=== PATIENT | female | born 1960 | race Caucasian/White ===

== ENCOUNTER → 2019-08-02 09:09 | Outpatient (CLI) | payer MEDICARE, MEDICAID, SELFPAY ==
--- NOTE | ~2019-08-02 | CT_ITS ---
EXAMINATION: CT abdomen pelvis wo con EXAM DATE: 08/02/2019 09:50 INDICATION: Left lower quadrant pain. Nausea TECHNIQUE: Spiral CT of the abdomen and pelvis was performed without contrast. Axial, coronal and s agittal images were reviewed. The dose-length product (DLP) for this examination was 348.33 mGy-cm. The exposure was tailored according to patient size (auto mA exposure control), and iterative recons truction (ASIR) was used as additional dose reduction technique. Comparison is made to prior examinat ion from 12/08/2017. FINDINGS: The liver, spleen, adrenal glands and pancreas are unremarkable. There are cholecystectomy clips. There is no nephrolithiasis or hydronephrosis. The uterus is anteverted and morphologicall y normal. The bladder is unremarkable. There is no retroperitoneal or pelvic lymphadenopathy. Th ere is mild scattered arteriosclerotic disease. The appendix is normal. The stomach and small bowel are unremarkable. There is expected amount of c olonic stool. No free intraperitoneal gas. The heart is normal in size. There are no pericardial or pleural effusions. The lung bases are unremarkable. There are no osteoblastic or osteolytic les ions identified. IMPRESSION: No acute intra-abdominal findings. Reviewed, dictated and finalized at location B. 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
== END ==
PROVIDERS: Visit Provider Surgery
DX: N20.0 Calculus of kidney (principal)
CPT/HCPCS: 74176

== ENCOUNTER 2019-09-20 12:03 | Outpatient (CLI) | payer MEDICARE, SELFPAY ==
--- NOTE | ~2019-09-20 | XR_ITS ---
EXAMINATION: XR chest 2V DATE: 09/20/2019 12:23 INDICATION: Left-sided chest tightness TECHNIQUE: PA and lateral views of the chest are obtained. COMPARISON: 04/06/2019 FINDINGS: The lungs are free of acute opacities. There is no pleural effusion or pneumothorax. The ca rdiomediastinal silhouette is normal. There is mild lower thoracic dextrocurvature. Surgical clips in the right upper quadrant are likely from prior cholecystectomy. IMPRESSION: 1. No acute cardiopulmonary abnormality. Reviewed, dictated and finalized at location A.
== END 2019-09-20 12:04 ==
PROVIDERS: PCP Family Medicine; Visit Provider Nurse Practitioner
DX: R09.89 Other specified symptoms and signs involving the circulatory and respiratory systems (principal); R06.89 Other abnormalities of breathing
CPT/HCPCS: 71046

== ENCOUNTER 2020-02-16 17:09 | Outpatient (CLI) | payer MEDICARE, SELFPAY ==
--- NOTE | ~2020-02-16 | MM_ITS ---
EXAMINATION: MM screening [facility] BI w julio césar HISTORY: Screening mammogram TECHNIQUE: Craniocaudal and mediolateral oblique 3-D tomosynthesis images were obtained and synthetic 2-D images were generated. CAD analysis was submitted and interpreted. COMPARISON: 01/20/2019, 01/08/2018, 01/01/2017 BREAST PARENCHYMAL COMPOSITION: The breasts are heterogeneously dense, which may obscure small masses . FINDINGS: There is no evidence of suspicious mass, calcification, or architectural distortion to sugg est malignancy in either breast. There has been no suspicious interval change. IMPRESSION: 1. No mammographic evidence of malignancy. 2. Recommend routine screening mammography in one year. BI-RADS Category 1: Negative Reviewed, dictated and finalized at location A.
== END 2020-02-16 17:10 | disposition home or self-care (01) ==
LOC: ANHIMG 17:11
PROVIDERS: PCP Family Medicine; Visit Provider Family Medicine
DX: Z12.31 Encounter for screening mammogram for malignant neoplasm of breast (principal)
CPT/HCPCS: 77063; 77067

== ENCOUNTER 2020-04-30 10:15 | Emergency (ER) | payer MEDICARE, SELFPAY ==
[2020-04-30 10:28] VITALS: BP 139/67; PULSE 79; RESP 16; TEMP 36.6
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
[2020-04-30] MEDS: TETANUS,DIPHTHERIA,AC PERTUSSIS ADULT (0.5 ML) BOOSTRIX IM (10:52)
== END 2020-04-30 11:15 | disposition home or self-care (01) ==
PROVIDERS: Emergency Provider Nurse Practitioner; PCP Family Medicine
DX: L03.113 Cellulitis of right upper limb (principal); Z23 Encounter for immunization; J44.9 Chronic obstructive pulmonary disease, unspecified
CPT/HCPCS: 90471; 90715; 99213; G0463

== ENCOUNTER 2020-07-16 10:19 | Outpatient (CLI) | payer MEDICARE, SELFPAY ==
--- NOTE | ~2020-07-16 | US_ITS ---
EXAMINATION: US pelvic complete w TV EXAM DATE: 07/16/2020 10:56 INDICATION: R10.2 - Pelvic and perineal pain. TECHNIQUE: Pelvic transabdominal and transvaginal sonogram was performed. There are multiple graysca le and Doppler images available for interpretation. Comparison is made to prior examination from 10/13. FINDINGS: Uterus measures 6.4 x 3.5 x 3.1 cm, is anteverted and morphologically normal. Endometrial stripe measures 5 mm, within normal limits. There is no free pelvic fluid. Right adnexa: The ovary is not identified. There is no adnexal mass. Left adnexa: The ovary measures 3.3 x 1.5 x 0.9 cm and is morphologically normal. Ovarian vascular fl ow confirmed. IMPRESSION: 1. Unremarkable pelvic ultrasound exam. Reviewed, dictated and finalized at location A. 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
== END 2020-07-16 10:20 | disposition home or self-care (01) ==
PROVIDERS: PCP Family Medicine; Visit Provider Obstetrics & Gynecology
DX: R10.2 Pelvic and perineal pain (principal)
CPT/HCPCS: 76830; 76856

== ENCOUNTER 2020-08-29 09:42 | Emergency (ER) | payer MEDICARE, SELFPAY ==
[2020-08-29] VITALS (12 sets, daily range): BP systolic 125; BP diastolic 56; PULSE 63–97; RESP 12–22; TEMP 36.4; O2SAT 100
--- NOTE | ~2020-08-29 | XR_ITS ---
EXAMINATION: XR chest 1V portable EXAM DATE: 08/29/2020 10:30 INDICATION: Mid chest pain. TECHNIQUE: Portable AP frontal chest x-ray was obtained. Comparison is made to prior examination from 09/20/2019. FINDINGS: The lungs are clear. There are no pleural effusions. The cardiomediastinal silhouette is within normal limits. There is no pneumothorax suspected. The bones and soft tissues are unremarkab le. There is no significant interval change. IMPRESSION: No acute cardiopulmonary findings. Reviewed, dictated and finalized at location B. 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
--- NOTE | 2020-08-29 09:59 | ECG_ITS ---
Measurements Intervals [place] Rate: 87 P: 58 MT: 116 QRS: 45 QRSD: 88 T: 38 QT: 345 QTc: 415 Interpretive Statements SINUS RHYTHM WITH SHORT MT INTERVAL BORDERLINE ECG Electronically Signed On 08-29-2020 10:20:39 EMPLOYMENT ADVISOR by Sam Caicedo D.O.
[2020-08-29] MEDS: ASPIRIN 81 MG CHEWABLE TABLET 324 MG PO (10:14)
--- NOTE | 2020-08-29 10:27 | ED.CHESTPAIN ---
HPI - Chest Pain General Chief Complaint: Chest Pain Stated Complaint: back pain/chest pain Time Seen by Provider: 08/29/20 09:52 Source: patient Mode of arrival: ambulatory Limitations: no limitations History of Present Illness HPI narrative: Patient presents for evaluation of an episode of 15 minutes of shooting pains that originated in her back came around both shoulders across the left side of her chest into her left arm. 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 Patient states when she stood up and took some deep breaths the pain resolved on its own within 15 minutes. Patient denies any palpitations, syncope, shortness of breath, diaphoresis, nausea, vomiting, diarrhea. She states she has been healthy recently and without any illness such as fever, chills, cough, shortness of breath. Patient states she does not have COPD and she is a smoker however she is working on smoking cessation. She states at this time she feels a little nervous but denies having any other symptoms. Patient denies history of heart attack or stroke. Patient denies having high blood pressure diabetes or high cholesterol. Related Data Allergies Allergy/AdvReac Type Severity Reaction Status Date / Time prednisone Allergy Intermediate HIVES Verified 08/29/20 09:59 Review of Systems Review of Systems: Narrative: CONSTITUTIONAL: Denies fever, chills, or sweats. EYES: Denies visual changes, redness, or discharge. ENT: Denies rhinorrhea, congestion, sore throat, or otalgia. CARDIOVASCULAR: Reports resolved shooting pain in back and chest denies current chest pain, palpitations, or edema. RESPIRATORY: Denies cough or dyspnea. GASTROINTESTINAL: Denies abdominal pain, nausea, vomiting, or diarrhea. GENITOURINARY: Denies dysuria or hematuria. SKIN: Denies rash or itching. MUSCULOSKELETAL: Denies current back pain, myalgia, or joint pain NEUROLOGIC: Denies headache, numbness, dizziness, or weakness. PSYCHIATRIC: Denies anxiety or depression. [facility] Past Medical History Medical History (Updated 08/29/20 @ 13:44 by Gaston Berry PA-C) COPD (chronic obstructive pulmonary disease) History of kidney stones Pelvic pain in female Surgical History Surgical History H/O section H/O hernia repair Hx of cholecystectomy Family History Family History Father Cancer Mother Dementia Sibling Dementia Mother Family history of Alzheimer's disease Sibling Family history of dementia Mother Patient's mother is , Onset Age: 62 Family history of Alzheimer's disease Father Patient's father is , Onset Age: 64 Other Family history of malignant neoplasm of ovary Social History Social History Smoking status: Current every day smoker Tobacco type: cigarettes Smoking end date: 06/22/95 Alcohol intake: current Exam Narrative: Exam Narrative: GENERAL: Well-appearing, well-nourished. HEAD: Normocephalic, atraumatic. EYES: PERRLA and EOMI. ENT:Mucous membranes moist. Bilateral TMs pearly chiang nonbulging NECK: Supple. No adenopathy or masses. No vertebral tenderness or loss of ROM. CHEST: Clear to auscultation. No respiratory distress. No wheezes rales or rhonchi HEART: Regular rate and rhythm. Cap refill intact peripherally. ABDOMEN: Soft, nontender, nondistended, normal active bowel sounds. No bruises noted. EXTREMITIES: No acute changes in ROM. No edema. SKIN: Warm, dry, no rash. NEURO: No focal deficits. Alert and oriented x3. PSYCH: Normal mood and affect. Course Vital Signs Vital signs: Vital Signs Temperature 97.5 F L 08/29/20 09:55 Pulse Rate 93 08/29/20 09:55 Respiratory Rate 16 08/29/20 09:55 Blood Pressure 125/56 L 08/29/20 09:55 Pul
[2020-08-29 10:43] LABS: Basophils Absolute Auto 0.1 K/mm3 (0.0-0.1); Basophils Percent Auto 1.1 % (0.2-1.2); Eosinophils Absolute Auto 0.1 K/mm3 (0-0.3); Eosinophils Percent Auto 1.5 % (0-4.4); Hematocrit 43.8 % (37.0-47.0); Hemoglobin 14.8 g/dL (12.0-15.0); Immature Granulocyte Absolute 0.01 K/mm3 (0.00-0.031); Immature Granulocyte Percent A 0.2 % (0-0.5); Lymphocytes Percent Auto 35.7 % (18.3-44.2); Mean Corpuscular HGB Conc 33.8 g/dl (32-36); Mean Corpuscular Hemoglobin 35.1 pg (26-34); Mean Corpuscular Volume 103.8 fl (80-100); Mean Platelet Volume 8.4 fl (7.4-10.4); Monocytes Absolute Auto 0.5 K/mm3 (0.1-0.6); Neutrophils Absolute Auto 2.7 K/mm3 (1.3-6.7); Neutrophils Percent Auto 51.5 % (45.5-73.1); Platelet Count Result 223 k/mm3 (150-375); Red Blood Count 4.22 M/mm3 (4.2-5.4); Red Cell Distribution Width 12.6 % (11.5-14.5); White Blood Count 5.3 K/mm3 (4.5-10.0)
[2020-08-29 10:53] LABS: Add Urine Microscopic? YES; Appearance Urine Cloudy (Clear); Bilirubin Urine Negative (Negative); Blood Urine Negative (Negative); Color Urine Yellow (Yellow); Glucose Urine UA Negative (Negative); Ketones Urine Negative (Negative); Leukocyte Esterase Ur Negative LEU/UL (Negative); Mucus Urine Rare /lpf; Nitrate Urine Negative (Negative); Protein Urine Negative (Negative); Specific Grav Ur 1.015 (1.001-1.035); Squamous Epithelial Cell Urine Many /hpf (Few); Urobilinogen Urine Negative mg/dL (<2.0); WBC Urine 0-3 /hpf
[2020-08-29 10:54] LABS: Alanine Aminotransferase 22 U/L (4-35); Albumin Level 4.3 g/dL (3.5-5.1); Alkaline Phosphatase 63 U/L (38-126); Anion Gap 4 mmol/L (8-16); Aspartate Amino Transferase 34 U/L (14-36); Bilirubin,Total 0.4 mg/dL (0.2-1.3); Blood Urea Nitrogen 13 mg/dL (7-17); Carbon Dioxide 34 mmol/L (22-30); Chloride 100 mmol/L (98-107); Estimated CRCL calculation 45 ml/min; Estimated Glomerular Filt Rate > 60; Glucose 115 mg/dL (65-105); Potassium 3.8 mmol/L (3.4-5.0); Sodium 138 mmol/L (137-145)
[2020-08-29 10:55] LABS: INR 0.9; Prothrombin Time 12.3 Seconds (11.1-14.7)
[2020-08-29 10:56] LABS: Partial Thromboplastin Time 23.5 SECONDS (22.3-36.8)
[2020-08-29 10:59] LABS: Amphetamine Screen Urine Negative (Negative); Barbiturate Screen Urine Negative (Negative); Benzodiazepines Screen Urine Negative (Negative); Cannabinoid Screen Urine Negative (Negative); Cocaine Screen Urine Negative (Negative); Methadone Screen Urine Negative (Negative); Opiate Screen Urine Negative (Negative); Phencyclidine Screen Urine Negative (Negative)
[2020-08-29 11:06] LABS: Troponin I < 0.012 ng/mL (0.000-0.034)
[2020-08-29 13:18] LABS: Troponin I < 0.012 ng/mL (0.000-0.034)
== END 2020-08-29 14:00 | disposition home or self-care (01) ==
PROVIDERS: Physician Assistant; Emergency Provider Emergency Medicine; PCP Family Medicine
DX: R07.9 Chest pain, unspecified (principal); J44.9 Chronic obstructive pulmonary disease, unspecified; Z87.442 Personal history of urinary calculi; F17.210 Nicotine dependence, cigarettes, uncomplicated; R94.31 Abnormal electrocardiogram [ECG] [EKG]
CPT/HCPCS: 36415; 71045; 80053; 80307; 81001; 84484; 85025; 85610; 85730; 93005; 99284; A9270

== ENCOUNTER 2021-07-02 15:23 | Outpatient (CLI) | payer MEDICARE, SELFPAY ==
--- NOTE | ~2021-07-02 | MM_ITS ---
EXAMINATION: MM screening [facility] BI w julio césar HISTORY: Screening TECHNIQUE: Craniocaudal and mediolateral oblique 3-D tomosynthesis images were obtained and synthetic 2-D images were generated. CAD analysis was submitted and interpreted. COMPARISON: Comparison to multiple prior studies sequentially, with oldest reviewed study dated 03/01. BREAST PARENCHYMAL COMPOSITION: The breasts are heterogenously dense, which may obscure small masses FINDINGS: There is no evidence of suspicious mass, calcification, or architectural distortion to sugg est malignancy in either breast. There has been no suspicious interval change. IMPRESSION: 1. No mammographic evidence of malignancy. 2. Recommend routine screening mammography in one year. BI-RADS Category 1: Negative Reviewed, dictated and finalized at location A. NESS CONTINUITY DIRECTOR
== END 2021-07-02 15:24 | disposition home or self-care (01) ==
LOC: ANHIMG 15:26
PROVIDERS: PCP Family Medicine; Visit Provider Family Medicine
DX: Z12.31 Encounter for screening mammogram for malignant neoplasm of breast (principal)
CPT/HCPCS: 77063; 77067

== ENCOUNTER 2021-09-25 16:04 | Outpatient (CLI) | payer MEDICARE, MEDICAID, SELFPAY ==
--- NOTE | ~2021-09-25 | CT_ITS ---
EXAMINATION: CT abdomen pelvis wo con DATE: 09/25/2021 16:42 INDICATION: Flank pain. Pelvic pain. TECHNIQUE: Computed tomography (CT) of the abdomen and pelvis was performed without intravenous contr ast. Automated exposure control and iterative reconstruction technique were employed. The dose-length product was 174.40 mGy-cm. COMPARISON: CT abdomen and pelvis 08/02/2019 FINDINGS: The visualized portions of the lung bases demonstrate mild atelectasis. No pleural effusion . The heart size is normal. No pericardial effusion. The liver and spleen are normal. There are hernadez es of cholecystectomy. The pancreas, adrenal glands, and kidneys are normal. There is no urolithiasis . There is a skin marker in left lower quadrant overlying a left-sided spigelian hernia containing fa t. The appendix is normal. There are no dilated loops of bowel. There are no pathologically enlarged lymph nodes. There is no free intraperitoneal fluid. There is severe lumbar spondylosis. There is mil d chronic anterior wedging of T11 and T12 vertebral bodies. IMPRESSION: 1. Left-sided spigelian hernia containing fat. Reviewed, dictated and finalized at location A.
== END 2021-09-25 16:05 | disposition home or self-care (01) ==
PROVIDERS: PCP Family Medicine; Visit Provider Family Medicine
DX: R10.2 Pelvic and perineal pain (principal)
CPT/HCPCS: 74176

== ENCOUNTER 2022-08-27 15:56 | Outpatient (CLI) | payer MEDICARE, SELFPAY ==
--- NOTE | ~2022-08-27 | CT_ITS ---
Non-contrast CT scan of the Abdomen and Pelvis Clinical indication: Abdominal pain Technique: 2.5 mm axial scans were obtained through the abdomen and pelvis without intravenous or or al contrast. Dose reduction technique was used on this scan by utilizing automated exposure control a nd iterative reconstruction technique. The dose-length product (DLP) was 180.83 mGy-cm. COMPARISON: 09/25/2021 Findings: Images through the lung bases reveal no abnormalities. There is no evidence of renal or ureteral calculi. The kidneys and the ureters are nondilated. Stable small hepatic cyst noted. Cholecystectomy clips present. The spleen, pancreas, and adrenals ap pear normal. There is no aortic aneurysm. There are atherosclerotic calcifications of the aorta. There is no evidence of bowel obstruction. No evidence for appendicitis. Images through the pelvis were performed. There is no evidence of ascites or lymphadenopathy. Urinary bladder unremarkable. No adnexal mass evident. Impression: No significant abnormality seen. Reviewed, dictated and finalized at [facility]. 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
== END 2022-08-27 15:57 | disposition home or self-care (01) ==
PROVIDERS: PCP Family Medicine; Visit Provider Family Medicine
DX: R10.31 Right lower quadrant pain (principal)
CPT/HCPCS: 74176

== ENCOUNTER 2022-09-17 09:20 | Emergency (ER) | payer MEDICARE, SELFPAY ==
--- NOTE | ~2022-09-17 | XR_ITS ---
XR chest 1V portable DATE: 09/17/2022 10:37 INDICATION: Cough, upper respiratory infection TECHNIQUE: Portable upright AP chest on 09/17/2022 at 1033 hours COMPARISON: 08/29/2020 portable AP chest FINDINGS: Normal heart size. Mild aortic unfolding. No hilar or mediastinal enlargement. The lungs appear moderately hyperinflated but clear of infiltrate or consolidation. No pleural effusi on or pulmonary vascular congestion or pneumothorax. Osteopenia. Mild upper thoracic levoscoliosis. IMPRESSION: No active cardiopulmonary disease Reviewed, dictated and finalized at location B.
[2022-09-17 09:22] VITALS: BP 120/68; PULSE 81; RESP 20; TEMP 36.1; O2SAT 97
[2022-09-17 10:12] LABS: Influenza A QL RT-PCR Negative (Negative); Influenza B QL RT-PCR Negative (Negative); SARS-CoV-2 RNA PCR Negative
[2022-09-17 11:18] VITALS: BP 116/71; PULSE 70; RESP 20; O2SAT 98
--- NOTE | 2022-09-17 11:35 | ED.GENADULT ---
HPI - General Adult General Chief complaint: Upper Respiratory Infection Stated complaint: uri Time Seen by Provider: 09/17/22 10:30 Source: patient Mode of arrival: ambulatory Limitations: no limitations History of Present Illness HPI narrative: This is a 62-year-old patient presents to the ED with chief complaint of viral URI symptoms x1 week. Reports cough, congestion, runny nose and sore throat. She states she has tried multiple [id number] medicines with no relief of the cough. She has a regular PCP that she is able to see. Patient denies fevers, shortness of breath, chest pain. PCP recommended going to the ER in case she needs an x-ray. Related Data Home Medications Medication Instructions Recorded Confirmed albuterol sulfate 90 mcg/actuation 1 puff inhalation Q4H PRN 12/03/21 aerosol inhaler cholecalciferol (vitamin D3) 50 50 mcg PO DAILY 12/03/21 mcg (2,000 unit) tablet meloxicam 15 mg tablet 15 mg PO DAILY 12/03/21 Allergies Allergy/AdvReac Type Severity Reaction Status Date / Time morphine Allergy Intermediate Hives Verified 12/03/21 14:29 prednisone Allergy Intermediate HIVES Verified 12/03/21 14:29 tramadol Allergy Intermediate Hives Uncoded 12/03/21 14:29 Review of Systems Review of Systems: CONSTITUTIONAL: Denies fever, chills, or sweats. EYES: Denies visual changes, redness, or discharge. ENT: Endorses sore throat, congestion, rhinorrhea, sinus pressure. Denies otalgia. CARDIOVASCULAR: Denies chest pain, palpitations, or edema. RESPIRATORY: Endorses cough. Denies dyspnea. GASTROINTESTINAL: Denies abdominal pain, nausea, vomiting, or diarrhea. GENITOURINARY: Denies dysuria or hematuria. SKIN: Denies rash or itching. MUSCULOSKELETAL: Denies back pain, joint pain, or myalgia. NEUROLOGIC: Denies headache, numbness, dizziness, or weakness. PSYCHIATRIC: Denies anxiety or depression. [facility] Past Medical History Medical History (Updated 09/17/22 @ 11:39 by Harry Ly PA-C) COPD (chronic obstructive pulmonary disease) History of kidney stones Pelvic pain in female Surgical History Surgical History H/O section H/O hernia repair Hx of cholecystectomy Family History Family History Father Cancer Mother Dementia Sibling Dementia Mother Family history of Alzheimer's disease Sibling Family history of dementia Mother Patient's mother is , Onset Age: 62 Family history of Alzheimer's disease Father Patient's father is , Onset Age: 64 Other Family history of malignant neoplasm of ovary Social History Social History Smoking status: Current every day smoker Tobacco type: cigarettes Smoking end date: 06/22/95 Alcohol intake: current Substance use: never Living arrangements: with family Exam Narrative: GENERAL: Well-appearing, well-nourished, and in no acute distress. HEAD: Normocephalic, atraumatic. EYES: PERRLA and EOMI. ENT: Nares clear, no rhinorrhea or epistaxis. Mucous membranes moist. Oropharynx without tonsillar hypertrophy exudate or other lesions. NECK: Supple. No adenopathy or masses. CHEST: No respiratory distress. Clear to auscultation. No wheezes rales or rhonchi HEART: Regular rate and rhythm. No murmur heard. Normal peripheral pulses. ABDOMEN: Soft, nontender, nondistended, normal active bowel sounds. EXTREMITIES: Normal range of motion. No edema. SKIN: Warm, dry, no rash. NEURO: Alert and oriented x3. No focal deficits. PSYCH: Normal mood and affect. Course Vital Signs Vital signs: Vital Signs Temperature 97.0 F L 09/17/22 09:22 Pulse Rate 81 09/17/22 09:22 Respiratory Rate 20 09/17/22 09:22 Blood Pressure 120/68 09/17/22 09:22 Pulse Oximetry 97 09/17/22 09:22 Oxygen Delivery Room Air 09/17/22 09:22 Temperature
== END 2022-09-17 11:58 | disposition home or self-care (01) ==
PROVIDERS: Emergency Medicine; Emergency Provider Physician Assistant; PCP Family Medicine
DX: J06.9 Acute upper respiratory infection, unspecified (principal); F17.210 Nicotine dependence, cigarettes, uncomplicated; Z20.822 Contact with and (suspected) exposure to COVID-19
CPT/HCPCS: 71045; 87636; 99283

== ENCOUNTER 2023-01-27 08:30 | Outpatient (CLI) | payer MEDICARE, MEDICAID, SELFPAY ==
--- NOTE | ~2023-01-27 | MR_ITS ---
EXAMINATION: MR abdomen wo/w con DATE: 01/27/2023 09:48 INDICATION: Right abdominal mass and pain. TECHNIQUE: Magnetic resonance imaging (MRI) of the abdomen was performed without and with 9 mL MultiH ance intravenous contrast. COMPARISON: CT abdomen and pelvis 08/27/2022 FINDINGS: There are cysts in the liver measuring up to 5 mm. The gallbladder is absent. The pancreas, spleen, a drenal glands, and kidneys are normal. There are no dilated loops of bowel. There are no pathological ly enlarged lymph nodes. There is no ascites. There is a right-sided spigelian hernia containing fat. IMPRESSION: 1. Right-sided spigelian hernia containing fat. Reviewed, dictated and finalized at location A.
== END 2023-01-27 08:31 | disposition home or self-care (01) ==
PROVIDERS: Visit Provider Surgery
DX: K43.9 Ventral hernia without obstruction or gangrene (principal); R22.2 Localized swelling, mass and lump, trunk; R10.31 Right lower quadrant pain
CPT/HCPCS: 74183; A9577

== ENCOUNTER 2023-05-12 10:07 | Emergency (ER) | payer MEDICARE, SELFPAY ==
[2023-05-12] VITALS (8 sets, daily range): BP systolic 123–129; BP diastolic 63–69; PULSE 57–81; RESP 12–24; TEMP 36.2; O2SAT 100
--- NOTE | ~2023-05-12 | XR_ITS ---
EXAMINATION: XR chest 2V 05/12/2023 11:00 INDICATION: Chest pain PROCEDURE: 2 view chest COMPARISON: Comparison to multiple prior studies sequentially, with oldest reviewed study dated 03/22. FINDINGS: The lungs are clear. The lungs are hyperinflated which is consistent with, but not diagnost ic of chronic obstructive pulmonary disease. The cardiomediastinal silhouette is within normal limits . There are no pleural effusions. There is no pneumothorax suspected. IMPRESSION: 1: NO ACUTE CARDIOPULMONARY DISEASE. Reviewed, dictated and finalized at location L. 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
--- NOTE | 2023-05-12 10:09 | ECG_ITS ---
Measurements Intervals [place] Rate: 71 P: 72 PA: 118 QRS: 78 QRSD: 81 T: 57 QT: 357 QTc: 390 Interpretive Statements SINUS RHYTHM WITH SHORT PA INTERVAL RSR' IN V1 OR V2, PROBABLY NORMAL VARIANT BORDERLINE T WAVE ABNORMALITY- ANTERIOR LEADS BASELINE ARTIFACT- I, III, AVR, AVL BORDERLINE ECG COMPARED TO ECG 08/29/2020 10:01:37 NO SIGNIFICANT CHANGES Electronically Signed On 05-12-2023 11:00:54 SHORE HAND DREDGE OR BARGE by Sam Caicedo D.O.
[2023-05-12 10:35] LABS: Basophils Absolute Auto 0.1 K/mm3 (0.0-0.1); Basophils Percent Auto 1.4 % (0.2-1.2); Eosinophils Absolute Auto 0.5 K/mm3 (0-0.3); Eosinophils Percent Auto 6.9 % (0-4.4); Hematocrit 41.7 % (37.0-47.0); Hemoglobin 13.5 g/dL (12.0-15.0); Immature Granulocyte Absolute 0.02 K/mm3 (0.00-0.031); Immature Granulocyte Percent A 0.3 % (0-0.5); Lymphocytes Percent Auto 35.3 % (18.3-44.2); Mean Corpuscular HGB Conc 32.4 g/dl (32-36); Mean Corpuscular Hemoglobin 33.6 pg (26-34); Mean Corpuscular Volume 103.7 fl (80-100); Mean Platelet Volume 8.5 fl (7.4-10.4); Monocytes Absolute Auto 0.5 K/mm3 (0.1-0.6); Monocytes Percent Auto 6.3 % (2.6-8.5); Neutrophils Absolute Auto 3.5 K/mm3 (1.3-6.7); Neutrophils Percent Auto 49.8 % (45.5-73.1); Platelet Count Result 245 k/mm3 (150-375); Red Blood Count 4.02 M/mm3 (4.2-5.4); Red Cell Distribution Width 12.8 % (11.5-14.5); White Blood Count 7.1 K/mm3 (4.5-10.0)
[2023-05-12 10:47] LABS: Partial Thromboplastin Time 21.5 SECONDS (22.3-36.8); Prothrombin Time 13.4 Seconds (11.1-14.7)
[2023-05-12 10:49] LABS: Alanine Aminotransferase 16 U/L (6-35); Albumin Level 4.1 g/dL (3.5-5.1); Alkaline Phosphatase 59 U/L (38-126); Anion Gap 8 mmol/L (8-16); Aspartate Amino Transferase 27 U/L (14-36); Bilirubin,Total 0.6 mg/dL (0.2-1.3); Blood Urea Nitrogen 16 mg/dL (7-17); Calcium 8.9 mg/dL (8.4-10.2); Carbon Dioxide 27 mmol/L (22-30); Chloride 105 mmol/L (98-107); Estimated CRCL calculation 52 ml/min; Estimated Glomerular Filt Rate > 60; Glucose 101 mg/dL (65-110); Lipase 177 U/L (23-300); Potassium 3.6 mmol/L (3.4-5.0); Sodium 140 mmol/L (137-145)
[2023-05-12 10:59] LABS: Troponin I < 0.012 ng/mL (0.000-0.034)
--- NOTE | 2023-05-12 11:25 | ED.CHESTPAIN ---
HPI - Chest Pain General Chief Complaint: Chest Pain Stated Complaint: L CHEST/ARM PAIN Time Seen by Provider: 05/12/23 11:09 History of Present Illness HPI narrative: 62-year-old female presents emergency department for evaluation of left-sided chest pain patient reports she had a short episode this morning where she had left-sided chest pain. Patient states he has had this pain previously. Patient is a smoker but denies any prior history of coronary artery disease. Patient denies any history of high cholesterol or hypertension. The patient does report a prior history of abdominal surgeries. Related Data Home Medications Medication Instructions Recorded Confirmed albuterol sulfate 90 mcg/actuation 1 puff inhalation Q4H PRN 12/03/21 aerosol inhaler cholecalciferol (vitamin D3) 50 50 mcg PO DAILY 12/03/21 mcg (2,000 unit) tablet meloxicam 15 mg tablet 15 mg PO DAILY 12/03/21 Allergies Allergy/AdvReac Type Severity Reaction Status Date / Time morphine Allergy Intermediate Hives Verified 12/03/21 14:29 prednisone Allergy Intermediate HIVES Verified 12/03/21 14:29 tramadol Allergy Intermediate Hives Uncoded 12/03/21 14:29 Review of Systems Review of Systems: All systems reviewed & are unremarkable except as noted in HPI and below PMFSH Past Medical History Medical History (Updated 05/12/23 @ 17:55 by Duane Dunn MD) COPD (chronic obstructive pulmonary disease) History of kidney stones Pelvic pain in female Surgical History Surgical History H/O section H/O hernia repair Hx of cholecystectomy Family History Family History Father Cancer Mother Dementia Sibling Dementia Mother Family history of Alzheimer's disease Sibling Family history of dementia Mother Patient's mother is , Onset Age: 62 Family history of Alzheimer's disease Father Patient's father is , Onset Age: 64 Other Family history of malignant neoplasm of ovary Social History Social History Smoking status: Current every day smoker Tobacco type: cigarettes Smoking end date: 06/22/95 Alcohol intake: current Substance use: never Living arrangements: with family Exam Narrative: APPEARANCE: Well appearing, no pain, no distress, well-nourished. HEAD: normocephalic, atraumatic. EYES: PERRLA/EOMI, conjunctivae clear. NOSE: Normal no drainage EARS:TMS clear with good light reflex. THROAT: Pharynx clear, no exudate. NECK: Supple. No adenopathy, no masses. RESPIRATORY: Airway patent, respirations nonlabored. Clear to auscultation bilaterally, no rales, rhonchi, wheezing. CARDIOVASCULAR: Regular rate and rhythm without murmurs rubs or gallops. ABDOMINAL: Soft, nontender, nondistended, normal bowel sounds MUSCULOSKELETAL: Moves all extremities. Strength/ROM intact, No edema, No calf tenderness. NEURO: Alert. Cranial nerves II through XII intact. Good gait. Good coordination SKIN: Warm, dry. Normal Color Course Course Emergency Course: the patient left AMA prior to completing her medical workup. Vital Signs Vital signs: Vital Signs Temperature 97.2 F L 05/12/23 10:21 Pulse Rate 81 05/12/23 10:21 Respiratory Rate 16 05/12/23 10:21 Blood Pressure 129/69 05/12/23 10:21 Pulse Oximetry 100 05/12/23 10:21 Oxygen Delivery Room Air 05/12/23 10:21 Temperature 97.2 F L 05/12/23 10:21 Pulse Rate 57 L 05/12/23 12:01 Respiratory Rate 24 H 05/12/23 12:01 Blood Pressure 126/63 05/12/23 12:01 Pulse Oximetry 100 05/12/23 12:01 Oxygen Delivery Room Air 05/12/23 10:21 MDM - Chest Pain Lab Data Attestation: I reviewed the patient's lab results. 05/12/23 10:27 05/12/23 10:27 Labs: Lab Results 05/12/23 Range/Units 10:27 WBC 7.1 (4.5-10.
== END 2023-05-12 12:36 | disposition left against medical advice (07) ==
LOC: ANHED 11:48
PROVIDERS: Emergency Provider Emergency Medicine; PCP Family Medicine
DX: R07.9 Chest pain, unspecified (principal); J44.9 Chronic obstructive pulmonary disease, unspecified; Z87.442 Personal history of urinary calculi
CPT/HCPCS: 36415; 71046; 80053; 83690; 84484; 85025; 85610; 85730; 93005; 99284

== ENCOUNTER 2023-11-23 12:57 | Emergency (ER) | payer MEDICARE, SELFPAY ==
--- NOTE | ~2023-11-23 | XR_ITS ---
EXAMINATION: XR lumbar spine min 4V DATE: 11/23/2023 15:03 INDICATION: Back pain. TECHNIQUE: 5 views of lumbar spine were obtained. COMPARISON: Lumbar spine radiographs 01/31/2019 FINDINGS: There is 6 degrees levocurvature of lumbar spine. There is 4 mm retrolisthesis of L3 on L4 and L4 on L5. Vertebral body heights are normal. There is severely decreased disc height at L3-L4 and mildly decreased disc height at L4-L5. There is multilevel mild facet joint osteoarthritis. Surgical clips in the right upper quadrant are likely from cholecystectomy. IMPRESSION: 1. Severe lumbar spondylosis. Reviewed, dictated and finalized at location A.
[2023-11-23 13:00] VITALS: BP 145/68; PULSE 97; RESP 16; TEMP 36.7; O2SAT 99
--- NOTE | 2023-11-23 14:45 | ED.LOWEXIN ---
HPI - Extremity Injury (Lower) General Chief Complaint: Extremity Injury, Lower <Dominga Storey PA-C - Last Filed: 11/23/23 14:55> Stated Complaint: right leg pain, history of sciatic nerve pain <Dominga Storey PA-C - Last Filed: 11/23/23 14:55> Time Seen by Provider: 11/23/23 14:45 <RACHELE Alvarado Last Filed: 11/23/23 14:55> Focused HPI: Patient is a 63 y/o female who presents to the ED with c/o R lower back pain. Patient reports having increased pain for the past 2 days. Hx of sciatica that felt similar. Denies any recent injury, strenuous activity, heavy lifting. Pain worse with movement and walking. Has been taking Ibuprofen for the pain w/o relief. Last took around 5am this morning. Denies numbness, weakness, saddle anesthesia, bowel/bladder incontinence, dysuria, hematuria, abdominal pain. GENERAL: Mildly uncomfortable-appearing, thin, and in no acute distress. HEAD: Normocephalic, atraumatic. CHEST: Clear to auscultation. ?No respiratory distress. HEART: Regular rate and rhythm.? MSK: TTP in R lower lumbar region, along SI joint, reproducing pain. Sensation intact. No midline spinal tenderness. NEURO: ?Alert and oriented x3. Patient screened in triage and initial orders placed.? ?Additional care and disposition to be based upon?diagnostic testing and treatment. <Dominga Storey PA-C - Last Filed: 11/23/23 14:55> Source: patient <Dominga Storey PA-C - Last Filed: 11/23/23 14:55> Mode of arrival: ambulatory <RACHELE Alvarado Last Filed: 11/23/23 14:55> Limitations: no limitations <RACHELE Alvarado Last Filed: 11/23/23 14:55> History of Present Illness HPI Narrative: Agree with HPI <Rehan Olivier MD - Last Filed: 11/23/23 19:32> Related Data Home Medications: Home Medications Medication Instructions Recorded Confirmed albuterol sulfate 90 mcg/actuation 1 puff inhalation Q4H PRN 12/03/21 05/21/23 aerosol inhaler cholecalciferol (vitamin D3) 50 50 mcg PO DAILY 12/03/21 05/21/23 mcg (2,000 unit) tablet ibuprofen 800 mg tablet 800 mg PO Q6H 05/20/23 05/21/23 <Dominga Storey PA-C - Last Filed: 11/23/23 14:55> Allergies/Adverse Reactions: Allergies Allergy/AdvReac Type Severity Reaction Status Date / Time morphine Allergy Intermediate Hives Verified 11/23/23 15:26 prednisone Allergy Intermediate HIVES Verified 11/23/23 15:26 tramadol Allergy Intermediate Hives Uncoded 11/23/23 15:26 <Dominga Storey PA-C - Last Filed: 11/23/23 14:55> Review of Systems Constitutional: Constitutional: Reports no additional constitutional complaints <Rehan Olivier MD - Last Filed: 11/23/23 19:32> Musculoskeletal: Musculoskeletal: Reports back pain, Denies arthralgias and Denies joint swelling <Rehan Olivier MD - Last Filed: 11/23/23 19:32> Integumentary/Breasts: Skin/Breast: Reports system reviewed and no additional complaints, except as docu <Rehan Olivier MD - Last Filed: 11/23/23 19:32> Neurologic: Reports system reviewed and no additional complaints, except as documented <Rehan Olivier MD - Last Filed: 11/23/23 19:32> [facility] Past Medical History Medical History: Medical History (Updated 11/23/23 @ 16:43 by Rehan Olivier MD) History of kidney stones Pelvic pain in female <Dominga Storey PA-C - Last Filed: 11/23/23 14:55> Surgical History Surgical History: Surgical History (Updated 05/21/23 @ 10:24 by Lorenza Antoine [facility]) H/O section H/O hernia repair 12/13/21 Left lower quadrant incisional hernia and repair of left femoral and obturator hernia repair. Dr. Salazar Walker, [facility] H/O hernia repair 04/21/23 Open left sided trocar incisional hernia repair, no mesh. Dr. Salazar Walker, [facility] Hx of cholecystectomy Hx of hernia repair 03/31/23 Robotic assisted right Spigelian hernia repair
[2023-11-23] MEDS: CYCLOBENZAPRINE HCL 5 MG TABLET PO (15:31)
[2023-11-23] MEDS: KETOROLAC (*BKC) 60 MG/2 ML VIAL IM (15:31)
[2023-11-23] MEDS: ACETAMINOPHEN 500 MG TABLET 1000 MG PO (15:32)
[2023-11-23 17:30] VITALS: BP 140/62; PULSE 96; RESP 18; O2SAT 99
[2023-11-23 17:31] VITALS: BP 140/62; PULSE 96; RESP 18; O2SAT 99
== END 2023-11-23 17:36 | disposition home or self-care (01) ==
PROVIDERS: Emergency Provider Emergency Medicine; PCP Family Medicine
DX: M54.41 Lumbago with sciatica, right side (principal); F17.210 Nicotine dependence, cigarettes, uncomplicated
CPT/HCPCS: 72110; 96372; 99283; A9270; J1885

== ENCOUNTER 2023-12-06 06:20 | Emergency (ER) | payer MEDICARE, SELFPAY ==
[2023-12-06 06:23] VITALS: BP 167/107; PULSE 84; RESP 16; TEMP 36.3; O2SAT 97
[2023-12-06] MEDS: CYCLOBENZAPRINE HCL 10 MG TABLET PO (07:26)
[2023-12-06] MEDS: HYDROcodone/acetaminophen (*CRX) 5-325 MG TABLET 1 TAB PO (07:26)
--- NOTE | 2023-12-06 07:39 | ED.GENADULT ---
HPI - General Adult General Chief complaint: Unspecified Stated complaint: sciatica Time Seen by Provider: 12/06/23 06:51 History of Present Illness HPI narrative: 63-year-old female presenting to the emergency department for evaluation for back pain. Patient does have history of sciatica and has had worsening sciatica symptoms for the last few weeks. Patient did have follow-up with her physician yesterday and was started on ibuprofen, muscle relaxant and gabapentin. Patient arrives to the emergency department complaining of uncontrolled pain. Related Data Home Medications Medication Instructions Recorded Confirmed albuterol sulfate 90 mcg/actuation 1 puff inhalation Q4H PRN 12/03/21 05/21/23 aerosol inhaler cholecalciferol (vitamin D3) 50 50 mcg PO DAILY 12/03/21 05/21/23 mcg (2,000 unit) tablet ibuprofen 800 mg tablet 800 mg PO Q6H 05/20/23 05/21/23 Allergies Allergy/AdvReac Type Severity Reaction Status Date / Time morphine Allergy Intermediate Hives Verified 12/06/23 06:28 prednisone Allergy Intermediate HIVES Verified 12/06/23 06:28 tramadol Allergy Intermediate Hives Verified 12/06/23 07:18 Review of Systems Review of Systems: All systems reviewed & are unremarkable except as noted in HPI and below PMFSH Past Medical History Medical History (Updated 12/06/23 @ 08:42 by Duane Dunn MD) History of kidney stones Pelvic pain in female Surgical History Surgical History (Updated 05/21/23 @ 10:24 by Lorenza Antoine CMA) H/O section H/O hernia repair 12/13/21 Left lower quadrant incisional hernia and repair of left femoral and obturator hernia repair. Dr. Salazar Walker [facility] H/O hernia repair 04/21/23 Open left sided trocar incisional hernia repair, no mesh. Dr. Salazar Walker [facility] Hx of cholecystectomy Hx of hernia repair 03/31/23 Robotic assisted right Spigelian hernia repair. Dr. Salazar Walker [facility] Family History Family History Father Cancer Mother Dementia Sibling Dementia Mother Family history of Alzheimer's disease Sibling Family history of dementia Mother Patient's mother is , Onset Age: 62 Family history of Alzheimer's disease Father Patient's father is , Onset Age: 64 Other Family history of malignant neoplasm of ovary Social History Social History Smoking status: Current every day smoker Tobacco type: cigarettes Smoking end date: 06/22/95 Alcohol intake: current Substance use: never Living arrangements: with family Exam Narrative: APPEARANCE: Uncomfortable appearing HEAD: normocephalic, atraumatic. EYES: PERRLA/EOMI, conjunctivae clear. NOSE: Normal no drainage EARS:TMS clear with good light reflex. THROAT: Pharynx clear, no exudate. NECK: Supple. No adenopathy, no masses. RESPIRATORY: Airway patent, respirations nonlabored. Clear to auscultation bilaterally, no rales, rhonchi, wheezing. CARDIOVASCULAR: Regular rate and rhythm without murmurs rubs or gallops. ABDOMINAL: Soft, nontender, nondistended, normal bowel sounds MUSCULOSKELETAL: Moves all extremities. Strength/ROM intact, No edema, No calf tenderness. NEURO: Alert. Cranial nerves II through XII intact. Neurologic intact SKIN: Warm, dry. Normal Color Course Vital Signs Vital signs: Vital Signs Temperature 97.4 F L 12/06/23 06:23 Pulse Rate 84 12/06/23 06:23 Respiratory Rate 16 12/06/23 06:23 Blood Pressure 167/107 H 12/06/23 06:23 Pulse Oximetry 97 12/06/23 06:23 Temperature 97.4 F L 12/06/23 06:23 Pulse Rate 84 12/06/23 06:23 Respiratory Rate 16 12/06/23 06:23 Blood Pressure 167/107 H 12/06/23 06:23 Pulse Oximetry 97 12/06/23 06:23 Medical Decision Making [facility] Narrative Medical decision making narrative: 63-year-old fema
[2023-12-06] MEDS: KETOROLAC 15 MG/ML VIAL (*BKC) IV PUSH (07:50)
[2023-12-06] MEDS: HYDROmorphone HCL INJ (*CRX) 1 MG/ML SYR IV PUSH (07:50)
== END 2023-12-06 09:30 | disposition home or self-care (01) ==
PROVIDERS: Emergency Provider Emergency Medicine; PCP Clinical Nurse Specialist
DX: M54.40 Lumbago with sciatica, unspecified side (principal); Z87.442 Personal history of urinary calculi; Z87.891 Personal history of nicotine dependence; Z90.49 Acquired absence of other specified parts of digestive tract
CPT/HCPCS: 96374; 96375; 99284; A9270; J1170; J1885

== ENCOUNTER 2023-12-21 13:20 | Emergency (ER) | payer MEDICARE, SELFPAY ==
--- NOTE | ~2023-12-21 | XR_ITS ---
XR ankle RT min 3V Ordering provider: Jose Alberto Harper MD History: . injury . Comparison: December 18, 2015 FINDINGS: BONES: No acute fracture or dislocation. Lucency seen over the fibula in the oblique views most like ly summation shadow. Calcaneus spur. Postoperative changes in the metatarsal bones JOINT SPACES: Normal. SOFT TISSUES: Normal. IMPRESSION: No definite acute osseous abnormality of the right ankle. Reviewed, dictated and finalized at location A.
[2023-12-21 13:28] VITALS: BP 129/61; PULSE 89; RESP 16; TEMP 36.4; O2SAT 98
--- NOTE | 2023-12-21 16:42 | ED.GENADULT ---
HPI - General Adult General Chief complaint: Back Pain/Injury Stated complaint: sciatica Time Seen by Provider: 12/21/23 15:54 History of Present Illness HPI narrative: This is a 63-year-old female presenting with multiple minor complaints. Patient tripped over a curb yesterday and rolled her ankle. She has some mild bruising in her ankle. She has been able to bear weight. She has taken hydrocodone for pain control which has been effective. He also has mild swelling over the dorsal aspect of her left hand. No erythema. No trauma that she can remember. No significant pain. Patient also has sciatica pain but that is chronic and not be addressed today. Related Data Home Medications Medication Instructions Recorded Confirmed albuterol sulfate 90 mcg/actuation 1 puff inhalation Q4H PRN 12/03/21 12/11/23 aerosol inhaler cholecalciferol (vitamin D3) 50 50 mcg PO DAILY 12/03/21 12/11/23 mcg (2,000 unit) tablet methocarbamol 750 mg tablet 750 mg PO Q8H 12/09/23 12/11/23 acetaminophen 325 mg tablet 325 mg PO Q4-6H PRN 12/11/23 12/11/23 (Tylenol) gabapentin 100 mg capsule 100 mg PO BID 12/11/23 12/11/23 gabapentin 300 mg capsule 300 mg PO QHS 12/11/23 12/11/23 Allergies Allergy/AdvReac Type Severity Reaction Status Date / Time morphine Allergy Intermediate Hives Verified 12/21/23 13:20 prednisone Allergy Intermediate HIVES Verified 12/21/23 13:20 tramadol Allergy Intermediate Hives Verified 12/21/23 13:20 [facility] Past Medical History Medical History Abnormal MRI of abdomen Anxiety disorder, unspecified Diffuse abdominal pain History of kidney stones LLQ abdominal pain Pelvic pain in female RUQ abdominal mass Sore throat Vaginal discharge Surgical History Surgical History H/O section H/O hernia repair 12/13/21 Left lower quadrant incisional hernia and repair of left femoral and obturator hernia repair. Dr. Salazar Walker, [facility] H/O hernia repair 04/21/23 Open left sided trocar incisional hernia repair, no mesh. Dr. Salazar Walker, [facility] Hx of cholecystectomy Hx of hernia repair 03/31/23 Robotic assisted right Spigelian hernia repair. Dr. Salazar Walker, [facility] Family History Family History Father Cancer Mother Dementia Sibling Dementia Mother Family history of Alzheimer's disease Sibling Family history of dementia Mother Patient's mother is , Onset Age: 62 Family history of Alzheimer's disease Father Patient's father is , Onset Age: 64 Other Family history of malignant neoplasm of ovary Social History Social History Smoking status: Current every day smoker Tobacco type: cigarettes Smoking end date: 06/22/95 Alcohol intake: current Substance use: never Living arrangements: with family Exam Narrative: APPEARANCE: No apparent distress. Head: atraumatic. EYES: EOMI, NOSE: Atraumatic NECK: Trachea midline RESPIRATORY: No increased rate of breathing CARDIOVASCULAR: RRR, ABDOMINAL: Non-distended MUSCULOSKELETAl: Focal exam of the right ankle showed mild bruising. No tenderness over the posterior malleoli or the base of the 5th metatarsal. Patient is able to ambulate. Cap refill less than 2 seconds. Focal exam of the left hand showed very mild/almost undetectable edema of the left hand in between the thumb and the forefinger. No overlying skin changes. Nontender NEURO: Alert. Moving 4/4 extremities SKIN:: Warm, dry. Normal color PSYCHIATRIC: Normal affect Course Vital Signs Vital signs: Vital Signs Temperature 97.6 F 12/21/23 13:28 Pulse Rate 89 12/21/23 13:28 Respiratory Rate 16 12/21/23 13:28 Blood Pressure 129/61 12/21/23 13:28
[2023-12-21 17:16] VITALS: BP 132/69; PULSE 66; RESP 17; TEMP 36.9; O2SAT 99
== END 2023-12-21 17:17 | disposition home or self-care (01) ==
LOC: ANHED 16:50
PROVIDERS: Emergency Provider Emergency Medicine; PCP Nurse Practitioner Family
DX: S93.401A Sprain of unspecified ligament of right ankle, initial encounter (principal); F17.210 Nicotine dependence, cigarettes, uncomplicated; W01.0XXA Fall on same level from slipping, tripping and stumbling without subsequent striking against object, initial encounter
CPT/HCPCS: 73610; 99283

== ENCOUNTER 2023-12-25 10:47 | Outpatient (CLI) | payer MEDICARE, SELFPAY ==
--- NOTE | ~2023-12-25 | XR_ITS ---
EXAMINATION: XR hand LT 2V DATE: 12/25/2023 11:12 INDICATION: Other specified soft tissue disorders. TECHNIQUE: 2 views of left hand were obtained. COMPARISON: Left thumb radiograph 03/23/2019 FINDINGS: Bone alignment is normal. No fracture. There is severe osteoarthritis of first carpometacar pal joint. IMPRESSION: 1. Severe osteoarthritis of first carpometacarpal joint. Reviewed, dictated and finalized at location A.
== END 2023-12-25 10:48 | disposition home or self-care (01) ==
PROVIDERS: PCP Nurse Practitioner Family; Visit Provider Nurse Practitioner Family
DX: M79.89 Other specified soft tissue disorders (principal); M19.032 Primary osteoarthritis, left wrist
CPT/HCPCS: 73120

== ENCOUNTER 2024-04-07 09:28 | Emergency (ER) | payer MEDICARE, SELFPAY ==
[2024-04-07 09:35] VITALS: BP 151/62; PULSE 79; RESP 14; TEMP 36.3; O2SAT 100
[2024-04-07] MEDS: LIDOCAINE 5% PATCH 1 PATCH TRANSDERM (10:42)
[2024-04-07] MEDS: KETOROLAC (*BKC) 60 MG/2 ML VIAL IM (10:43)
[2024-04-07] MEDS: methylPREDNISolone SOD SUCC 125 MG VIAL IM (10:43)
[2024-04-07 11:00] VITALS: BP 132/80; PULSE 74; RESP 16; TEMP 36.6; O2SAT 97
--- NOTE | 2024-04-07 11:13 | ED.BACK ---
HPI - Back Pain/Injury General Chief Complaint: Back Pain/Injury Stated Complaint: back pain Time Seen by Provider: 04/07/24 09:48 Source: patient Mode of arrival: ambulatory Limitations: no limitations History of Present Illness HPI Narrative: Patient is a 63-year-old female who presents the ED with report of lower back pain. patient reports history of sciatica and states current pain feels similar to this. She reports having increased pain over the last 4-5 days. Present throughout her right lower back, with intermittent radiation down her right lower extremity. Has been taking Tylenol and gabapentin for this at home. Denies bowel or bladder incontinence, numbness of leg, weakness of legs, saddle anesthesia, abdominal pain, fevers. Related Data Home Medications Medication Instructions Recorded Confirmed albuterol sulfate 90 mcg/actuation 1 puff inhalation Q4H PRN 12/03/21 02/23/24 aerosol inhaler cholecalciferol (vitamin D3) 50 50 mcg PO DAILY 12/03/21 02/23/24 mcg (2,000 unit) tablet acetaminophen 325 mg tablet 325 mg PO Q4-6H PRN 12/11/23 02/23/24 (Tylenol) gabapentin 100 mg capsule 100 mg PO BID 12/11/23 02/23/24 gabapentin 300 mg capsule 300 mg PO QHS 12/11/23 02/23/24 hydrocodone 5 mg-acetaminophen 325 1 tablet PO Q8H PRN 01/20/24 02/23/24 mg tablet ibuprofen 600 mg tablet 600 mg PO TID 01/20/24 02/23/24 Allergies Allergy/AdvReac Type Severity Reaction Status Date / Time morphine Allergy Intermediate Hives Verified 02/23/24 10:48 tramadol Allergy Intermediate Hives Verified 02/23/24 10:48 Review of Systems Review of Systems: All systems reviewed & are unremarkable except as noted in HPI. All systems reviewed & are unremarkable except as noted in HPI and below PMFSH Past Medical History Medical History Abnormal MRI of abdomen Anxiety disorder, unspecified Diffuse abdominal pain History of kidney stones Intracranial aneurysm Left hand pain LLQ abdominal pain Muscle contraction headache Pelvic pain in female Right ankle pain RUQ abdominal mass Sore throat Vaginal discharge Surgical History Surgical History H/O section H/O hernia repair 12/13/21 Left lower quadrant incisional hernia and repair of left femoral and obturator hernia repair. Dr. Salazar Walker, [facility] H/O hernia repair 04/21/23 Open left sided trocar incisional hernia repair, no mesh. Dr. Salazar Walker, [facility] Hx of cholecystectomy Hx of hernia repair 03/31/23 Robotic assisted right Spigelian hernia repair. Dr. Salazar Walker [facility] Family History Family History Father Cancer Mother Dementia Sibling Dementia Mother Family history of Alzheimer's disease Sibling Family history of dementia Mother Patient's mother is , Onset Age: 62 Family history of Alzheimer's disease Father Patient's father is , Onset Age: 64 Other Family history of malignant neoplasm of ovary Social History Social History Smoking packs per day: 1 Smoking cigarettes per day: 20.0 Smoking status: Current every day smoker Tobacco type: cigarettes Alcohol intake: current Alcohol use details: beer socially Substance use: never Living arrangements: with family Exam Narrative: GENERAL: Well appearing, thin, non-toxic, in no acute distress. HEAD: Normocephalic, atraumatic. RESPIRATORY: Airway patent, respirations nonlabored. Clear to auscultation bilaterally, no rales, rhonchi, wheezing. CARDIOVASCULAR: Regular rate and rhythm without murmurs, rubs, or gallops. MUSCULOSKELETAL: Moves all extremities. No gross deformities. Focal tenderness to palpation over right SI region, reproducing p
== END 2024-04-07 11:47 | disposition home or self-care (01) ==
PROVIDERS: Emergency Provider Physician Assistant; PCP Clinical Nurse Specialist
DX: S39.012A Strain of muscle, fascia and tendon of lower back, initial encounter (principal); M54.16 Radiculopathy, lumbar region; F17.210 Nicotine dependence, cigarettes, uncomplicated; Z87.442 Personal history of urinary calculi; Z90.49 Acquired absence of other specified parts of digestive tract; X58.XXXA Exposure to other specified factors, initial encounter
CPT/HCPCS: 96372; 99284; A9270; J1885; J2919

== ENCOUNTER 2024-04-10 18:40 | Emergency (ER) | payer MEDICARE, SELFPAY ==
--- NOTE | ~2024-04-10 | CT_ITS ---
CT lumbar spine wo con Ordering provider: Saadia Zarco PA-C History: 63 years Female with . low back pain . Comparison: None. Technique: CT lumbar spine without contrast. Automated exposure control and iterative reconstruction technique were employed. The dose-length product was 194.15 mGy-cm. FINDINGS: VERTEBRAE: Normal height and alignment. No subluxation or visible acute fracture. DISC SPACES: Narrowing of the disc L1-L2, L2-L3, L3-L4 and L4-L5. Widening of the facet joint disease on the right side at the level of L3-L4 and L4-5. Bony fragment is seen near to the right facet joint posteriorly at the level of L4-L5 which may be ol d fracture. Evaluation for tenderness in the area is advised. Small air bubbles is seen at the level of L4-L5 anteriorly and to the left. Follow-up and clinical co rrelation advised. T12-L1: No stenosis. L1-L2: No stenosis. L2-L3: No stenosis. L3-L4: No stenosis. Mild diffuse disc bulge. L4-L5: No stenosis. Diffuse disc bulge with bilateral narrowing of the foramina and compression. L5-S1: No stenosis. Mild diffuse disc bulge. PARASPINOUS SOFT TISSUES: Mild atheromatous disease of the abdominal aorta. IMPRESSION: No acute osseous abnormality. Multilevel degenerative disc disease. Reviewed, dictated and finalized at location A.
[2024-04-10 19:15] VITALS: BP 137/86; PULSE 107; RESP 20; TEMP 36.5; O2SAT 97
[2024-04-10] MEDS: KETOROLAC 30 MG/ML VIAL (*BKC) IM (21:27)
[2024-04-10 22:21] VITALS: BP 132/76; PULSE 93; RESP 15; TEMP 36.7; O2SAT 99
--- NOTE | 2024-04-10 22:23 | ED.GENADULT ---
HPI - General Adult General Chief complaint: Unspecified Stated complaint: sciatica pain Time Seen by Provider: 04/10/24 20:26 Source: patient Mode of arrival: ambulatory Limitations: no limitations History of Present Illness HPI narrative: This is a 63-year-old female that presents to the emergency department for low back pain. Reports right-sided low back pain radiating down the right leg. She was seen in the ER for this a couple of days prior. Sent with a muscle relaxer. Has been taking prescribed medication with little relief. No recent injury or trauma. Denies saddle anesthesia, or bowel/ bladder incontinence. Related Data Home Medications Medication Instructions Recorded Confirmed albuterol sulfate 90 mcg/actuation 1 puff inhalation Q4H PRN 12/03/21 02/23/24 aerosol inhaler cholecalciferol (vitamin D3) 50 50 mcg PO DAILY 12/03/21 02/23/24 mcg (2,000 unit) tablet acetaminophen 325 mg tablet 325 mg PO Q4-6H PRN 12/11/23 02/23/24 (Tylenol) gabapentin 100 mg capsule 100 mg PO BID 12/11/23 02/23/24 gabapentin 300 mg capsule 300 mg PO QHS 12/11/23 02/23/24 hydrocodone 5 mg-acetaminophen 325 1 tablet PO Q8H PRN 01/20/24 02/23/24 mg tablet ibuprofen 600 mg tablet 600 mg PO TID 01/20/24 02/23/24 Allergies Allergy/AdvReac Type Severity Reaction Status Date / Time morphine Allergy Intermediate Hives Verified 04/10/24 19:19 tramadol Allergy Intermediate Hives Verified 04/10/24 19:19 Review of Systems Review of Systems: CONSTITUTIONAL: Denies fever MUSCULOSKELETAL: Reports back pain, joint pain, and myalgia. NEUROLOGIC: Denies numbness, or weakness. All systems reviewed & are unremarkable except as noted in HPI and below PMFSH Past Medical History Medical History Abnormal MRI of abdomen Anxiety disorder, unspecified Diffuse abdominal pain History of kidney stones Intracranial aneurysm Left hand pain LLQ abdominal pain Muscle contraction headache Pelvic pain in female Right ankle pain RUQ abdominal mass Sore throat Vaginal discharge Surgical History Surgical History H/O section H/O hernia repair 12/13/21 Left lower quadrant incisional hernia and repair of left femoral and obturator hernia repair. Dr. Salazar Walker, [facility] H/O hernia repair 04/21/23 Open left sided trocar incisional hernia repair, no mesh. Dr. Salazar Walker, [facility] Hx of cholecystectomy Hx of hernia repair 03/31/23 Robotic assisted right Spigelian hernia repair. Dr. Salazar Walker, [facility] Family History Family History Father Cancer Mother Dementia Sibling Dementia Mother Family history of Alzheimer's disease Sibling Family history of dementia Mother Patient's mother is , Onset Age: 62 Family history of Alzheimer's disease Father Patient's father is , Onset Age: 64 Other Family history of malignant neoplasm of ovary Social History Social History Smoking packs per day: 1 Smoking cigarettes per day: 20.0 Smoking status: Current every day smoker Tobacco type: cigarettes Alcohol intake: current Alcohol use details: beer socially Substance use: never Living arrangements: with family Exam Narrative: GENERAL: Well-appearing, well-nourished, and in no acute distress. HEAD: Normocephalic, atraumatic. EYES: EOMI. CHEST: Clear to auscultation. No respiratory distress. No wheezes rales or rhonchi HEART: Regular rate and rhythm. No murmur heard. Normal peripheral pulses. BACK: No midline spinal tenderness EXTREMITIES: Normal range of motion. No edema. Strength equal in bilateral lower extremities (5/5) SKIN: Warm, dry, no rash. NEURO: No focal deficits. Alert and orie
== END 2024-04-10 22:39 | disposition home or self-care (01) ==
PROVIDERS: Emergency Provider Physician Assistant; PCP Clinical Nurse Specialist
DX: M54.41 Lumbago with sciatica, right side (principal); F17.210 Nicotine dependence, cigarettes, uncomplicated; Z87.442 Personal history of urinary calculi; Z90.49 Acquired absence of other specified parts of digestive tract; M51.369 Other intervertebral disc degeneration, lumbar region without mention of lumbar back pain or lower extremity pain
CPT/HCPCS: 72131; 96372; 99284; J1885

== ENCOUNTER 2024-04-15 00:19 | Emergency (ER) | payer MEDICARE, SELFPAY ==
[2024-04-15 00:23] VITALS: BP 135/96; PULSE 96; RESP 20; TEMP 36.2; O2SAT 100
--- NOTE | 2024-04-15 01:20 | ED.BACK ---
HPI - Back Pain/Injury General Chief Complaint: Back Pain/Injury Stated Complaint: sciatic nerve pain Time Seen by Provider: 04/15/24 00:42 History of Present Illness HPI Narrative: 63-year-old female with a history of right-sided lumbar radiculopathy and COPD presents to the emergency department for sciatic nerve pain. Patient states the pain is been going on for several weeks but is significantly worsened today. She states the pain is located from her right low back and buttock and radiates down the medial aspect of her leg into her foot. She states it is a sharp pain that is worse with movement. She denies saddle anesthesia, injury or trauma, bowel or bladder incontinence or urinary retention, fever, IVDU, history of cancer. this is the patient's 3rd visit in our ED since 04/07/2024 for the same presentation. She had a CT lumbar performed on 04/10/2024 which revealed no acute osseous abnormality, there is multilevel degenerative disc disease. She has been trialed on gabapentin, Flexeril, lidocaine patches, Toradol and steroids without reported improvement. States she went to [place] emergency department yesterday and they discontinued the steroid she was started on at our ED on the . She was then prescribed Flexeril and [place] by [place]. States she has been taking these without improvement so she came back to our emergency department. She notes that she is scheduled to see pain management tomorrow. Related Data Home Medications Medication Instructions Recorded Confirmed albuterol sulfate 90 mcg/actuation 1 puff inhalation Q4H PRN 12/03/21 04/14/24 aerosol inhaler cholecalciferol (vitamin D3) 50 50 mcg PO DAILY 12/03/21 04/14/24 mcg (2,000 unit) tablet acetaminophen 325 mg tablet 325 mg PO Q4-6H PRN 12/11/23 04/14/24 (Tylenol) gabapentin 100 mg capsule 100 mg PO BID 12/11/23 04/14/24 gabapentin 300 mg capsule 300 mg PO QHS 12/11/23 04/14/24 hydrocodone 5 mg-acetaminophen 325 1 tablet PO Q8H PRN 01/20/24 04/14/24 mg tablet ibuprofen 600 mg tablet 600 mg PO TID 01/20/24 04/14/24 Allergies Allergy/AdvReac Type Severity Reaction Status Date / Time morphine Allergy Intermediate Hives Verified 04/15/24 00:20 tramadol Allergy Intermediate Hives Verified 04/15/24 00:20 Review of Systems Review of Systems: All systems reviewed & are unremarkable except as noted in HPI and below PMFSH Past Medical History Medical History Abnormal MRI of abdomen Anxiety disorder, unspecified Diffuse abdominal pain History of kidney stones Intracranial aneurysm Left hand pain LLQ abdominal pain Muscle contraction headache Pelvic pain in female Right ankle pain RUQ abdominal mass Sore throat Vaginal discharge Surgical History Surgical History H/O section H/O hernia repair 12/13/21 Left lower quadrant incisional hernia and repair of left femoral and obturator hernia repair. Dr. Salazar Walker, [facility] H/O hernia repair 04/21/23 Open left sided trocar incisional hernia repair, no mesh. Dr. Salazar Walker [facility] Hx of cholecystectomy Hx of hernia repair 03/31/23 Robotic assisted right Spigelian hernia repair. Dr. Salazar Walker, [facility] Family History Family History Father Cancer Mother Dementia Sibling Dementia Mother Family history of Alzheimer's disease Sibling Family history of dementia Mother Patient's mother is , Onset Age: 62 Family history of Alzheimer's disease Father Patient's father is , Onset Age: 64 Other Family history of malignant neoplasm of ovary Social History Social History Smoking packs per day: 1 Smoking cigarettes per day: 20.0 Smoking status: Current every day smoker Tobacco type: cigarettes Alcohol intake: current Alcohol use details: beer socially Substance use: never Living arrangements: with family Exam Narrative: GENERAL: Well-appearing, well-nourished, and in no acute distress. HEAD: Normocephalic, atraumatic. EYES: EOMI. ENT: Nares clear, no rhinorrhea or epistaxis. Mucous membranes moist. NECK: Supple. CHEST: Clear to auscultation. No respiratory distress. HEART: Regular rate and rhythm. ABDOMEN: Soft, nontender, nondistended, normal active bowel sounds. EXTREMITIES: Dorsiflexion and plantar flexion 5/5 bilaterally. Decreased EHL strength to the right. Sensation intact throughout. No saddle anesthesia. Positive right straight leg raise. Difficulty to assess remainder of right leg range of motion secondary to pain. SKIN: Warm, dry, no rash. NEURO: No focal deficits. Alert and oriented x3 Course Vital Signs Vital signs: Vital Signs Temperature 97.2 F L 04/15/24 00:23 Pulse Rate 96 04/15/24 00:23 Respiratory Rate 20 04/15/24 00:23 Blood Pressure 135/96 H 04/15/24 00:23 Pulse Oximetry 100 04/15/24 00:23 Oxygen Delivery Room Air 04/15/24 00:23 Temperature 97.2 F L 04/15/24 00:23 Pulse Rate 96 04/15/24 00:23 Respiratory Rate 20 04/15/24 00:23 Blood Pressure 135/96 H 04/15/24 00:23 Pulse Oximetry 100 04/15/24 00:23 Oxygen Delivery Room Air 04/15/24 00:23 MDM - Back Pain/Injury MDM Narrative Medical decision making narrative: 63-year-old female with history of sciatica presents to the emergency department for acute on chronic sciatica pain. Patient has some seen multiple times in our emergency department over the past week and has been seen at outside hospitals as well. Triage vitals are stable. She is afebrile nontoxic appearing. Exam is significant for decrease EHL strength to the right and positive right straight leg raise. She is otherwise neurovascularly intact without signs of cord compression or cauda equina. will provide pain medications and re-evaluate. Patient received Decadron, Toradol, gabapentin and lidocaine patch. Upon re-evaluation she states that the medications have not helped her, however she is resting comfortably in exam bed. She is ambulatory in the ED. I discussed goals of today's visit In the importance for her to attend her pain management appointment tomorrow. Will trial her on steroids given she only had taken 3 days of the course when she was prescribed steroids on the . Will also provide lidocaine patches, gabapentin Tylenol. I discussed strict ED return precautions. She is agreeable to plan verbalized understanding. Discharged in stable condition. Lab Data Labs: Lab Results 04/15/24 Range/Units 01:46 Urine Color Yellow (Yellow) Urine Appearance Clear (Clear) Urine pH 5.5 (5.0-9.0) Ur Specific [place] 1.020 (1.001-1.035) Urine Protein Negative (Negative) mg/dL Urine Glucose (UA) Negative (Negative) mg/dL Urine Ketones Negative (Negative) mg/dL Ur Blood (Man) Negative (Negative) Urine Nitrate Negative (Negative) Urine Bilirubin Negative (Negative) Urine Urobilinogen 0.2 (<2.0) mg/dL Leukocyte Esterase Rfl Negative (Negative) TERI/UL Discharge Plan Discharge Clinical Impression: Sciatica, right side Patient Disposition: Home, Self-Care Condition: Stable Instructions: Antibiotic Form, Sciatica (ED), Lumbar Radiculopathy (ED), Lower Back Exercises (ED) Additional Instructions: Your evaluated in the emergency department for sciatica. I sent medications to the pharmacy, please take these as directed. Make sure to go to her pain management appointment tomorrow. Return to the emergency department if you develop a fever, numbness in your groin, you lose control of your bowel or bladder, or other concerning symptoms. Prescriptions: New lidocaine 5 % adhesive patch,medicated 1 patch topical DAILY Qty: 15 0RF Rx Instructions: leave on most painful area for up to 12 hrs. do not use more than 1 patch in a 24-hour period. gabapentin 300 mg capsule 300 mg PO BID Qty: 30 0RF methylprednisolone [Medrol (Reese)] 4 mg tablets,dose pack See Rx Instructions PO .COMPLEX Qty: 21 0RF Rx Instructions: orally per package directions acetaminophen 500 mg capsule 1,000 mg PO Q6H PRN (Reason: pain) Qty: 30 0RF No Action albuterol sulfate 90 mcg/actuation HFA aerosol inhaler 1 puff inhalation Q4H PRN cholecalciferol (vitamin D3) 50 mcg (2,000 unit) tablet 50 mcg PO DAILY methocarbamol 750 mg tablet 750 mg PO Q8H Qty: 90 0RF diphenhydramine HCl 2 % gel 1 applic topical TID PRN (Reason: skin irritation) Qty: 103 0RF varenicline 0.5 mg (11)- 1 mg (42) tablets,dose pack See Rx Instructions PO PER PKG DIR Qty: 53 0RF Rx Instructions: PO PER PKG DIR gabapentin 300 mg capsule 300 mg PO QHS acetaminophen [Tylenol] 325 mg tablet 325 mg PO Q4-6H PRN gabapentin 100 mg capsule 100 mg PO BID Rx Instructions: AM and afternoon doses ibuprofen 600 mg tablet 600 mg PO TID hydrocodone-acetaminophen 5-325 mg tablet 1 tablet PO Q8H PRN lidocaine 5 % adhesive patch,medicated 1 patch topical DAILY Qty: 15 0RF Rx Instructions: leave on most painful area for up to 12 hrs cyclobenzaprine 5 mg tablet 5 mg PO TID PRN (Reason: muscle spasm) Qty: 15 0RF methylprednisolone 4 mg tablets,dose pack See Rx Instructions .ROUTE .COMPLEX Qty: 21 0RF Rx Instructions: orally per package directions diclofenac sodium 1 % gel 2 g topical QID Qty: 100 2RF Rx Instructions: apply to hand Follow-up/Referrals: Catherine Kimbrough, [employer]-C [Primary Care Provider] - Cira Gonzales MD [Physician] - 1 Day
[2024-04-15] MEDS: KETOROLAC 30 MG/ML VIAL (*BKC) IV PUSH (01:43)
[2024-04-15] MEDS: dexAMETHasone SOD PHOS INJ 10 MG/ML 1 ML VIAL IV PUSH (01:43)
[2024-04-15] MEDS: GABAPENTIN 300 MG CAPSULE PO (01:44)
[2024-04-15] MEDS: LIDOCAINE 5% PATCH 1 PATCH TRANSDERM (01:45)
[2024-04-15 01:53] LABS: Add Urine Microscopic? NO; Appearance Urine Clear (Clear); Bilirubin Urine Negative (Negative); Blood Urine Negative (Negative); Color Urine Yellow (Yellow); Glucose Urine UA Negative (Negative); Ketones Urine Negative (Negative); Leukocyte Esterase Ur Negative LEU/UL (Negative); Nitrate Urine Negative (Negative); Protein Urine Negative (Negative); Urobilinogen Urine 0.2 mg/dL (<2.0); pH Urine 5.5 (5.0-9.0)
--- NOTE | 2024-04-15 02:59 | PC.NURSE ---
Attempted to call family for patient without answer. Patient denies having a way home.
[2024-04-15 03:48] VITALS: BP 132/80; PULSE 82; RESP 15; O2SAT 100
== END 2024-04-15 03:49 | disposition home or self-care (01) ==
PROVIDERS: Emergency Provider Physician Assistant; PCP Clinical Nurse Specialist
DX: M54.41 Lumbago with sciatica, right side (principal); F17.210 Nicotine dependence, cigarettes, uncomplicated; Z87.442 Personal history of urinary calculi; Z90.49 Acquired absence of other specified parts of digestive tract; Z79.899 Other long term (current) drug therapy
CPT/HCPCS: 81003; 96374; 96375; 99284; A9270; J1100; J1885

== ENCOUNTER 2024-04-19 10:47 | Emergency (ER) | payer MEDICARE, SELFPAY ==
[2024-04-19 10:50] VITALS: BP 126/96; PULSE 80; RESP 16; TEMP 36.6; O2SAT 100
[2024-04-19 12:55] VITALS: BP 161/72; PULSE 82; RESP 15; O2SAT 98
[2024-04-19] MEDS: HYDROcodone/acetaminophen (*CRX) 5-325 MG TABLET 1 TAB PO (13:07)
--- NOTE | 2024-04-19 13:07 | ED_ITS ---
HPI - Extremity Problem General Chief complaint: Extremity Problem,Nontraumatic <Cristina Platt APRN - Last Filed: 04/19/24 13:09> Stated complaint: sciatica, right leg numbness <Cristina Platt APRN - Last Filed: 04/19 13:09> Time Seen by Provider: 04/19/24 12:50 <Cristina Platt APRN - Last Filed: 04/19/24 13:09> Patient is a 63-year-old female presents to the ER with right sided lower extremity pain that starts in her right hip. She reports that she has a history of sciatica and was seen at [facility] in the ER yesterday. Patient reports they gave her 2 shots and sent her home. She reports she called her doctor's office this morning, spoke to a nurse, who told her she would need to come to the ER and get an MRI. Patient reports she is supposed to seen pain management tomorrow for injections. She reports her pain is so severe that she could not sleep last night. Patient reports she recently had CT scans performed here. She reports her lower R extremity is tingling and she has decreased movement. <Cristina Platt APRN - Last Filed: 04/19/24 13:09> Patient is a 63-year-old female presents to the ER with right sided lower extremity pain that starts in her right hip. She reports that she has a history of sciatica and was seen at [facility] in the ER yesterday. Patient reports they gave her 2 shots and sent her home. She reports she called her doctor's office this morning, spoke to a nurse, who told her she would need to come to the ER and get an MRI. Patient reports she is supposed to seen pain management tomorrow for injections. She reports her pain is so severe that she could not sleep last night. Patient reports she recently had CT scans performed here. <Dori Ma MD - Last Filed: 04/19/24 19:28> History of Present Illness HPI Narrative: 63-year-old female presenting with sciatic pain. States that for the last 2 weeks she has had severe lower back pain radiating down her right leg and foot. She has been seen numerous times last being at [facility]. States that she has been on Robaxin, Tylenol, [place] without relief. She has an appointment with pain management tomorrow morning. Her pain was so severe she could not walk this morning so she called her PCP who told her to come to the ER. no saddle anesthesia, bladder or bowel incontinence. No fevers. No focal weakness. Complains of tingling down her right leg. <Dori Ma MD - Last Filed: 04/19/24 19:28> Related Data Home medications: Home Medications Medication Instructions Recorded Confirmed albuterol sulfate 90 mcg/actuation 1 puff inhalation Q4H PRN 12/03/21 04/14/24 aerosol inhaler cholecalciferol (vitamin D3) 50 50 mcg PO DAILY 12/03/21 04/14/24 mcg (2,000 unit) tablet acetaminophen 325 mg tablet 325 mg PO Q4-6H PRN 12/11/23 04/14/24 (Tylenol) gabapentin 100 mg capsule 100 mg PO BID 12/11/23 04/14/24 gabapentin 300 mg capsule 300 mg PO QHS 12/11/23 04/14/24 hydrocodone 5 mg-acetaminophen 325 1 tablet PO Q8H PRN 01/20/24 04/14/24 mg tablet ibuprofen 600 mg tablet 600 mg PO TID 01/20/24 04/14/24 <Cristina Platt APRN - Last Filed: 04/19/24 13:09> Allergies/Adverse reactions: Allergies Allergy/AdvReac Type Severity Reaction Status Date / Time morphine Allergy Intermediate Hives Verified 04/19/24 10:52 tramadol Allergy Intermediate Hives Verified 04/19/24 10:52 <Cristina Platt, ELEMENTARY SCHOOL BAND DIRECTOR - Last Filed: 04/19/24 13:09> Review of Systems Review of Systems: All systems reviewed & are unremarkable except as noted in HPI and below <Dori Ma MD - Last Filed: 04/19/24 19:28> PMFSH Past Medical History Medical History: Medical History Abnormal MRI of abdomen Anxiety disorder, unspecified Diffuse abdominal pain History of kidney stones Intracranial aneurysm Left hand pain LLQ abdominal pain Muscle contraction headache Pelvic pain in female Right ankle pain RUQ abdominal mass Sore throat Vaginal discharge <Cristina Platt, ELEMENTARY SCHOOL BAND DIRECTOR - Last Filed: 04/19/24 13:09> Surgical History Surgical History: Surgical History H/O section H/O hernia repair 12/13/21 Left lower quadrant incisional hernia and repair of left femoral and obturator hernia repair. Dr. Salazar Walker, [facility] H/O hernia repair 04/21/23 Open left sided trocar incisional hernia repair, no mesh. Dr. Salazar Walker, [facility] Hx of cholecystectomy Hx of hernia repair 03/31/23 Robotic assisted right Spigelian hernia repair. Dr. Salazar Walker, [facility] <Cristina Platt, ELEMENTARY SCHOOL BAND DIRECTOR - Last Filed: 04/19/24 13:09> Family History Family History: Family History Father Cancer Mother Dementia Sibling Dementia Mother Family history of Alzheimer's disease Sibling Family history of dementia Mother Patient's mother is , Onset Age: 62 Family history of Alzheimer's disease Father Patient's father is , Onset Age: 64 Other Family history of malignant neoplasm of ovary <Cristina Platt, ELEMENTARY SCHOOL BAND DIRECTOR - Last Filed: 04/19/24 13:09> Social History Social History: Social History Smoking packs per day: 1 Smoking cigarettes per day: 20.0 Smoking status: Current every day smoker Tobacco type: cigarettes Alcohol intake: current Alcohol use details: beer socially Substance use: never Living arrangements: with family <Cristina Platt, ELEMENTARY SCHOOL BAND DIRECTOR - Last Filed: 04/19/24 13:09> Exam Narrative: GENERAL: Nontoxic, pleasant cooperative, intermittently tearful secondary to her situation HEAD: Normocephalic, atraumatic. EYES: PERRLA and EOMI. ENT: grossly unremarkable NECK: Supple. CHEST: Clear to auscultation. No respiratory distress. HEART: Regular rate and rhythm EXTREMITIES: Normal range of motion. No edema. SKIN: Warm, dry, no rash. NEURO: No focal deficits. Alert and oriented x3. PSYCH: Normal mood and affect. <Dori Ma MD - Last Filed: 04/19/24 19:28> Course Vital Signs Vital signs: Vital Signs Temperature 97.9 F 04/19/24 10:50 Pulse Rate 80 04/19/24 10:50 Respiratory Rate 16 04/19/24 10:50 Blood Pressure 126/96 H 04/19/24 10:50 Pulse Oximetry 100 04/19/24 10:50 Oxygen Delivery Room Air 04/19/24 10:50 Temperature 97.9 F 04/19/24 10:50 Pulse Rate 89 04/19/24 16:57 Respiratory Rate 16 04/19/24 16:57 Blood Pressure 131/93 H 04/19/24 16:57 Pulse Oximetry 99 04/19/24 16:57 Oxygen Delivery Room Air 04/19/24 10:50 <Cristina Platt APRN - Last Filed: 04/19/24 13:09> Vital Signs Temperature 97.9 F 04/19/24 10:50 Pulse Rate 80 04/19/24 10:50 Respiratory Rate 16 04/19/24 10:50 Blood Pressure 126/96 H 04/19/24 10:50 Pulse Oximetry 100 04/19/24 10:50 Oxygen Delivery Room Air 04/19/24 10:50 Temperature 97.9 F 04/19/24 10:50 Pulse Rate 89 04/19/24 16:57 Respiratory Rate 16 04/19/24 16:57 Blood Pressure 131/93 H 04/19/24 16:57 Pulse Oximetry 99 04/19/24 16:57 Oxygen Delivery Room Air 04/19/24 10:50 <Dori Ma MD - Last Filed: 04/19/24 19:28> MDM - Extremity (Nontraumatic) MDM Narrative Medical decision making narrative: 63-year-old female presenting with right lower back pain that goes down the her right foot. Vitals within normal limits. Exam remarkable for the above. She is neurologically intact. According to chart review she has been seen numerous times in the last couple of weeks for the same complaint. She tells me that she has an appointment tomorrow morning with a pain management clinic. States that she just needs something to help her get through until tomorrow. She received IM Dilaudid with significant improvement in her pain. She also received some IV steroids and Toradol. She feels comfortable going home. Will send in for 5 Percocet for severe pain. Advised she continue using Tylenol. Appropriate return precautions given. Discharged in stable condition. <Dori Ma MD - Last Filed: 04/19/24 19:28> Differential Diagnosis Differential diagnosis: Likely other ( Low back pain, radiculopathy, sciatica) <Dori Ma MD - Last Filed: 04/19/24 19:28> Medical Records Attestation: I reviewed the patient's medical records. <Dori Ma MD - Last Filed: 04/19/24 19:28> Critical Care Time Critical Care Time Critical Care Time: No <Dori Ma MD - Last Filed: 04/19/24 19:28> Discharge Plan Discharge Clinical Impression: Low back pain radiating to right leg <Cristina Platt APRN - Last Filed: 04/19/24 13:09> Patient Disposition: Home, Self-Care <Cristina Platt APRN - Last Filed: 04/19/24 13:09> Condition: Stable <Cristina Platt APRN - Last Filed: 04/19/24 13:09> Instructions: Antibiotic Form, Lumbar Radiculopathy (ED) <Cristina Platt APRN - Last Filed: 04/19/24 13:09> Additional Instructions: Please make sure to go to your pain management appointment tomorrow. You may use the narcotic pain medications for severe pain. If your symptoms worsen or other concerning symptoms arise, please return to the ER. <Cristina Platt APRN - Last Filed: 04/19/24 13:09> Prescriptions: New oxycodone-acetaminophen [Percocet] 5-325 mg tablet 1 tablet PO Q6H PRN (Reason: pain) Qty: 5 0RF No Action albuterol sulfate 90 mcg/actuation HFA aerosol inhaler 1 puff inhalation Q4H PRN cholecalciferol (vitamin D3) 50 mcg (2,000 unit) tablet 50 mcg PO DAILY methocarbamol 750 mg tablet 750 mg PO Q8H Qty: 90 0RF diphenhydramine HCl 2 % gel 1 applic topical TID PRN (Reason: skin irritation) Qty: 103 0RF varenicline 0.5 mg (11)- 1 mg (42) tablets,dose pack See Rx Instructions PO PER PKG DIR Qty: 53 0RF Rx Instructions: PO PER PKG DIR gabapentin 300 mg capsule 300 mg PO QHS acetaminophen [Tylenol] 325 mg tablet 325 mg PO Q4-6H PRN gabapentin 100 mg capsule 100 mg PO BID Rx Instructions: AM and afternoon doses ibuprofen 600 mg tablet 600 mg PO TID hydrocodone-acetaminophen 5-325 mg tablet 1 tablet PO Q8H PRN lidocaine 5 % adhesive patch,medicated 1 patch topical DAILY Qty: 15 0RF Rx Instructions: leave on most painful area for up to 12 hrs cyclobenzaprine 5 mg tablet 5 mg PO TID PRN (Reason: muscle spasm) Qty: 15 0RF methylprednisolone 4 mg tablets,dose pack See Rx Instructions .ROUTE .COMPLEX Qty: 21 0RF Rx Instructions: orally per package directions lidocaine 5 % adhesive patch,medicated 1 patch topical DAILY Qty: 15 0RF Rx Instructions: leave on most painful area for up to 12 hrs. do not use more than 1 patch in a 24-hour period. gabapentin 300 mg capsule 300 mg PO BID Qty: 30 0RF methylprednisolone [Medrol (Reese)] 4 mg tablets,dose pack See Rx Instructions PO .COMPLEX Qty: 21 0RF Rx Instructions: orally per package directions acetaminophen 500 mg capsule 1,000 mg PO Q6H PRN (Reason: pain) Qty: 30 0RF diclofenac sodium 1 % gel 2 g topical QID Qty: 100 2RF Rx Instructions: apply to hand <Cristina Platt APRN - Last Filed: 04/19/24 13:09> Follow-up/Referrals: Atilio Estrada, DO [Primary Care Provider] - <Cristina Platt APRN - Last Filed: 04/19/24 13:09> Stand Alone Forms: Work/School Release IP <Cristina Platt APRN - Last Filed: 04/19/24 13:09>
[2024-04-19] MEDS: methylPREDNISolone SOD SUCC 125 MG VIAL IM (13:11)
[2024-04-19] MEDS: KETOROLAC (*BKC) 60 MG/2 ML VIAL IM (13:12)
[2024-04-19] MEDS: HYDROmorphone HCL INJ (*CRX) 1 MG/ML SYR IM (14:57)
[2024-04-19 16:57] VITALS: BP 131/93; PULSE 89; RESP 16; O2SAT 99
== END 2024-04-19 16:57 | disposition home or self-care (01) ==
PROVIDERS: Emergency Provider Emergency Medicine; PCP Internal Medicine
DX: M54.50 Low back pain, unspecified (principal); M79.604 Pain in right leg; F17.210 Nicotine dependence, cigarettes, uncomplicated; Z87.442 Personal history of urinary calculi; Z90.49 Acquired absence of other specified parts of digestive tract; Z79.899 Other long term (current) drug therapy
CPT/HCPCS: 96372; 99284; A9270; J1171; J1885; J2919

== ENCOUNTER 2024-08-27 13:27 | Inpatient (IN) | payer MEDICARE, SELFPAY ==
--- NOTE | ~2024-08-27 | CT_ITS ---
Clinical Indication: Chest pain, shortness of breath CT Scan of the Chest with Contrast: Technique: Contiguous sections were acquired throughout the chest after intravenous administration of 100 cc of Omnipaque 350. Dose reduction technique was used on this scan by utilizing automated expos ure control and iterative reconstruction technique. The dose-length product (DLP) was 129.82 mGy-cm. Findings: There is no evidence of any significant mediastinal, hilar or axillary lymphadenopathy. There is no f illing defect in the pulmonary arterial tree to suggest pulmonary embolus. There is no evidence of ao rtic dissection or aneurysm. There is no evidence of pleural or pericardial effusion. There is consolidation at the anterior, inferior right upper lobe, compatible with pneumonia. There i s minimal patchy airspace disease at the left upper lobe peripherally. Images through the upper abdomen reveal no abnormalities. Impression: No evidence of pulmonary embolus, aortic dissection, or aortic aneurysm. Right upper lobe pneumonia with minimal involvement in the left upper lobe. Reviewed, dictated and finalized at [facility]. Impression: No evidence of pulmonary embolus, aortic dissection, or aortic aneurysm. Right upper lobe pneumonia with minimal involvement in the left upper lobe.
--- NOTE | ~2024-08-27 | XR_ITS ---
XR chest 2V Ordering provider: Duane Dunn MD History: 64 years Female with . cough/SHOB . Comparison: May 12, 2023 FINDINGS: MEDIASTINUM: The cardiac silhouette is not enlarged. LUNGS: No effusions or pneumothorax. Increased opacification in the right hilar and perihilar areas s uggestive of pneumonia. Follow-up to resolution is advised. OTHER: No free air under the diaphragm. IMPRESSION: Right upper lobe pneumonia. Follow-up to resolution is advised. Reviewed, dictated and finalized at location [facility]
--- OUTSIDE RECORDS SUMMARY | 2024-08-27 13:30 | XMS_ITS | Clinical Summary ---
Author Organization [facility] Address [address] [place] [address] Care Team Providers Care Test Driller Name Role Phone Salazar Walker MD Unavailable [phone] Evens Birch MD Unavailable [phone] Atilio Estrada DO Primary Care Provider [phone] Allergies Active Allergy Reactions Criticality Noted Date Comments Morphine Rash Medium 06/09/2012 Rash Oxycodone Itching Low 04/20/2023 Prednisone Hives Medium 07/26/2020 Tramadol Hives Medium 03/11/2021 Medications VITAMIN D3, CHOLECALCIFEROL, 2000 UNIT Tab tabletIndication s:Vitamin D deficiency TAKE 1 TABLET BY MOUTH DAILY 30 tablet 1 2 Active acyclovir 5 % ointmentIndicati ons:Rash 15APP TOPICALLY AA 6 TIMES PER DAY PRF FEVER BLISTER 15 g 2 Active albuterol sulfate HFA 108 (90 Base) MCG/ACT inhalerIndicatio ns:Bronchitis INHALE 1 PUFF BY MOUTH EVERY 12 HOURS NEEDED FOR SHORTNESS OF BREATH OR WHEEZING 8.5 g 5 3 Active montelukast (SINGULAIR) 10 MG tabletIndication s:Sinus congestion Take 1 tablet (10 mg total) by mouth daily. 90 tablet 3 Active amoxicillin (AMOXIL) 500 MG tablet Take 500 mg by mouth 3 (three) times daily. Active benzonatate (TESSALON) 100 MG capsuleIndicatio ns:Cough, unspecified type Take 1 capsule (100 mg total) by mouth 3 (three) times daily as needed for Cough. 30 capsule 12/19/202 3 Active gabapentin (NEURONTIN) 100 MG capsule Take 1 capsule (100 mg total) by mouth 2 (two) times a day. 60 capsule 4 Active methocarbamol (ROBAXIN-750) 750 MG Tab Take 1 tablet (750 mg total) by mouth every 8 (eight) hours as needed. 30 tablet 4 Active Active Problems Problem Noted Date Diagnosed Date Dermatitis 06/09/2023 Injury to fingernail of left hand 06/09/2023 Aortic atherosclerosis 11/26/2022 Overview (11/26/2022): Noted on CT August 2022 Vitamin D deficiency 08/20/2021 Chiari I malformation ([facility]) 06/05/20 Overview (06/05/2021): Noted on MRI 08/20/20 Stage 3a chronic kidney disease 06/05/2021 Cerebral aneurysm ([facility]) 06/05/2021 Overview (06/05/2021): Noted by Neurology 03/11/21 Alopecia 10/08/2020 Epigastric pain 03/30/2012 Resolved Problems Problem Noted Date Diagnosed Date Resolved Date Colon cancer screening 08/20/202108/26 Health maintenance examination 06/04/2020 06/11/2020 Immunizations Name Administration Dates Next Due Fluzone 6 Months+ Quad (0.5 mL Prefilled Syringe) 02/07/2020 Hepatitis A (Generic) 12/10/2016 Hepatitis A (Havrix 14[address].U) 12/10/2016 Influenza (Generic) 02/19/2021,06/22/2017 Influenza Adult (Generic) 04/23/2022,03/25/2016, 03/13/2013 MODERNA COVID-19 (12+) MRNA, LNP-S, PF, 100 MCG/ 0.5 ML DOSE 09/01/2020,08/04/2020 Pneumococcal (Pneumovax 23) 12/10/2016 Shingrix 02/19/2021 Tdap (Boostrix) 12/10/2016 Social History Tobacco Use Types Packs/Day Years Used Date Smoking Tobacco: Every Day Smokeless Tobacco: Never Tobacco Cessation:Ready to Q uit: No; Counseling Given: Yes Alcohol Use Standard Drinks/Week Comments Yes 0 (1 standard drink = 0.6 oz pur e alcohol) PHQ-2 Answer Date Recorded Patient Health Questionnaire-2 Score 0 11/26/2022 Comments Unknown Sex and Gender Information Value Date Recorded Sex Assigned at Not on file Legal Sex Female 9:15 PM CDT Gender Identity Not on file Sexual Orientation Not on file Last Filed Vital Signs Vital Sign Reading Time Taken Comments Blood Pressure 149/107 12/05/2023 3:38 PM CDT Pulse 94 12/05/2023 3:38 PM CDT Temperature 36.5 C (97.7 F) 12/05/2023 3:38 PM CDT Respiratory Rate 16 12/05/2023 3:38 PM CDT Oxygen Saturation 99% 12/05/2023 3:38 PM CDT Inhaled Oxygen Concentration - - Weight 46.3 kg (102 lb) 12/05/2023 3:38 PM CDT Height 157.5 cm (5' 2 ) 12/05/2023 3:38 PM CDT Body Mass Index 18.66 12/05/2023 3:38 PM CDT Plan of Treatment Health Maintenance Due Date Last Done Comments ASCVD Statin 1961 Cervical Cancer Screening Pap Smear (Age 30 to 64) Every 3 Years 1961 Colorectal Cancer Screening Colonoscopy (10 Years) 1961 Hepatitis C 1979 Cervical Cancer Screening Pap with HPV Testing (Age 30 to 64) Every 5 Years 1991 Cervical Cancer Screening with HPV 1991 Pneumococcal Vaccine: Pediatrics (0 to 5 Years) and At-Risk Patients (6 to 64 Years) (2 of 2 - PCV) 12/10/2017 12/10/2016 Zoster Vaccines (2 of 2) 04/16/2021 02/19/2021 Mammogram Screening 07/02/2023 07/02/2021 ASCVD LDL 08/26/2023 08/25/2022 Annual Physical 11/27/2023 11/26/2022, 03/0 06/2021, 06/04/2020 COVID-19 Vaccine ( season) 2024 04/29/2021, 09/01/2020, 08/04/2020 Influenza Adult (#1) 2024 04/23/2022, 02/19/2021, 02/07/2020, Additional history exists DTaP, Tdap and Td Vaccines (2 - Td or Tdap) 12/10/2026 12/10/2016 RSV Immunization or 60+ Years (1 - 1-dose 75+ series) 2036 Meningococcal B Vaccine Aged Out No l onger eligible based on patient's age to complete this topic Meningococcal Vaccine Aged Out No arsen shaw eligible based on patient's age to complete this topic RSV Immunizations Under 20 Months Aged Out No longer eligible based on patient's age to complete this topic Procedures Procedure Name Priority Date/Time Associated Diagnosis Comments LIPID PANEL Routine 08/25/2022 12:49 PM AUDIO VISUAL ARTS DIRECTOR Screening for lipid disorders MAMMOGRAM GENERIC (SCAN ORDER) Routine 07/02/2021 from Last 3 Months or Most Recently Relevant to Health Maintenance Results * (ABNORMAL) LIPID PANEL (08/25/2022 12:49 PM AUDIO VISUAL ARTS DIRECTOR) CHOLESTEROL 213(H) <200 mg/dL [facility] HDL 91 > OR = 50 mg/dL [facility] TRIGLYCERIDES 78 <150 mg/dL [facility] LDL (CALCULATED) 105(H) mg/dL (calc) [facility] Comment: Reference range: <100 Desirable range <100 mg/dL for primary prevention; <70 mg/dL for patients with CHD or diabetic patients with > or = 2 CHD risk factors. LDL-C is now calculated using the Brian-Tawanda calculation, which is a validated novel method providing better accuracy than the Friedewald equation in the estimation of LDL-C. Brian ALFARO et al. NEETU. 2013;310(19): 9762-1266 (http://education.[employer]/faq/HRA753) CHOL/HDL RATIO 2.3 <5.0 (calc) [facility] NON HDL CHOLESTEROL 122 <130 mg/dL (calc) [facility] Comment: For patients with diabetes plus 1 major ASCVD risk factor, treating to a non-HDL-C goal of <100 mg/dL (LDL-C of <70 mg/dL) is considered a therapeutic option. 08/25/2022 12:4 9 PM AUDIO VISUAL ARTS DIRECTOR 08/26/2022 5:08 AM AUDIO VISUAL ARTS DIRECTOR Narrative Resulting Agency Comment Performing Organization Information: Site ID: [id number] Name: [facility] Address: [address] [id number] Director: Alma Simmons MD us Dick Moreno DO LABORATORY Final Resul t [facility] - JENNI MCCLENDON [facility] [address] [address], [place] * MAMMOGRAM (07/02/2021) Anatomical Region Laterality Modality Other us Documents Scanned SCANNING Final Result from Last 3 Months or Most Recently Relevant to [place] [address] Advance Directives Documents on File Type Date Recorded Patient Dental Amalgam Processor Expl anation Legal Documents 05/31/2012 SLEGAL Care Teams Test Driller Relationship Specialty Start Date End Date Atilio Estrada DO [address] [facility] [address] [place], [place] [id number] PCP - General INTERNAL MEDICINE 12/05/23 Salazar Walker MD [facility] [address] [place] [address] SURGERY 01/28/23 Evens Birch MD [id number] [facility] [address] [place] [address] SURGERY 05/27/23
--- OUTSIDE RECORDS SUMMARY | 2024-08-27 13:30 | XMS_ITS | Referral Summary ---
Author Organization [facility] [address] Address [address] [place] [address] Care Team Providers Care Boiler Or Engine Operator Name Role Phone Salazar Walker MD Unavailable [phone] Dick Moreno DO Primary Care Provider Luli Clifton NP Unavailable [phone] Encounters Date Type Department Care Team Description 08/23/2024 Telephone [facility] Pre Anesthesia Testing [facility] [place] [address] Minna Hudson 08/16/2024 Telephone [facility] Pre Anesthesia Testing [facility] [place] [address] Minna uHdson 07/11/2024 Telephone [facility] Physicians [address] Medical Office Building [address] [place] [address] Marcos Espinoza MD Appointment from Last 3 Months Allergies Active Allergy Reactions Criticality Noted Date Comments Oxycodone Itching Low 04/20/2023 Prednisone Hives Medium 06/09/2012 Tramadol Hives Medium 03/11/2021 Medications Vitamin D3 50 mcg (2,000 unit) tablet Take 1 tablet (2,000 Units total) by mouth daily Active ibuprofen (ADVIL,MOTRIN) 800 mg tablet Take 1 tablet (800 mg total) by mouth every 6 (six) hours as needed for pain Active HYDROcodone-ambar taminophen (NORCO) 5-325 mg per tabletIndicatio ns:Pain Take 1 tablet by mouth every 4 (four) hours as needed for pain 15 tablet 3 Active montelukast (SINGULAIR) 10 mg tablet Take 1 tablet (10 mg total) by mouth nightly 90 tablet 4 Active meloxicam (MOBIC) 15 mg tablet Take 1 tablet (15 mg total) by mouth daily 30 tablet 4 04/18/20 25 Active methocarbamoL (ROBAXIN) 500 mg tablet Take 1 tablet (500 mg total) by mouth 2 (two) times a day 20 tablet 4 Active cyclobenzaprine (FLEXERIL) 10 mg tablet TAKE 1 TABLET BY MOUTH EVERY 8 HOURS NEEDED. CAN CUT IN HALF IF TOO SEDATING 4 Active gabapentin (NEURONTIN) 300 mg capsule Take 1 capsule (300 mg total) by mouth 2 (two) times a day Active lidocaine (LIDODERM) 5 % APPLY 1 PATCH TOPICALLY DAILY. LEAVE ON MOST PAINFUL AREA FOR UP TO 12 HOURS. MAX 1 PATCH IN 24 HOUR PERIOD. 4 Active Active Problems Problem Noted Date Diagnosed Date Herniated lumbar intervertebral disc 07/19/2024 Lumbar radiculopathy 07/19/2024 Dermatitis 06/09/2023 Aortic atherosclerosis 11/26/2022 Overview (03/16/2023): Noted on CT August 2022 Vitamin D deficiency 08/20/2021 Chiari I malformation 06/05/2021 Overview (03/16/2023): Noted on MRI 08/20/20 Stage 3a chronic kidney disease 06/05/2021 Alopecia 10/08/2020 Episodic tension-type headache, not intractable 07/26/2020 Assessment & Plan (03/11/2021 3:00 PM CDT): Patient experienced untoward daytime sedation with the amitriptyline but is interested in alternative by headache prophylaxis. In lieu of the amitriptyline, I will place her on a trial of nortriptyline 25 mg HS which should have less sedation. She will follow-up in 6 months in Neurology [facility] for reassessment. Assessment & Plan (09/17/2020 2:52 PM CDT): Patient has several month history of now daily headaches with historical characterization suggesting muscle contraction type headaches. Given the increase headache frequency and non response at apto-nhj-qjdnrnf analgesics and more recently tramadol, I will prescribe amitriptyline 25 mg HS and asked that she discontinue the tramadol together. I will see her back in the office in 6 months time for reassessment on headache prophylaxis with amitriptyline. Assessment & Plan (07/26/2020 3:19 PM MANAGER CONTINUOUS IMPROVEMENT): Patient reports a several month new history of progressively worsening headache. She has had prior history of headaches but says that these headaches are different in their progressive worsening nature. Her neurologic examination is normal. I will obtain an MRI of the brain to exclude structural abnormalities such as brain tumor or an increase in aneurysm size to account for her increasing headaches. I will see her back thereafter. Cerebral aneurysm 07/26/2020 Assessment & Plan (03/11/2021 3:01 PM CDT): Patient has history of known cerebral aneurysm with unchanged MRA as of earlier this year. She will need continued serial surveillance with MRA in years to come. Assessment & Plan (09/17/2020 2:52 PM CDT): Patient has undergone MRA demonstrating similar cerebral aneurysm to previous examination a couple of years ago. Another follow-up surveillance scan in 2-3 years would be recommended and can be pursued in future. Assessment & Plan (07/26/2020 3:21 PM MANAGER CONTINUOUS IMPROVEMENT): Patient has previous documented history of cerebral aneurysm. It was smaller than 5 mm and so continued periodic surveillance had been recommended when she was last seen at [facility] 2 years ago. She has been having a new onset of headaches for the last several months increasing in frequency. I will obtain an MRA for comparison of her previous document cerebral aneurysm. If there is enlargement of the aneurysm to 5 mm or greater in size, then she will need tertiary referral to either a neurosurgeon or an interventional neuroradiologist. I will see her back in the office upon completion of testing. Immunizations Immunization Administration Dates Next Due Influenza, Trivalent, Preservative Free, Intramu scular 03/25/2016 Tdap 12/10/2016 Social History Tobacco Use Types Packs/Day Years Used Date Smoking Tobacco: Every Day Cigarettes 0.3 40 Passive Smoke Exposure: Never Smokeless Tobacco: Never Tobacco Cessation:Ready to Q uit: Not Asked; Counseling Given: Not Answered AUDIT-C Answer Date Recorded Q1: How often do you have a drink containing alc ohol? 2-3 times a week 04/21/2023 Q2: How many drinks containi ng alcohol do you have on a typical day when you are drinking? 5 or 6 04/21/2023 Q3: How often do you have si x or more drinks on one occasion? Monthly 04/21/2023 Personal Safety Answer Date Recorded Have you ever been in or are you currently in a harmful physical or emotional relationship or is someone making you feel afraid or unsafe? Denies 04/18/2024 Comments No Sex and Gender Information Value Date Recorded Sex Assigned at Not on file Legal Sex Female 3:31 AM MANAGER CONTINUOUS IMPROVEMENT Gender Identity Not on file Sexual Orientation Not on file Last Filed Vital Signs Vital Sign Reading Time Taken Comments Blood Pressure 134/71 04/18/2024 12:42 PM CDT Pulse 83 04/18/2024 12:42 PM CDT Temperature 36.8 C (98.2 F) 04/18/2024 12:42 PM CDT Respiratory Rate 16 04/18/2024 12:42 PM CDT Oxygen Saturation 99% 04/18/2024 12:42 PM CDT Inhaled Oxygen Concentration - - Weight 45.4 kg (100 lb) 04/18/2024 12:42 PM CDT Height 152.4 cm (5') 04/18/2024 12:42 PM CDT Body Mass Index 19.53 04/18/2024 12:42 PM CDT Plan of Treatment Upcoming Encounters Date Type Department Care Team (Latest Contact Info) Description 09/14/2024 1:00 PM CDT Hospital Encounter [facility] Operating Room [address] [place] [phone] [place] [address] [place] [address] 09/14/2024 1:00 PM CDT - 09/14/2024 3:30 PM CDT Surgery [facility] Operating Room [facility] [place] [phone] [place] [address] [place] [address] [id number] Right L4-5 Microdiscectomy Scheduled Procedures Name Priority Associated Diagnoses Date/Ti me MICRODISCECTOMY - 1 LEVEL Herniated lumbar intervertebral disc Lumbar radiculopathy 09/14/2024 1:00 PM CDT Medical Devices Implanted Type Area Inpatient Care Manager Rn Device Identifier Shelf Expiration Date Model / Serial / Lot Mesh Mesh Abdomen Medtronic Inc Progrip [id number] Self Fixate Flat Sheet Mesh Surgical Shikha Pet Latex Free [id number] - [id number] Implanted:Qty: 1 on 03/31/2023 by Salazar Walker MD at [facility] Mesh Right: Abdomen Medtronic Inc [id number] 07/22/2025 [id number] / / [id number] Plate Plate Right: Foot Screw Screw Left: Foot Medtronic [employer] Progrip [id number] Self Fixate Flat Sheet Mesh Surgical Shikha Pet Latex Free [id number] - [id number] Implanted:Qty: 1 on 12/13/2021 by Salazar Walker MD at [facility] N/A: Abdomen Medtronic Inc 07/22/2024 [id number] / / [id number] Insurance MEDICARE SOLUTIONS MEDICARE SOLUTIONS Care Teams Boiler Or Engine Operator Relationship Specialty Start Date End Date Dick Moreno DO [address] [place] [address] [phone] PCP - General Family Medicine 08/26/23 Salazar Walker MD [address] [place] [address] [phone] Consulting Physician General Surgery 03/31/23 Luli Clifton NP [address] [place] [address] Family Medicine 12/14/23
--- OUTSIDE RECORDS SUMMARY | 2024-08-27 13:30 | XMS_ITS | Clinical Summary ---
Author Organization [facility] [address] Address [address] [place] [address] Care Team Providers Care Coat Baster Name Role Phone Salazar Walker MD Unavailable [phone] Dick Moreno DO Primary Care Provider Luli Clifton NP Unavailable [phone] Allergies Active Allergy Reactions Criticality Noted Date Comments Oxycodone Itching Low 04/20/2023 Prednisone Hives Medium 06/09/2012 Tramadol Hives Medium 03/11/2021 Medications Vitamin D3 50 mcg (2,000 unit) tablet Take 1 tablet (2,000 Units total) by mouth daily 1 Active ibuprofen (ADVIL,MOTRIN) 800 mg tablet Take [...] CAN CUT IN HALF IF TOO SEDATING Active gabapentin (NEURONTIN) 300 mg capsule Take [...] increase headache frequency and non response at jvxc-pju-dedfxph analgesics and more recently tramadol, I will prescribe amitriptyline 25 mg HS and asked that she discontinue the tramadol together. I will see her back in the office in 6 months time for reassessment on headache prophylaxis with amitriptyline. Assessment & Plan (07/26/2020 3:19 PM STRUCTURAL STEEL DETAILER): Patient reports a several month new history [...] future. Assessment & Plan (07/26/2020 3:21 PM STRUCTURAL STEEL DETAILER): Patient has previous documented history of cerebral aneurysm. It was smaller than 5 mm and so continued periodic surveillance had been recommended when she was last seen at [facility] 2 years ago. She has been [...] in the office upon completion of testing. Encounters Date Type Department Care Team Description 08/23/2024 Telephone [facility] Pre Anesthesia Testing [address] [place] [address] Minna Hudson 08/16/2024 Telephone [facility] Pre Anesthesia Testing [facility] [place] [address] Minna Hudson 07/11/2024 Telephone [facility] with [facility] Physicians [address] Medical Office Building [address] [place] [address] Marcos Espinoza MD Appointment from Last 3 Months Immunizations Immunization Administration Dates Next Due Influenza, Trivalent, Preservative Free, Intramu scular 03/25/2016 Tdap 12/10/2016 Surgical History Surgery Date Site/Laterality Comments SECTION HERNIA REPAIR x3 FOOT SURGERY Bilateral has hardware in both feet GALLBLADDER SURGERY COLONOSCOPY 06/22/2017 - 06/21/2018 HERNIA REPAIR 03/31/2023 Robotic assisted Laparoscopic Right Spigelian Hernia Repair with Mesh CHOLECYSTECTOMY Medical History Medical History Date Comments Migraines Alopecia Chronic bronchitis (HCC) Presence of upper and lower permanent dental romina dges Wears glasses Cervical herniated disc sees balwinder rology Allergic rhinitis ANDRAE (generalized anxiety disorder) Kidney stones Multilevel degenerative disc disease Chiari I malformation (HCC) Family History Medical History Relation Name Comments No Known Problems Brother 1 No Known Problems Brother 2 Cancer Father Dementia Mother ALS Sister Dementia Sister Relation Name Status Comments Brother 1 Brother 2 Alive Father Mother Sister Social History Tobacco Use Types Packs/Day Years [...] on file Legal Sex Female 3:31 AM STRUCTURAL STEEL DETAILER Gender Identity Not on file Sexual Orientation Not on file Obstetrics History Last Filed Vital Signs Vital Sign Reading [...] Description 09/14/2024 1:00 PM CDT Hospital Encounter [facility] Operating Room [address] [place] [phone] [place] [address] [place] [address] [phone] 09/14/2024 1:00 PM CDT - 09/14/2024 3:30 PM CDT Surgery [facility] Operating Room [address] [place] [phone] [place] [address] [place] [id number] Right L4-5 Microdiscectomy Scheduled Procedures Name Priority Associated Diagnoses Date/Ti me MICRODISCECTOMY - 1 LEVEL Herniated lumbar intervertebral disc Lumbar radiculopathy 09/14/2024 1:00 PM CDT Health Maintenance Due Date Last Done Comments Breast Cancer Screening-Mammogram 1961 Cervical Cancer Screening 1961 Colon Cancer Screening-Colonoscopy 1961 Depression Screening 1961 Hepatitis C Screening 1961 Hepatitis B Screening 1979 Regular Well Visit/Exam 18-64 1979 Pneumococcal vaccine <65 (2 of 2 - PCV) 12/10/2017 12/10/2016 Zoster Vaccine (2 of 2) 04/16/2021 02/19/2021 Covid-19 Vaccine (2023-2 5 season) 2024 04/29/2021, 09/01/2020, 08/04/2020 Influenza Vaccine (#1) 2024 2, 02/19/2021, 02/07/2020, Additional history exists DTaP/Tdap/Td Vaccine (2 - Td or Tdap) 12/10/2026 12/10/2016 Medical Devices Implanted Type Area Script Writer Device Identifier Shelf Expiration Date Model / Serial / Lot Mesh Mesh Abdomen Medtronic Inc Progrip [id number] Self Fixate Flat Sheet Mesh Surgical Shikha Pet Latex Free [id number] - [id number] Implanted:Qty: 1 on 03/31/2023 by Salazar Walker MD at [facility] Mesh Right: Abdomen Medtronic Inc [id number] 07/22/2025 [id number] / / [id number] Plate Plate Right: Foot Screw Screw Left: Foot Medtronic Inc Progrip [id number] Self Fixate Flat Sheet Mesh Surgical Shikha Pet Latex Free [id number] - [id number] Implanted:Qty: 1 on 12/13/2021 by Salazar Walker MD at [facility] N/A: Abdomen Medtronic Inc 07/22/2024 [id number] / / [id number] Insurance MEDICARE [facility] Address: [address] [address] MEDICARE [facility] Address[address] [address] Care Teams Coat Baster Relationship Specialty Start Date End Date Dick Moreno DO [address] [place] [id number] PCP - General Family Medicine 08/26/23 Salazar Walker MD [address] [place] [phone] Consulting Physician General Surgery 03/31/23 Luli Clifton NP [address] [place] [address] Family Medicine 12/14/23
--- OUTSIDE RECORDS SUMMARY | 2024-08-27 13:30 | XMS_ITS | Clinical Summary ---
Author Organization [facility] Address [address], [address] [address] Phone Care Team Providers Care Precinct Police Lieutenant Name Role Phone Holly Thomson MD Unavailable Unavailable Atilio Estrada DO Primary Care Provider Medications ALPRAZolam (XANAX) 0.25 MG Tablet Take 0.25 mg by mouth daily. Active Family History Medical History Relation Name Comments Dementia Brother Heart Disease Father Dementia Mother Cancer Sister cervical and sk in -ALS Relation Name Status Comments Brother Father Mother Sister Social History Tobacco Use Types Packs/Day Years Used Date Smoking Tobacco: Every Day Cigarettes 0.3 36 Smokeless Tobacco: Never Alcohol Use Standard Drinks/Week Comments Yes 0 (1 standard drink = 0.6 oz pur e alcohol) socially 5 drinks a week Comments Unknown Sex and Gender Information Value Date Recorded Sex Assigned at Not on file Legal Sex Female 11:11 PM CDT Gender Identity Not on file Sexual Orientation Not on file 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 Not on file Not on file Not on file Last Filed Vital Signs Vital Sign Reading Time Taken Comments Blood Pressure 118/98 10/07/2017 1:22 PM CDT Pulse 63 10/07/2017 11:40 AM CDT Temperature 36 C (96.8 F) 10/07/2017 1:22 PM CDT Respiratory Rate 15 10/07/2017 1:22 PM CDT Oxygen Saturation 99% 10/07/2017 1:22 PM CDT Inhaled Oxygen Concentration - - Weight - - Height - - Body Mass Index - - Plan of Treatment Health Maintenance Due Date Last Done Comments Hepatitis C Virus (HCV) Screening 1961 TdaP Immunization 1961 Pap Smear 1982 Cervical Cancer Screening (CCS) 1991 HPV/Cotest 1991 Cologuard 2011 Immunochemical Fecal Occult Blood 2011 Mammogram 2011 Pneumococcal Immunization (5 0+ years) (1 of 1 - PCV) 2011 Zoster Immunization (1 of 2) 2011 Influenza Immunization (#1) 2024 SARS-COV-2 Immunization ( - 2023- season) 2024 Colonoscopy 10/08/2027 10/07/2017 Colorectal Cancer Screening 10/08/2027 Respiratory Syncytial Virus (RSV) Immunization (Adult) (1 - 1-dose 75+ series) 2036 10/07/2017 Hepatitis B Immunization Aged Out No longer eligible based on patient's age to complete this topic Meningococcal Immunization (ACWY) Aged Out No longer eligible based on patient's age to complete this topic Pneumococcal Immunization Combined Aged Out No longer eligible based on patient's age to complete this topic Rotavirus Immunization Aged Out No lo nger eligible based on patient's age to complete this topic Insurance MEDICAID [place] MEDICARE Care Teams Precinct Police Lieutenant Relationship Specialty Start Date End Date Atilio Estrada DO [facility] [facility] [place] [address] PCP - General Internal Medicine 10/07/17 Holly Thomson MD Obstetrics & Gynecology 09/15/17
--- OUTSIDE RECORDS SUMMARY | 2024-08-27 13:30 | XMS_ITS | Continuity of Care Document ---
Author Organization [facility] Address [address] [place] [address] Phone Care Team Providers Care Internet Marketing Director Name Role Phone Baltazar PT,MPT,ATC, Harry Unavailable Unavai lable Procedures Procedure Date Therapeutic Exercise Neuromuscular Re-Ed Progress Note Therapeutic Exercise Neuromuscular Re-Ed Manual Therapy Therapeutic Exercise Neuromuscular Re-Ed Therapeutic Exercise Manual Therapy Hot or Cold Pack Electrical Stimulation Therapeutic Exercise Manual Therapy Mobility: Walking And Moving Limitations -Curent Mobility: Walking And Moving Limitation- Goal PT Evaluation Moderate Complexity Neuromuscular Re-Ed Manual Therapy Mobility: Walking And Moving Limitations -Curent Mobility: Walking And Moving Limitation- Goal Advance Directives Directive Yes / No Effective Date File Name No Information Encounters Encounter Description Practice Location Reason(s) For Visit Diagnoses Date Provider Providers Copied on Encounter [facility], [address], [place], [place], [id number], tel:[phone] [place] No Information [address] [place], [place], [place]. Referring Provider: [place], [address]. tel:[phone] [facility] [address], [id number], [place] tel:[phone] [place] No Information 7 [place], [place], . Referring Provider: [place], [address]. tel:[phone] [facility] [address], [id number], [place] tel:[phone] [place] No Information 7 [place], [place], . Referring Provider: [place], [address]. tel:[phone] [facility] [address], [id number], tel:[phone] [place] No Information 7 [place], [place], [place]. Referring Provider: [place], [address]. tel:[phone] [facility] [address], [id number], tel:[phone] [place] No Information 7 [facility]. Referring Provider: [place], [address]. tel:[phone] [facility] [address], [id number], [place] tel:[phone] [place] Unsp fracture of right foot, subs for fx w nonunion 7 [place], [place], [place]. Referring Provider: [place], [address]. tel:[phone] Family History Family Member Type Diagnosis Age At Onset No Information Payers Payer name Insurance type Covered alliance party ID Authoryessya tiingrid(s) Medicare [place] [id number] Social History Type Description Quantity Date Captured Comments Sex Female Smoking Status No Information Chief Complaint And Reason For Visit No Information Reason For Referral Reason For Referral No Information History Of Present Illness Encounter Date Complaint History Of Prese nt Illness No Information Functional Status Date Functional Assessmen t No Information Instructions Date Instruction Additional Infor mation No Information Assessments Type Assessment Date No Information Patient Care Teams Name Effective Dates (start - stop) Status Members No Information
--- OUTSIDE RECORDS SUMMARY | 2024-08-27 13:30 | XMS_ITS | Data Portability ---
Author Organization [place] [facility], Main Office Address [address] [place] [address] Care Team Providers Care Marine Engineering Professor Name Role Phone BLESSING LONG Primary Care Provider [phone] BLESSING LONG Referring Provider [phone] Assessment Encounter Date Assessment Date Assessment LastModified by Organization Details LastModified Time 01/20/2024 01/20/2024 63-year-old female presents for evaluation of her left hand. She had injury on 12/20/2023 when she fell at a restaurant and landed on her hand, and has had pain since then. She reports pain over the 3rd MCP knuckle. She has been using diclofenac gel, gabapentin, ibuprofen, naproxen without significant improvement. She is right-hand dominant. She smokes half pack a day. 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 No tenderness directly over the bone. Pain with resisted abduction of the finger. Sensation intact to light touch. 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 We will treat her conservatively with rosy taping and should continue taking anti-inflammatori es. She may follow up in 8 weeks as needed. We also discussed smoking cessation and the effects of nicotine on healing, 3 minutes were spent. [email or web address] Not available 01/21/2024 15:50:25 Plan of Treatment Reminders Order Date Submit Date Provider Last Modified By Organization Details Last Modified Time Details Appointments None record ed. Lab None record ed. Referral None record ed. Procedures None record ed. Surgeries None record ed. Imaging None record ed. Medication Orders None record ed. Patient TargetsNo targets recorded. Patient InstructionsNo instructions recorded. Reason for Referral None Reported. Results Created Date Observation Date Name Description Value Unit Range Abnormal Flag Note LastModifiedBy Organization Detail LastModifiedTime 01/20/20 24 12/25/2023 XR, hand, 3 or more view No observ ation record ed. [email or web address] Not Available 01/19 16:58:22 Result Notes None recorded. Problems Name Problem SNOMED Code Status Onset Date Resolution Date Notes Provider Name and Address Organization Details Recorded Time Weight increased 347825975 Active Not Available [facility] 3 17:32:48 Adnexal tenderness 952848232 Active Not Available [facility] 3 17:32:48 Pain of left hand 6239837582640 03 Active 2023 CARLOS Hamilton, [place] [facility] [employer] 4 14:48:10 Sprain of metacarpop halangeal joint 53464082 Active 2023 Atilio Mckeon MD [address] [place] [address], [phone] , [employer] 4 15:50:48 Problem Notes None recorded. Procedures Surgical History Date Name Laterality Status Provider Name and Address Organization Details Recorded Time section completed Beata Spain EARLY LEARNING TEACHER [place] [facility] [employer] 01/20/2024 14:47:19 Foot Surgery completed Beata Spain EARLY LEARNING TEACHER [place] [facility] 01/20/2024 14:47:27 Hernia Surgery completed Beata rojas EARLY LEARNING TEACHER [place] [facility] [facility] [employer] 01/20/2024 14:47:43 Imaging Results Imaging Date Name Status LastModified by Organiz ation Details LastModified Time 12/25/2023 XR, hand, 3 or more view completed [email or web address] Information not available 01/20/2024 16:58:22 Procedure Notes None recorded. Medical Equipment None Reported. Allergies Allergen ID Allergen Name Allergen Category Reaction Reaction Severity Criticality Documentation Date Start Date Code Code System Note Provider Name and Address Organization Details Recorded Time 76306 prednison e medicatio n dizziness Not available Not available 08/20/2022 8640 RxNorm Not Available [facility] 3 17:33:50 49981 tramadol medicatio n hives Not available Not available 01/20/2024 72104 RxNorm CARLOS [place] - [facility] [place] [employer] 4 14:42:46 Medications Name Sig Start Date Stop Date Status Note LastModified by Organization Details LastModified Time cyclobenzap rine 10 mg tablet TAKE 1/2 TABLET BY MOUTH THREE TIMES DAILY NEEDED FOR MUSCLE SPASM 01/19 completed Not Available Not Available Not Available amoxicillin 500 mg capsule 01/17 completed Not Available Not Available Not Available prednisone 10 mg tablet active Not Available Not Available Not Available gabapentin 600 mg tablet 01/17 completed Not Available Not Available Not Available doxycycline hyclate 100 mg capsule 01/17 completed Not Available Not Available Not Available naproxen 375 mg tablet TAKE 1 TABLET BY MOUTH TWICE DAILY active Not Available Not Available No t Available azithromyci n 250 mg tablet TAKE 2 TABLETS BY MOUTH FOR 1 DAY THEN TAKE 1 TABLET BY MOUTH DAILY FOR 4 DAYS 01/17 completed Not Available Not Available Not Available ibuprofen 800 mg tablet TAKE 1 TABLET BY MOUTH THREE TIMES DAILY 01/19 completed Not Available Not Available Not Available fluconazole 150 mg tablet active Not Available Not Available Not Available benzonatate 200 mg capsule TAKE 1 CAPSULE BY MOUTH THREE TIMES DAILY NEEDED active Not Available Not Available No t Available hydrocodone 5 mg-acetamin ophen 325 mg tablet TAKE 1 TABLET BY MOUTH EVERY 8 HOURS NEEDED FOR PAIN 01/17 completed Not Available Not Available Not Available meperidine 50 mg tablet TK 1 T PO Q 4-6 H PRN P 01/17 completed Not Available Not Available Not Available fluconazole 200 mg tablet 01/17 completed Not Available Not Available Not Available meloxicam 15 mg tablet 01/17 completed Not Available Not Available Not Available prednisone 20 mg tablet TAKE 2 TABLETS BY MOUTH DAILY WITH FOOD FOR 5 DAYS. DO NOT TAKE WITH ASPIRIN OR NSAIDS SUCH ALEVE OR IBUPROFEN ETC 01/17 completed Not Available Not Available Not Available alendronate 70 mg tablet 01/17 completed Not Available Not Available Not Available clonazepam 0.5 mg tablet active Not Available Not Available Not Available sertraline 100 mg tablet 01/17 completed Not Available Not Available Not Available acetaminoph en 300 mg-codeine 30 mg tablet 01/17 completed Not Available Not Available Not Available ciprofloxac in 500 mg tablet 01/17 completed Not Available Not Available Not Available sulfamethox azole 800 mg-trimetho prim 160 mg tablet 01/17 completed Not Available Not Available Not Available tramadol 50 mg tablet 01/17 completed Not Available Not Available Not Available amitriptyli ne 50 mg tablet 01/17 completed Not Available Not Available Not Available amoxicillin 500 mg tablet 01/19 completed Not Available Not Available Not Available ketorolac 10 mg tablet TAKE 1 TABLET BY MOUTH EVERY 6 HOURS NEEDED FOR PAIN 01/17 completed Not Available Not Available Not Available meloxicam 7.5 mg tablet 01/17 completed Not Available Not Available Not Available oxycodone-a cetaminophe n 5 mg-325 mg tablet 01/17 completed Not Available Not Available Not Available amoxicillin 875 mg tablet TK 1 T PO Q 12 H 01/17 completed Not Available Not Available Not Available citalopram 20 mg tablet active Not Available Not Available Not Available amitriptyli ne 25 mg tablet active Not Available Not Available Not Available prednisolon e acetate 1 % eye drops,suspe nsion 01/17 completed Not Available Not Available Not Available methocarbam ol 750 mg tablet TAKE 1 TABLET BY MOUTH EVERY 8 HOURS active Not Available Not Available No t Available hydrocodone 7.5 mg-acetamin ophen 325 mg tablet active Not Available Not Available No t Available erythromyci n 5 mg/gram (0.5 %) eye ointment 01/17 completed Not Available Not Available Not Available naproxen 500 mg tablet,orlando yed release TK 1 T PO BID 01/17 completed Not Available Not Available Not Available indomethaci n 50 mg capsule 01/17 completed Not Available Not Available Not Available diclofenac potassium 50 mg tablet 01/17 completed Not Available Not Available Not Available gabapentin 300 mg capsule TAKE 1 CAPSULE BY MOUTH THREE TIMES DAILY 01/17 completed Not Available Not Available Not Available omeprazole 20 mg capsule,del ayed release 01/17 completed Not Available Not Available Not Available montelukast 10 mg tablet 01/19 completed Not Available Not Available Not Available diclofenac sodium 50 mg tablet,orlando yed release 01/17 completed Not Available Not Available Not Available gabapentin 100 mg capsule active Not Available Not Available Not Available azelastine 137 mcg (0.1 %) nasal spray active Not Available Not Available Not Available ibuprofen 600 mg tablet active Not Available Not Available Not Available polyethylen e glycol 3350 17 gram/dose oral powder active Not Available Not Available Not Available levofloxaci n 500 mg tablet active Not Available Not Available Not Available oxycodone-a cetaminophe n 7.5 mg-325 mg tablet 01/17 completed Not Available Not Available Not Available methylpredn isolone 4 mg tablets in a dose pack FOLLOW PACKAGE DIRECTION S 01/19 completed Not Available Not Available Not Available albuterol sulfate HFA 90 mcg/actuati on aerosol inhaler INHALE 1 PUFF BY MOUTH EVERY 12 HOURS NEEDED FOR SHORTNESS OF BREATH OR WHEEZING active Not Available Not Available No t Available sertraline 50 mg tablet 01/17 completed Not Available Not Available Not Available naproxen 500 mg tablet TAKE 1 TABLET BY MOUTH TWICE DAILY 01/17 completed Not Available Not Available Not Available amoxicillin 875 mg-potassiu m clavulanate 125 mg tablet TAKE 1 TABLET BY MOUTH TWICE DAILY 01/17 completed Not Available Not Available Not Available nabumetone 500 mg tablet 01/17 completed Not Available Not Available Not Available amoxicillin 500 mg-potassiu m clavulanate 125 mg tablet TAKE 1 TABLET BY MOUTH EVERY 12 HOURS FOR 10 DAYS 01/19 completed Not Available Not Available Not Available oxycodone 5 mg tablet 01/19 completed Not Available Not Available Not Available hydroxyzine pamoate 25 mg capsule TK 1 C PO QID PRN 01/17 completed Not Available Not Available Not Available Benadryl 2 % topical gel APPLY TOPICALLY THREE TIMES DAILY NEEDED FOR SKIN IRRITATIO N active Not Available Not Available No t Available varenicline tartrate 0.5 mg (11)-1 mg (42) tablets in a dose pack BY MOUTH PER PKG DIR 01/19 completed Not Available Not Available Not Available diclofenac 1 % topical gel active Not Available Not Available Not Available Vicodin 5 mg-300 mg tablet 01/17 completed Not Available Not Available Not Available Virtussin AC 10 mg-100 mg/5 mL oral liquid active Not Available Not Available Not Available Vitals Date Recorded Body height Body mass index (BMI) Body weight Provider Name and Address Organization Details Last Updated DateTime 01/20/2024 152.4 cm 19.5 kg/m2 84678.16 g CARLOS Hamilton - [facility] 01/20/2024 14:42:11 Social History Question Answer Notes LastModified by Organizat ion Details LastModified Time Tobacco Smoking Status Current Every Day Smoker Beata Spain CNA null, [facility] 01/20/2024 14:46:25 What Is Your Level Of Alcohol Consumption? Moderate Information not available 01/20/2024 How Much Tobacco Do You Smoke? 0.5 PPD Information not available 01/20/2024 Sex: Unknown Functional Status None recorded. Mental Status None recorded. Family History Relationship Description Onset Age of this Age Resolved Age Notes LastModified by Organization Details LastModified Time Mother Dementia Not available 0 01/20/2024 14:45:34 Brother Dementia Not available 01/20/2024 14:45:34 Notes:Sydnie Gherig's disease s ister Medical History Condition Response ARTHRITIS Y Gynecological HistoryNo gynecological history recorded. Obstetrics History GPAL:G 0 P 0 0 0 0 Past Encounters Encounter ID Performer Location Encounter Start Date Encounter Closed Date Diagnosis/Indication Diagnosis SNOMED-CT Code Diagnosis ICD10 Code Diagnosis Note [id number] Atilio Mckeon MD [facility] [address] [place] [address] 01/20/2024 14:07:11 01/20/2024 15:41:32 Pain of left hand 7034012806 35398 M79.642 Sprain of metacarpophalangeal joint 37346895 S63.659A Health Concerns Section Related Observation LastModified by Organization Detai ls LastModified Time None Recorded Concern Status LastModified by Organization Details LastModified Time None Recorded Advance Directives Directive None Recorded Payers Encounter Date Sequence Insurance Name Policy Number Policy Garcia Covered Member ID Garcia Member ID Guarantor Name 01/20/2024 1 [facility] (MEDICARE REPLACEMENT/A DVANTAGE - HMO) [id number] Jackie Edwards [id number] Jackie Edwards OBGyn Episode No OBEpisode recorded.
[2024-08-27 13:49] VITALS: BP 94/52; PULSE 114; RESP 20; TEMP 36.9; O2SAT 95
[2024-08-27 14:12] LABS: Basophils Absolute Auto 0.1 K/mm3 (0.0-0.1); Basophils Percent Auto 0.6 % (0.2-1.2); Eosinophils Absolute Auto 0.1 K/mm3 (0-0.3); Eosinophils Percent Auto 0.7 % (0-4.4); Hematocrit 39.7 % (37.0-47.0); Hemoglobin 13.5 g/dL (12.0-15.0); Immature Granulocyte Absolute 0.03 K/mm3 (0.00-0.031); Immature Granulocyte Percent A 0.3 % (0-0.5); Lymphocytes Absolute Auto 0.66 K/mm3 (0.9-3.2); Lymphocytes Percent Auto 7.3 % (18.3-44.2); Mean Corpuscular Hemoglobin 34.8 pg (26-34); Mean Corpuscular Volume 102.3 fl (80-100); Mean Platelet Volume 8.1 fl (7.4-10.4); Monocytes Absolute Auto 0.6 K/mm3 (0.1-0.6); Monocytes Percent Auto 7.1 % (2.6-8.5); Neutrophils Absolute Auto 7.6 K/mm3 (1.3-6.7); Platelet Count Result 312 k/mm3 (150-375); Red Blood Count 3.88 M/mm3 (4.2-5.4); Red Cell Distribution Width 11.4 % (11.5-14.5); White Blood Count 9.1 K/mm3 (4.5-10.0)
[2024-08-27 14:15] VITALS: BP 108/64; PULSE 106; RESP 15; O2SAT 100
--- NOTE | 2024-08-27 14:22 | ECG_ITS ---
Test Date: 2024-08-27 13:58:33 Measurements Intervals [place] Rate: 110 P: 39 SD: 118 QRS: 72 QRSD: 82 T: 28 QT: 316 QTc: 428 Interpretive Statements SINUS TACHYCARDIA WITH SHORT SD INTERVAL OTHERWISE NORMAL ECG No previous ECG available for comparison Electronically Signed On 08-27-2024 16:06:33 SLAG SKIMMER by Brent Villaseñor M.D.
--- OUTSIDE RECORDS SUMMARY | 2024-08-27 14:26 | XMS_ITS | Referral Summary ---
Author Organization [facility] [address] Address [address] [place] [address] Care Team Providers Care Wireless Construction Manager Name Role Phone Salazar Walker MD Unavailable [phone] Dick Moreno DO Primary Care Provider Luli Clifton NP Unavailable [phone] Encounters Date Type Department Care Team Description 08/23/2024 Telephone [facility] [place] [address] Minna Hudson 08/16/2024 Telephone [facility] [place] [address] Minna Hudson 07/11/2024 Telephone [facility] [address] Medical Office Building [address] [place] [address] Marcos Espinoza MD Appointment from [...] increase headache frequency and non response at uovg-tsw-hwzimip analgesics and more recently tramadol, I will prescribe amitriptyline 25 mg HS and asked that she discontinue the tramadol together. I will see her back in the office in 6 months time for reassessment on headache prophylaxis with amitriptyline. Assessment & Plan (07/26/2020 3:19 PM DESIGN SALES CONSULTANT): Patient reports a several month new history [...] future. Assessment & Plan (07/26/2020 3:21 PM DESIGN SALES CONSULTANT): Patient has previous documented history of cerebral aneurysm. It was smaller than 5 mm and so continued periodic surveillance had been recommended when she was last seen at [facility] 2 years ago. She has been [...] on file Legal Sex Female 3:31 AM DESIGN SALES CONSULTANT Gender Identity Not on file Sexual Orientation [...] Description 09/14/2024 1:00 PM CDT Hospital Encounter [facility] Operating Room [address] [place] [phone] [place] [address] [place] [address] 09/14/2024 1:00 PM CDT - 09/14/2024 3:30 PM CDT Surgery [facility] Operating Room [facility] [place] [phone] [place] [address] [place] [address] [id number] Right L4-5 Microdiscectomy Scheduled Procedures Name Priority Associated Diagnoses Date/Ti me MICRODISCECTOMY - 1 LEVEL Herniated lumbar intervertebral disc Lumbar radiculopathy 09/14/2024 1:00 PM CDT Medical Devices Implanted Type Area Gaming Worker Device Identifier Shelf Expiration Date Model / Serial / Lot Mesh Mesh Abdomen [employer] Progrip [id number] Self Fixate Flat Sheet Mesh Surgical Shikha Pet Latex Free [id number] - [id number] Implanted:Qty: 1 on 03/31/2023 by Salazar Walker MD at [facility] Mesh Right: Abdomen [employer] [id number] 07/22/2025 [id number] / / [id number] Plate Plate Right: Foot Screw Screw Left: Foot [employer] Progrip [id number] Self Fixate Flat Sheet Mesh Surgical Shikha Pet Latex Free [id number] - [id number] Implanted:Qty: 1 on 12/13/2021 by Salazar Walker MD at [facility] N/A: Abdomen [employer] Inc 07/22/2024 [id number] / / [id number] Insurance MEDICARE SOLUTIONS MEDICARE SOLUTIONS Care Teams Wireless Construction Manager Relationship Specialty Start Date End Date Dick Moreno DO [address] [place] [address] [id number] PCP - General Family Medicine 08/26/23 Salazar Walker MD [address] [place] [address] [phone] Consulting Physician General Surgery 03/31/23 Luli Clifton NP [address] [place] [address] Family Medicine 12/14/23
--- OUTSIDE RECORDS SUMMARY | 2024-08-27 14:26 | XMS_ITS | Continuity of Care Document ---
Author Organization [facility] Address [address] [place] [address] Phone Care Team Providers Care Laboratory Equipment Installer Name Role Phone Baltazar PT,MPT,ATC, Harry Unavailable [...] Diagnoses Date Provider Providers Copied on Encounter [facility], [address], [place], [place], [id number], tel:[phone] [place] No Information [address] [place], [place], [place]. Referring Provider: [place], [address]. tel:[phone] [facility] [address], [id number], [place] tel:[phone] [place] No Information 7 [place], [place], . Referring Provider: [place], [address]. tel:[phone] [facility] [address], [id number], [place] tel:[phone] [place] No Information 7 [place], [place], . Referring Provider: [place], [address]. tel:[phone] [facility] [address], [id number], tel:[phone] [place] No Information 7 [place], [place], [place]. Referring Provider: [place], [address]. tel:[phone] [facility] [address], [id number], tel:[phone] [place] No Information 7 [facility]. Referring Provider: [place], [address]. tel:[phone] [facility] [address], [id number], [place] tel:[phone] [place] Unsp fracture of right foot, subs for fx w nonunion 7 [place], [place], [place]. Referring Provider: [place], [address]. tel:[phone] Family History Family Member Type Diagnosis Age At Onset No Information Payers Payer name Insurance type Covered green party ID Authoryessya tiingrid(s) Medicare [place] [id number] Social History Type Description Quantity Date Captured [...]
--- OUTSIDE RECORDS SUMMARY | 2024-08-27 14:26 | XMS_ITS | Clinical Summary ---
Author Organization [facility] Address [address], [address] [address] Phone Care Team Providers Care Deputy Sheriff [id number] Handler Name Role Phone Holly Thomson MD Unavailable [...] topic Insurance [place]ICA[place] MEDICARE Care Teams Deputy Sheriff [id number] Handler Relationship Specialty Start Date End Date Atilio Estrada DO [facility] [place] [address] PCP - General Internal Medicine 10/07/17 Holly Thomson MD Obstetrics & Gynecology 09/15/17
--- OUTSIDE RECORDS SUMMARY | 2024-08-27 14:26 | XMS_ITS | Clinical Summary ---
Author Organization [facility] [address] Address [address] [place] [address] Care Team Providers Care Fountain Waitress/Waiter Name Role Phone Salazar Walker MD Unavailable [phone] Dick Moreno DO Primary Care Provider Luli Clifton NP Unavailable [phone] Allergies Active Allergy Reactions Criticality Noted Date [...] increase headache frequency and non response at bqit-ose-auxjkac analgesics and more recently tramadol, I will prescribe amitriptyline 25 mg HS and asked that she discontinue the tramadol together. I will see her back in the office in 6 months time for reassessment on headache prophylaxis with amitriptyline. Assessment & Plan (07/26/2020 3:19 PM INTERVENTIONAL RADIOLOGY TECH): Patient reports a several month new history [...] future. Assessment & Plan (07/26/2020 3:21 PM INTERVENTIONAL RADIOLOGY TECH): Patient has previous documented history of cerebral aneurysm. It was smaller than 5 mm and so continued periodic surveillance had been recommended when she was last seen at [facility] 2 years ago. She has been [...] Type Department Care Team Description 08/23/2024 Telephone [facility] Pre Anesthesia Testing [address] [place] [address] Minna Hudson 08/16/2024 Telephone [facility] Pre [facility]esthesia Testing [facility] [place] [address] Minna Hudson 07/11/2024 Telephone [facility] [address] Medical Office [address] [place] [address] Marcos Espinoza MD Appointment from [...] on file Legal Sex Female 3:31 AM INTERVENTIONAL RADIOLOGY TECH Gender Identity Not on file Sexual Orientation [...] Description 09/14/2024 1:00 PM CDT Hospital Encounter [facility] Operating Room [address] [place] [phone] [place] [address] [place] [phone] 09/14/2024 1:00 PM CDT - 09/14/2024 3:30 PM CDT Surgery [facility] Operating Room [address] [place] [phone] [place] [address] [place] [id number] Right L4-5 Microdiscectomy Scheduled Procedures Name Priority [...] 12/10/2026 12/10/2016 Medical Devices Implanted Type Area Mid Teacher Device Identifier Shelf Expiration Date Model / Serial / Lot Mesh Mesh Abdomen [employer] Progrip [id number] Self Fixate Flat Sheet Mesh Surgical Shikha Pet Latex Free [id number] - [id number] Implanted:Qty: 1 on 03/31/2023 by Salazar Walker MD at [facility] Mesh Right: Abdomen [employer] Inc [id number] 07/22/2025 [id number] / / [id number] Plate Plate Right: Foot Screw Screw Left: Foot [employer] Progrip [id number] Self Fixate Flat Sheet Mesh Surgical Shikha Pet Latex Free [id number] - [id number] Implanted:Qty: 1 on 12/13/2021 by Salazar Walker MD at [facility] N/A: Abdomen [employer] Inc 07/22/2024 [id number] / / [id number] Insurance MEDICARE SOLUTIONS MEDICARE SOLUTIONS Care Teams Fountain Waitress/Waiter Relationship Specialty Start Date End Date Dick Moreno DO [address] [place] [id number] PCP - General Family Medicine 08/26/23 Salazar Walker MD [address] [place] [address] Consulting Physician General Surgery 03/31/23 Luli Clifton NP [address] [place] [address] Family Medicine 12/14/23
--- OUTSIDE RECORDS SUMMARY | 2024-08-27 14:26 | XMS_ITS | Clinical Summary ---
Author Organization [facility] Address [address] [place] [address] Care Team Providers Care Electoral Officer Name Role Phone Salazar Walker MD Unavailable [phone] Evens Birch MD Unavailable [phone] Atilio Estrada DO Primary Care Provider [phone] Allergies Active Allergy Reactions Criticality Noted Date [...] Vitamin D deficiency 08/20/2021 Chiari I malformation ([facility]) 06/05/20 Overview (06/05/2021): Noted on MRI 08/20/20 Stage 3a chronic kidney disease 06/05/2021 Cerebral aneurysm ([facility]) 06/05/2021 Overview (06/05/2021): Noted by Neurology 03/11/21 [...] Comments LIPID PANEL Routine 08/25/2022 12:49 PM INDUSTRIAL METHODS CONSULTANT Screening for lipid disorders MAMMOGRAM GENERIC (SCAN ORDER) Routine 07/02/2021 from Last 3 Months or Most Recently Relevant to Health Maintenance Results * (ABNORMAL) LIPID PANEL (08/25/2022 12:49 PM INDUSTRIAL METHODS CONSULTANT) CHOLESTEROL 213(H) <200 mg/dL [facility] HDL 91 > OR = 50 mg/dL [facility] TRIGLYCERIDES 78 <150 mg/dL [facility] LDL (CALCULATED) 105(H) mg/dL (calc) [facility] Comment: Reference range: <100 Desirable range <100 mg/dL for primary prevention; <70 mg/dL for patients with CHD or diabetic patients with > or = 2 CHD risk factors. LDL-C is now calculated using the Brian-Tawanda calculation, which is a validated novel method providing better accuracy than the Friedewald equation in the estimation of LDL-C. Brian ALFARO et al. NEETU. 2013;310(19): 8395-7900 (http://education.[employer].Yummly/faq/HYJ657) CHOL/HDL RATIO 2.3 <5.0 (calc) [facility] NON HDL CHOLESTEROL 122 <130 mg/dL (calc) [facility] Comment: For patients with diabetes plus 1 major ASCVD risk factor, treating to a non-HDL-C goal of <100 mg/dL (LDL-C of <70 mg/dL) is considered a therapeutic option. 08/25/2022 12:4 9 PM INDUSTRIAL METHODS CONSULTANT 08/26/2022 5:08 AM INDUSTRIAL METHODS CONSULTANT Narrative Resulting Agency Comment Performing Organization Information: Site ID: [id number] Name: Audrey Thompson Address: [address] [address] Director: Alma Simmons MD us Dick Moreno DO LABORATORY Final Resul t [facility] - JENNI MCCLENDON [facility] [address] [address], [place] * MAMMOGRAM (07/02/2021) Anatomical Region Laterality Modality Other us Documents Scanned SCANNING Final Result from Last 3 Months or Most Recently Relevant to Health [place] [address] Advance Directives Documents on File Type Date Recorded 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 [address] [place] [address] SURGERY 01/28/23 Evesn Birch MD [id number] [facility] [address] [place] [address] SURGERY 05/27/23
[2024-08-27 14:28] LABS: Alanine Aminotransferase 12 U/L (6-35); Albumin Level 3.8 g/dL (3.5-5.1); Alkaline Phosphatase 96 U/L (38-126); Anion Gap 9 mmol/L (4-12); Aspartate Amino Transferase 23 U/L (14-36); Bilirubin,Total 0.5 mg/dL (0.2-1.3); Blood Urea Nitrogen 12 mg/dL (7-17); Carbon Dioxide 25 mmol/L (22-30); Chloride 99 mmol/L (98-107); Estimated CRCL calculation 45 ml/min; Estimated Glomerular Filt Rate > 60; Glucose 102 mg/dL (65-110); Potassium 3.6 mmol/L (3.4-5.0); Sodium 133 mmol/L (137-145)
[2024-08-27] MEDS: ONDANSETRON INJ 4 MG/2 ML VIAL IV PUSH (14:51)
[2024-08-27] MEDS: SODIUM CHLORIDE 0.9% IV 1,000 ML 999 ML IV CONT (14:51)
[2024-08-27 15:38] LABS: Influenza A QL RT-PCR Negative (Negative); Influenza B QL RT-PCR Negative (Negative); RSV RNA, RT-PCR Negative (Negative); SARS-CoV-2 RNA PCR Positive (Negative)
[2024-08-27 15:40] LABS: Lactic Acid Reflex 0.8 mmol/L (0.7-2.0)
--- NOTE | 2024-08-27 15:48 | ED.URI ---
HPI - URI/Sore Throat General Chief Complaint: Upper Respiratory Infection Stated Complaint: Fever, cough, congestion-short of breath/CP Time Seen by Provider: 08/27/24 14:15 Source: patient, RN notes reviewed and old records reviewed Mode of arrival: ambulatory Limitations: no limitations History of Present Illness HPI Narrative: This is a 64 year old smoker who presents for evaluation of shortness of breath and URI. Patient states 2.5 weeks ago she was exposed to someone with flu symptoms. She developed productive cough, nausea, vomiting, chest congestion and sinus congestion. She was she was evaluated total access with chest xray 1-2 week ago. She was told to take sudafed but she states she has not gotten any better. She reports having fever over the past 3 days. She reports fever 103 last night. She reports weakness. Related Data Home Medications ?Medication ?Instructions ?Recorded ?Confirmed ?Last Taken ?Type albuterol sulfate 90 mcg/actuation 1 puff inhalation Q4H PRN 12/03/21 04/14/24 Unknown History aerosol inhaler cholecalciferol (vitamin D3) 50 50 mcg PO DAILY 12/03/21 04/14/24 Unknown History mcg (2,000 unit) tablet acetaminophen 325 mg tablet 325 mg PO Q4-6H PRN 12/11/23 04/14/24 Unknown History (Tylenol) gabapentin 100 mg capsule 100 mg PO BID 12/11/23 04/14/24 Unknown History gabapentin 300 mg capsule 300 mg PO QHS 12/11/23 04/14/24 Unknown History hydrocodone 5 mg-acetaminophen 325 1 tablet PO Q8H PRN 01/20/24 04/14/24 Unknown History mg tablet ibuprofen 600 mg tablet 600 mg PO TID 01/20/24 04/14/24 Unknown History Allergies Allergy/AdvReac Type Severity Reaction Status Date / Time morphine Allergy Intermediate Hives Verified 08/27/24 13:28 tramadol Allergy Intermediate Hives Verified 08/27/24 13:28 Review of Systems Constitutional: Constitutional: Reports fatigue, Reports fever(s) and Reports weakness Respiratory: Respiratory: Reports chest congestion, Reports cough and Reports dyspnea Gastrointestinal: Gastrointestinal: Reports nausea and Reports vomiting PMFSH Past Medical History Medical History Muscle contraction headache Intracranial aneurysm Left hand pain Right ankle pain Diffuse abdominal pain Abnormal MRI of abdomen RUQ abdominal mass Vaginal discharge Pelvic pain in female Anxiety disorder, unspecified Sore throat LLQ abdominal pain History of kidney stones Surgical History Surgical History H/O hernia repair 04/21/23 Open left sided trocar incisional hernia repair, no mesh. Dr. Salazar Walker, [facility] Hx of hernia repair 03/31/23 Robotic assisted right Spigelian hernia repair. Dr. Salazar Walker, [facility] H/O hernia repair 12/13/21 Left lower quadrant incisional hernia and repair of left femoral and obturator hernia repair. Dr. Salazar Walker [facility] Hx of cholecystectomy H/O section Family History Family History Father Cancer Mother Dementia Sibling Dementia Mother Family history of Alzheimer's disease Sibling Family history of dementia Mother Patient's mother is , Onset Age: 62 Family history of Alzheimer's disease Father Patient's father is , Onset Age: 64 Other Family history of malignant neoplasm of ovary Social History Social History Smoking packs per day: 0.5 Smoking cigarettes per day: 10.0 Years smoked: 40 Smoking pack-years: 20.00 Smoking status: Current every day smoker Tobacco type: cigarettes Alcohol intake: current Drinks per week: 5 Alcohol use details: beer socially Substance use: never Do You Feel Safe in your Home?: Yes Lack of Transportation: No Lack of Food: Never True Current Housing: I Have Housing Concerned About Future Housing: No Difficulty Paying Gas/Electric Bills: No Difficulty Paying for Meds: No Currently Unemployed: No Education: Associate Degree Difficulty w/ Childcare or Family Care: No Living arrangements: with family Spiritual care concerns: No Exam Const: General: no acute distress and alert Orientation/consciousness: patient oriented x3 HENMT: Head: normal to inspection Ears: external ears normal and TM's normal bilaterally Face and sinus: normal facial exam Mouth: Yes Normal oral and palatal mucosa present, Yes lip normal and Yes moist mucous membranes Eyes: EOM: EOMs intact bilaterally Resp: Effort & Inspection: normal respiratory effort Auscultation: clear to auscultation bilaterally Cardio: Rate: tachycardic Rhythm: regular rhythm Heart sounds: no murmurs GI: GI Palp: Yes Soft to palpation, No Tenderness to palpation present (GI), No Guarding due to palpation present (GI) and No Rigid due to palpation Auscultation: normal bowel sounds Skin: General skin exam: normal color Rashes: no rashes Wounds: no wounds Neuro: General: patient oriented x3 Cranial nerves: Yes Nystagmus not present Extrem: General: normal to inspection Psych: Mental Status: mental status grossly normal Affect: normal affect Attitude: cooperative Course Reevaluation(s) Reevaluation #1: I Discussed with patient that she has been found to have COVID and right upper lobe pneumonia. PAtient reports she feels really ill. She presented tachycardic and she still has slightly elevated heart rate so will obs for her pneumonia. Date: 08/27/24 Time: 16:00 Consultations Consultation #1: I Discussed case with Mya. She accepts to service for covid with pneumonia Date: 08/27/24 Time: 16:00 Vital Signs Vital signs: Vital Signs Temperature 98.5 F 08/27/24 13:49 Pulse Rate 114 H 08/27/24 13:49 Respiratory Rate 20 08/27/24 13:49 Blood Pressure 94/52 L 08/27/24 13:49 Pulse Oximetry 95 08/27/24 13:49 Oxygen Delivery Room Air 08/27/24 13:49 Temperature 98.5 F 08/27/24 13:49 Pulse Rate 91 08/27/24 16:29 Respiratory Rate 28 H 08/27/24 16:29 Blood Pressure 113/65 08/27/24 16:29 Pulse Oximetry 93 08/27/24 16:29 Oxygen Delivery Room Air 08/27/24 13:49 MDM - URI/Sore Throat Differential Diagnosis Differential diagnosis: Likely upper respiratory infection, viral infection, bronchitis, influenza and other (pneumonia) Medical Records Attestation: I reviewed the patient's medical records. Lab Data Attestation: I reviewed the patient's lab results. 08/27/24 14:06 08/27/24 14:06 Labs: Lab Results 08/27/24 08/27/24 Range/Units 14:06 15:11 WBC 9.1 (4.5-10.0) K/mm3 RBC 3.88 L (4.2-5.4) M/mm3 Hgb 13.5 (12.0-15.0) g/dL Hct 39.7 (37.0-47.0) % MCV 102.3 H (80-100) fl MCH 34.8 H (26-34) pg MCHC 34.0 (32-36) g/dl RDW 11.4 L (11.5-14.5) % Plt Count 312 (150-375) k/mm3 MPV 8.1 (7.4-10.4) fl Immature Gran % (Auto) 0.3 (0-0.5) % Neut % (Auto) 84.0 H (45.5-73.1) % Lymph % (Auto) 7.3 L (18.3-44.2) % Bee % (Auto) 7.1 (2.6-8.5) % Eos % (Auto) 0.7 (0-4.4) % Baso % (Auto) 0.6 (0.2-1.2) % Lymph # (Auto) 0.66 L (0.9-3.2) K/mm3 Bee # (Auto) 0.6 (0.1-0.6) K/mm3 Eos # (Auto) 0.1 (0-0.3) K/mm3 Baso # (Auto) 0.1 (0.0-0.1) K/mm3 Abs Immat Gran (auto) 0.03 (0.00-0.031) K/mm3 Absolute Neuts (auto) 7.6 H (1.3-6.7) K/mm3 Absolute Nucleated RBC 0.000 (0.0-0.012) K/mm3 Nucleated RBC % 0.0 (0.0-0.2) % Sodium 133 L (137-145) mmol/L Potassium 3.6 (3.4-5.0) mmol/L Chloride 99 (98-107) mmol/L Carbon Dioxide 25 (22-30) mmol/L Anion Gap 9 (4-12) mmol/L BUN 12 (7-17) mg/dL Creatinine 0.77 (0.7-1.0) mg/dL Estim Creat Clear Calc 45 ml/min Estimated GFR > 60 (59 - ) Glucose 102 (65-110) mg/dL Lactic Acid 0.8 (0.7-2.0) mmol/L Calcium 9.0 (8.4-10.2) mg/dL Total Bilirubin 0.5 (0.2-1.3) mg/dL AST 23 (14-36) U/L ALT 12 (6-35) U/L Alkaline Phosphatase 96 (38-126) U/L Total Protein 7.0 (6.3-8.2) g/dL Albumin 3.8 (3.5-5.1) g/dL Influenza A (RT-PCR) Negative (Negative) Influenza B (RT-PCR) Negative (Negative) RSV (RT-PCR) Negative (Negative) SARS-CoV-2 RNA (RT-PCR) Positive A (Negative) Imaging Data Radiologist's impression: ITS Impressions Chest X-Ray 08/27/24 14:12 IMPRESSION: Right upper lobe pneumonia. Follow-up to resolution is advised. ECG Data EKG #1: Attestation: I personally reviewed and interpreted this ECG as follows: ECG completion date: 08/27/24 ECG completion time: 13:58 EKG Interpretation: tachycardia, sinus rhythm, no ST changes and NL axis Critical Care Time Critical Care Time Critical Care Time: Yes Total Critical Care Time: 35 Discharge Plan Discharge Clinical Impression: COVID Pneumonia Qualifiers: Pneumonia type: due to unspecified organism Laterality: right Lung location: upper lobe of lung Qualified Code(s): J18.9 - Pneumonia, unspecified organism Patient Disposition: Still a Patient Condition: Stable
[2024-08-27 16:29] VITALS: BP 113/65; PULSE 91; RESP 28; O2SAT 93
[2024-08-27] MEDS: AZITHROMYCIN 500 MG/NS 250 ML 500 MG/250 ML BAG 250 MG IVPB (16:59)
--- NOTE | 2024-08-27 17:25 | P.HP_ITS ---
H&P: HPI History of Present Illness Date/Time: 08/27/24 17:25 Chief Complaint: Shortness of breath Narrative: 64-year-old female presents the hospital with shortness of breath. Said her symptoms have been going on for about 3 weeks. Patient states that she has progressively gotten weaker over the last 3 weeks. She states that she has severe cough is causing chest pain. She states that she has been unable to sleep due to having respiratory symptoms. Patient found to have COVID and chest x-ray shows right upper lobe pneumonia. Patient was hypertensive in the ED years been able to fluid bolus. Patient was started on IV antibiotics azithromycin and Rocephin. Patient still tachycardic and tachypneic out of proportion to the x-ray. Review of Systems 2 Review of Systems: 12 systems were reviewed and are negativ e except for as per HPI. [facility] Past Medical History Medical History Muscle contraction headache Intracranial aneurysm Left hand pain Right ankle pain Diffuse abdominal pain Abnormal MRI of abdomen RUQ abdominal mass Vaginal discharge Pelvic pain in female Anxiety disorder, unspecified Sore throat LLQ abdominal pain History of kidney stones Surgical History Surgical History H/O hernia repair 04/21/23 Open left sided trocar incisional hernia repair, no mesh. Dr. Salazar Wakler, [facility] of hernia repair 03/31/23 Robotic assisted right Spigelian hernia repair. Dr. Salazar Walker, [facility] H/O hernia repair 12/13/21 Left lower quadrant incisional hernia and repair of left femoral and obturator hernia repair. Dr. Salazar Walker, [facility] Hx of cholecystectomy H/O section Family History Family History Father Cancer Mother Dementia Sibling Dementia Mother Family history of Alzheimer's disease Sibling Family history of dementia Mother Patient's mother is , Onset Age: 62 Family history of Alzheimer's disease Father Patient's father is , Onset Age: 64 Other Family history of malignant neoplasm of ovary Social History Social History Smoking packs per day: 0.5 Smoking cigarettes per day: 10.0 Years smoked: 40 Smoking pack-years: 20.00 Smoking status: Current every day smoker Tobacco type: cigarettes Alcohol intake: current Drinks per week: 5 Alcohol use details: beer socially Substance use: never Do You Feel Safe in your Home?: Yes Lack of Transportation: No Lack of Food: Never True Current Housing: I Have Housing Concerned About Future Housing: No Difficulty Paying Gas/Electric Bills: No Difficulty Paying for Meds: No Currently Unemployed: No Education: Associate Degree Difficulty w/ Childcare or Family Care: No Living arrangements: with family Spiritual care concerns: No Meds Home Medications and Allergies Home Medications ?Medication ?Instructions ?Recorded ?Confirmed ?Type albuterol sulfate 90 mcg/actuation 1 puff inhalation Q4H PRN 12/03/21 08/27/24 History aerosol inhaler shortness of breath or wheezing varenicline tartrate 0.5 mg (11)-1 See Rx Instructions PO PER PKG DIR 12/09/23 08/27/24 Rx mg (42) tablets in a dose pack #53 ea acetaminophen 325 mg tablet 325 mg PO Q4-6H PRN fever or pain 12/11/23 08/27/24 History (Tylenol) diphenhydramine HCl 2 % topical gel 1 applic topical TID PRN skin 12/23/23 08/27/24 Rx irritation #103 mL ibuprofen 600 mg tablet 600 mg PO TID PRN fever or pain 01/20/24 08/27/24 History acetaminophen 500 mg capsule 1,000 mg (2 x 500 mg) PO Q6H PRN 04/15/24 08/27/24 Rx pain #30 caps diclofenac sodium 1 % topical gel 2 g topical QID PRN pain 08/27/24 08/27/24 History methocarbamol 750 mg tablet 750 mg PO Q8H PRN muscle spasm 08/27/24 08/27/24 History Allergies Allergy/AdvReac Type Severity Reaction Status Date / Time morphine Allergy Intermediate Hives Verified 08/27/24 13:28 tramadol Allergy Intermediate Hives Verified 08/27/24 13:28 Vital Signs Vital Signs - 24 hr 08/27/24 13:49 08/27/24 14:15 08/27/24 16:29 Temperature 98.5 F Pulse Rate 114 H 106 H 91 Respiratory Rate 20 15 28 H Blood Pressure 94/52 L 108/64 113/65 Pulse Oximetry 95 100 93 Oxygen Delivery Room Air Exam Narrative: General: well appearing, appears stated age. HEENT: normocephalic, atraumatic. Mucous membranes moist. EOMI, PERRLA, bilateral sclera anicteric, no conjunctival injection. Neck supple without JVD, lymphadenopathy, or bruit. Respiratory: clear to ascultation bilaterally. No rales/rhonic/wheezes. Cardiovascular: Regular rate and rhythm, normal S1-S2 upon ascultation. No murmurs, rubs, or clicks. PMI is nondisplaced, capillary refill less than 3 second. Abdomen: Soft, round, no pulsatile masses, nondistended and nontender. No rebound, no guarding. No CVA tenderness, no hepatosplenomegaly. Bowel sounds present to all four quadrants. No high pitch or tinkling sounds, resonant to percussion. Extremities: No cyanosis, clubbing, or edema present. Pulses are palpable 2/2. Active ROM to all four extremities. Neuro: Alert and orientated x 4. PERRLA. Cranial nerves 2-12 intact without focal deficit. Skin: Warm, dry, and intact, without rash, erythema, or lesion. Psych: pleasant, cooperative, normal speech, normal affect, no hallucinations, no dysarthia H&P: Results Labs Labs: Short CBC 08/27/24 Range/Units 14:06 WBC 9.1 (4.5-10.0) K/mm3 Hgb 13.5 (12.0-15.0) g/dL Hct 39.7 (37.0-47.0) % Plt Count 312 (150-375) k/mm3 BMP 08/27/24 14:06 Sodium 133 L Potassium 3.6 Chloride 99 Carbon Dioxide 25 BUN 12 Creatinine 0.77 Glucose 102 Calcium 9.0 Liver Function 08/27/24 Range/Units 14:06 Total Bilirubin 0.5 (0.2-1.3) mg/dL AST 23 (14-36) U/L ALT 12 (6-35) U/L Alkaline Phosphatase 96 (38-126) U/L Albumin 3.8 (3.5-5.1) g/dL Assessment and Plan Assessment and plan (1) COPD (chronic obstructive pulmonary disease): Qualifiers: COPD type: unspecified COPD Qualified Code(s): J44.9 - Chronic obstructive pulmonary disease, unspecified Code(s): J44.9 - Chronic obstructive pulmonary disease, unspecified Status: Chronic Assessment and Plan: Likely exacerbation secondary to pneumonia IV steroids x1 Prednisone starting tomorrow DuoNesarah p.r.n. (2) COVID: Code(s): U07.1 - COVID-19 Status: Acute Assessment and Plan: Of the window for remdesivir (3) Pneumonia: Code(s): J18.9 - Pneumonia, unspecified organism Status: Acute Assessment and Plan: IV Rocephin and azithromycin (4) Tachypnea: Code(s): R06.82 - Tachypnea, not elsewhere classified Status: Acute Assessment and Plan: Patient's tachypnea and tachycardia is out of proportion to chest x-ray will get a PE protocol Quality VTE Prophylaxis VTE prophylaxis: mechanical ordered and pharmacologic ordered Hospitalist MIPS Advance Care Plan I have confirmed that the patient's Advanced Care Plan is present, code status is documented, or surrogate decision maker is listed in patient medical record.: Yes Medication Reconciliation I have utilized all available resources to obtain, update and review the patients current medications (includes all prescriptions, OTC, herbals, cannabis, and nutritional supplements).: Yes
--- NOTE | 2024-08-27 18:55 | ADMGEN ---
This patient, Jackie Edwards, was admitted to 2 Medical Room 258-01. Patient/family oriented to hospital policies and general routines including ID bracelet, bed and alarms, visiting hours, pain management, procedures, bathroom and other care routines, personal items, smoking policy, room service/diet, and visiting hours. Information on how to activate the Rapid Response Team has been discussed. Patient/Family are encouraged to report perceived risks to care and to ask questions if they do not understand what they are told or what they should do. report received from eulogio in ED
[2024-08-27 18:56] VITALS: BMI 19.8
[2024-08-27] MEDS: methylPREDNISolone SOD SUCC 125 MG VIAL IV PUSH (19:06)
[2024-08-27] MEDS: SODIUM CHLORIDE 0.9% IV 1,000 ML 125 ML IV CONT (19:06)
[2024-08-27 20:47] VITALS: BP 115/60; PULSE 71; RESP 17; TEMP 36.5; O2SAT 95
[2024-08-27] MEDS: ENOXAPARIN 40 MG/0.4 ML SYRINGE SUB-Q (20:47)
[2024-08-27] MEDS: ACETAMINOPHEN 325 MG TABLET 650 MG PO (20:47)
[2024-08-27] MEDS: guaiFENesin/DEXTROMETHORPHAN 10 ML UDC PO (20:54)
[2024-08-27 21:09] LABS: D Dimer 0.41 ug/mL (<0.48)
--- NOTE | 2024-08-28 01:51 | PC.NURSE ---
Daylight Savings Time For Daylight Savings Time Ending in the Fall - Clocks are moved back. For Daylight Savings Time Beginning in the Spring - Clocks are moved ahead. For [facility], the time of change occurs at 0200 hrs. Time is taken from the ware server. This entry on the patient's chart recognizes the change in time reflected during documentation. Example: 2 entries for vital signs may be charted for 0200 hrs.
[2024-08-28 05:08] LABS: Basophils Percent Auto 0.4 % (0.2-1.2); Hematocrit 38.5 % (37.0-47.0); Hemoglobin 13.1 g/dL (12.0-15.0); Immature Granulocyte Absolute 0.02 K/mm3 (0.00-0.031); Immature Granulocyte Percent A 0.4 % (0-0.5); Lymphocytes Absolute Auto 0.63 K/mm3 (0.9-3.2); Lymphocytes Percent Auto 12.8 % (18.3-44.2); Mean Corpuscular Hemoglobin 35.2 pg (26-34); Mean Corpuscular Volume 103.5 fl (80-100); Mean Platelet Volume 8.3 fl (7.4-10.4); Monocytes Absolute Auto 0.1 K/mm3 (0.1-0.6); Monocytes Percent Auto 1.8 % (2.6-8.5); Neutrophils Absolute Auto 4.2 K/mm3 (1.3-6.7); Neutrophils Percent Auto 84.6 % (45.5-73.1); Platelet Count Result 291 k/mm3 (150-375); Red Blood Count 3.72 M/mm3 (4.2-5.4); Red Cell Distribution Width 11.2 % (11.5-14.5); White Blood Count 4.9 K/mm3 (4.5-10.0)
[2024-08-28 05:13] VITALS: BP 104/55; PULSE 88; RESP 17; TEMP 36.7; O2SAT 91
[2024-08-28 05:26] LABS: Alanine Aminotransferase 10 U/L (6-35); Albumin Level 3.2 g/dL (3.5-5.1); Alkaline Phosphatase 78 U/L (38-126); Anion Gap 8 mmol/L (4-12); Aspartate Amino Transferase 18 U/L (14-36); Bilirubin,Total < 0.1 mg/dL (0.2-1.3); Blood Urea Nitrogen 9 mg/dL (7-17); Calcium 8.6 mg/dL (8.4-10.2); Carbon Dioxide 24 mmol/L (22-30); Chloride 106 mmol/L (98-107); Estimated CRCL calculation 61 ml/min; Estimated Glomerular Filt Rate > 60; Glucose 135 mg/dL (65-110); Potassium 4.3 mmol/L (3.4-5.0); Sodium 138 mmol/L (137-145)
[2024-08-28] MEDS: guaiFENesin/DEXTROMETHORPHAN 10 ML UDC PO ×4 (05:52→17:57)
[2024-08-28] MEDS: ENOXAPARIN 40 MG/0.4 ML SYRINGE SUB-Q (08:59)
[2024-08-28] MEDS: predniSONE 20 MG TABLET 40 MG PO (08:59)
[2024-08-28] MEDS: SODIUM CHLORIDE 0.9% IV 1,000 ML 125 ML IV CONT ×2 (09:06→17:57)
--- NOTE | 2024-08-28 09:27 | P.PNIM_ITS ---
Progress Note: A&P Assessment and Plan (1) COVID: Code(s): U07.1 - COVID-19 Status: Acute (2) COPD (chronic obstructive pulmonary disease): Qualifiers: COPD type: unspecified COPD Qualified Code(s): J44.9 - Chronic obstructive pulmonary disease, unspecified Code(s): J44.9 - Chronic obstructive pulmonary disease, unspecified Status: Chronic (3) Pneumonia: Code(s): J18.9 - Pneumonia, unspecified organism Status: Acute (4) Smoker: Code(s): F17.200 - Nicotine dependence, unspecified, uncomplicated Status: Acute Plan (1) COPD (chronic obstructive pulmonary disease): Qualifiers: COPD type: unspecified COPD Qualified Code(s): J44.9 - Chronic obstructive pulmonary disease, unspecified Code(s): J44.9 - Chronic obstructive pulmonary disease, unspecified Status: Chronic Assessment and Plan: Likely exacerbation secondary to pneumonia IV steroids x1 DuoNebs p.r.n. Patient feels improving, but still has productive cough with thick phlegm. Shortness breath with med exertion Continue current treatment, (2) COVID: Code(s): U07.1 - COVID-19 Status: Acute Assessment and Plan: Of the window for remdesivir (3) Pneumonia: Code(s): J18.9 - Pneumonia, unspecified organism Status: Acute Assessment and Plan: IV Rocephin and azithromycin (4) Tachypnea: Code(s): R06.82 - Tachypnea, not elsewhere classified Status: Acute Assessment and Plan: Patient's tachypnea and tachycardia is out of proportion to chest x-ray will get a PE protocol Subjective Date/time seen: 08/28/24 09:27 Interval history: Patient is afebrile, blood pressure stable on the lower side Patient still has a cough with nausea vomit of thick phlegm. Patient feels better, still has dyspnea with minimal exertion. Exam Narrative: GENERAL: Pleasant, in no acute distress. Well-nourished. - EYES: EOMI. Anicteric. - HENT: Moist mucous membranes. - LUNGS: Coarse breath sound bilaterall y - CARDIOVASCULAR: Regular rate and rhyth m. No murmur. No JVD. - ABDOMEN: Soft, non-tender and non-dist ended. No palpable masses. - EXTREMITIES: No edema. Peripheral puls es 2+. Non-tender. - NEUROLOGIC: No focal neurological defi cits. CN II-XII grossly intact. - PSYCHIATRIC: Awake, Alert and oriented x 3. Appropriate mood and affect. - SKIN: No rashes or lesions. Warm. - LYMPH: No cervical lymphadenopathy. Objective Data Vital Signs Vital Signs: Vital Signs - 24 hr 08/27/24 13:49 08/27/24 14:15 08/27/24 16:29 Temperature 98.5 F Pulse Rate 114 H 106 H 91 Respiratory Rate 20 15 28 H Blood Pressure 94/52 L 108/64 113/65 Pulse Oximetry 95 100 93 Oxygen Delivery Room Air 08/27/24 20:00 08/27/24 20:47 08/28/24 05:13 Temperature 97.7 F 98.1 F Pulse Rate 71 88 Respiratory Rate 17 17 Blood Pressure 115/60 104/55 L Pulse Oximetry 95 91 Oxygen Delivery Room Air Intake/Output Intake/Output: Intake & Output 08/25/24 08/26/24 08/27/24 08/29/24 23:59 23:59 23:59 00:59 Intake Total 1300 1000 Balance 1300 1000 Meds/Results Medications: Active Medications Generic Name Dose Route Start Last Admin Trade Name Freq PRN Reason Stop Dose Admin Acetaminophen 650 mg 08/27/24 16:29 08/27/24 20:47 Acetaminophen 325 Mg Tablet PO 650 mg Q4H PRN Administration Mild Pain (1-3) or Fever Albuterol/Ipratropium 3 ml 08/27/24 17:29 Ipratropium 0.5 Mg/Albuterol Sulfate 2.5 Mg Ampul.Neb 3 Ml INHALATION Q6HRT PRN Shortness Of Breath Or Wheezing Cyclobenzaprine HCl 5 mg 08/27/24 20:18 Cyclobenzaprine Hcl 5 Mg Tablet PO Q8H PRN Muscle Spasm Enoxaparin Sodium 40 mg 08/27/24 20:20 08/28/24 08:59 Enoxaparin 40 Mg/0.4 Ml Syringe SUB-Q 40 mg DAILY MARY Administration Guaifenesin/Dextromethorphan 10 ml 08/27/24 21:00 08/28/24 09:00 Guaifenesin/Dextromethorphan 10 Ml Udc PO 10 ml Q4HR MARY Administration Ceftriaxone Sodium 1 gm in 50 mls @ 100 mls/hr 08/28/24 17:00 Rocephin 1 Gm/Ns 50 Ml IVPB Q24H MARY Azithromycin 500 mg in 250 mls @ 250 mls/hr 08/28/24 17:00 Zithromax IVPB Q24H COUNT INCLUDES THE [facility] Sodium Chloride 1,000 mls @ 125 mls/hr 08/27/24 16:30 08/28/24 09:06 Normal Saline Iv IV CONT 125 mls/hr .Q8H MARY Administration Prednisone 40 mg 08/28/24 08:00 08/28/24 08:59 Prednisone 20 Mg Tablet PO 09/02/24 07:59 40 mg DAILY@0800 MARY Administration Promethazine HCl 12.5 mg 08/27/24 16:29 Promethazine Hcl 25 Mg/Ml Ampul IV PUSH Q6H PRN Nausea Radiology Results: ITS Impressions Chest X-Ray 08/27/24 14:12 IMPRESSION: Right upper lobe pneumonia. Follow-up to resolution is advised. Chest CTA 08/28/24 06:30 Impression: No evidence of pulmonary embolus, aortic dissection, or aortic aneurysm. Right upper lobe pneumonia with minimal involvement in the left upper lobe. Labs Labs: Laboratory Results - last 24 hr 08/27/24 08/27/24 08/27/24 14:06 15:11 20:45 WBC 9.1 RBC 3.88 L Hgb 13.5 Hct 39.7 MCV 102.3 H MCH 34.8 H MCHC 34.0 RDW 11.4 L Plt Count 312 MPV 8.1 Immature Gran % (Auto) 0.3 Neut % (Auto) 84.0 H Lymph % (Auto) 7.3 L [place] % (Auto) 7.1 Eos % (Auto) 0.7 Baso % (Auto) 0.6 Lymph # (Auto) 0.66 L [place] # (Auto) 0.6 Eos # (Auto) 0.1 Baso # (Auto) 0.1 Abs Immat Gran (auto) 0.03 Absolute Neuts (auto) 7.6 H Absolute Nucleated RBC 0.000 Nucleated RBC % 0.0 D-Dimer 0.41 Sodium 133 L Potassium 3.6 Chloride 99 Carbon Dioxide 25 Anion Gap 9 BUN 12 Creatinine 0.77 Estim Creat Clear Calc 45 Estimated GFR > 60 Glucose 102 Lactic Acid 0.8 Calcium 9.0 Total Bilirubin 0.5 AST 23 ALT 12 Alkaline Phosphatase 96 Total Protein 7.0 Albumin 3.8 Influenza A (RT-PCR) Negative Influenza B (RT-PCR) Negative RSV (RT-PCR) Negative SARS-CoV-2 RNA (RT-PCR) Positive A 08/28/24 04:40 WBC 4.9 RBC 3.72 L Hgb 13.1 Hct 38.5 MCV 103.5 H MCH 35.2 H MCHC 34.0 RDW 11.2 L Plt Count 291 MPV 8.3 Immature Gran % (Auto) 0.4 Neut % (Auto) 84.6 H Lymph % (Auto) 12.8 L [place] % (Auto) 1.8 L Eos % (Auto) 0.0 Baso % (Auto) 0.4 Lymph # (Auto) 0.63 L [place] # (Auto) 0.1 Eos # (Auto) 0.0 Baso # (Auto) 0.0 Abs Immat Gran (auto) 0.02 Absolute Neuts (auto) 4.2 Absolute Nucleated RBC 0.000 Nucleated RBC % 0.0 D-Dimer Sodium 138 Potassium 4.3 Chloride 106 Carbon Dioxide 24 Anion Gap 8 BUN 9 Creatinine 0.57 L Estim Creat Clear Calc 61 Estimated GFR > 60 Glucose 135 H Lactic Acid Calcium 8.6 Total Bilirubin < 0.1 L AST 18 ALT 10 Alkaline Phosphatase 78 Total Protein 6.0 L Albumin 3.2 L Influenza A (RT-PCR) Influenza B (RT-PCR) RSV (RT-PCR) SARS-CoV-2 RNA (RT-PCR)
[2024-08-28 15:14] VITALS: BP 99/55; PULSE 73; RESP 18; TEMP 36.6; O2SAT 96
[2024-08-28 19:41] VITALS: BP 106/50; PULSE 66; RESP 18; TEMP 36.6; O2SAT 96
[2024-08-28] MEDS: AZITHROMYCIN 500 MG/NS 250 ML 500 MG/250 ML BAG 250 MG IVPB (19:43)
[2024-08-29] MEDS: guaiFENesin/DEXTROMETHORPHAN 10 ML UDC PO ×4 (01:11→17:10)
[2024-08-29] MEDS: SODIUM CHLORIDE 0.9% IV 1,000 ML 125 ML IV CONT ×2 (04:37→17:11)
[2024-08-29 05:45] VITALS: BP 118/64; PULSE 56; RESP 20; TEMP 36.6; O2SAT 94
[2024-08-29 08:53] LABS: Basophils Percent Auto 0.4 % (0.2-1.2); Hematocrit 35.5 % (37.0-47.0); Hemoglobin 11.8 g/dL (12.0-15.0); Immature Granulocyte Absolute 0.02 K/mm3 (0.00-0.031); Immature Granulocyte Percent A 0.2 % (0-0.5); Lymphocytes Absolute Auto 2.85 K/mm3 (0.9-3.2); Mean Corpuscular HGB Conc 33.2 g/dl (32-36); Mean Corpuscular Hemoglobin 34.8 pg (26-34); Mean Corpuscular Volume 104.7 fl (80-100); Mean Platelet Volume 8.4 fl (7.4-10.4); Monocytes Absolute Auto 0.5 K/mm3 (0.1-0.6); Monocytes Percent Auto 6.2 % (2.6-8.5); Neutrophils Percent Auto 59.2 % (45.5-73.1); Platelet Count Result 263 k/mm3 (150-375); Red Blood Count 3.39 M/mm3 (4.2-5.4); Red Cell Distribution Width 11.5 % (11.5-14.5); White Blood Count 8.4 K/mm3 (4.5-10.0)
[2024-08-29] MEDS: predniSONE 20 MG TABLET 40 MG PO (09:02)
[2024-08-29] MEDS: ENOXAPARIN 40 MG/0.4 ML SYRINGE SUB-Q (09:03)
[2024-08-29 09:19] LABS: Alanine Aminotransferase 10 U/L (6-35); Albumin Level 2.8 g/dL (3.5-5.1); Alkaline Phosphatase 66 U/L (38-126); Anion Gap 4 mmol/L (4-12); Aspartate Amino Transferase 16 U/L (14-36); Bilirubin,Total < 0.1 mg/dL (0.2-1.3); Blood Urea Nitrogen 9 mg/dL (7-17); Calcium 8.2 mg/dL (8.4-10.2); Carbon Dioxide 24 mmol/L (22-30); Chloride 113 mmol/L (98-107); Estimated CRCL calculation 53 ml/min; Estimated Glomerular Filt Rate > 60; Glucose 85 mg/dL (65-110); Potassium 3.4 mmol/L (3.4-5.0); Sodium 141 mmol/L (137-145)
--- NOTE | 2024-08-29 09:50 | P.PNIM_ITS ---
Progress Note: A&P Assessment and Plan (1) COVID: Code(s): U07.1 - COVID-19 Status: Acute (2) COPD (chronic obstructive pulmonary disease): Qualifiers: COPD type: unspecified COPD Qualified Code(s): J44.9 - Chronic obstructive pulmonary disease, unspecified Code(s): J44.9 - Chronic obstructive pulmonary disease, unspecified Status: Chronic (3) Pneumonia: Code(s): J18.9 - Pneumonia, unspecified organism Status: Acute (4) Smoker: Code(s): F17.200 - Nicotine dependence, unspecified, uncomplicated Status: Acute Plan (1) COPD (chronic obstructive pulmonary disease): Qualifiers: COPD type: unspecified COPD Qualified Code(s): J44.9 - Chronic obstructive pulmonary disease, unspecified Code(s): J44.9 - Chronic obstructive pulmonary disease, unspecified Status: Chronic Assessment and Plan: Likely exacerbation secondary to pneumonia IV steroids x1 DuoNebs p.r.n. Patient feels improving, but still has productive cough with thick phlegm. Shortness breath with mild exertion Symptoms improves but slowly Continue current treatment, add benzonatate for cough control (2) COVID: Code(s): U07.1 - COVID-19 Status: Acute Assessment and Plan: Of the window for remdesivir (3) Pneumonia: Code(s): J18.9 - Pneumonia, unspecified organism Status: Acute Assessment and Plan: IV Rocephin and azithromycin (4) Tachypnea: Code(s): R06.82 - Tachypnea, not elsewhere classified Status: Acute Assessment and Plan: Patient's tachypnea and tachycardia is out of proportion to chest x-ray will get a PE protocol Subjective Date/time seen: 08/29/24 09:50 Interval history: Patient is afebrile, blood pressure stable on the lower side Patient still has a cough with nausea vomit of thick phlegm. Symptoms improved slowly. Exam Narrative: GENERAL: Pleasant, in no acute distress. Well-nourished. - EYES: EOMI. Anicteric. - HENT: Moist mucous membranes. - LUNGS: Coarse breath sound bilaterall y - CARDIOVASCULAR: Regular rate and rhyth m. No murmur. No JVD. - ABDOMEN: Soft, non-tender and non-dist ended. No palpable masses. - EXTREMITIES: No edema. Peripheral puls es 2+. Non-tender. - NEUROLOGIC: No focal neurological defi cits. CN II-XII grossly intact. - PSYCHIATRIC: Awake, Alert and oriented x 3. Appropriate mood and affect. - SKIN: No rashes or lesions. Warm. - LYMPH: No cervical lymphadenopathy. Objective Data Vital Signs Vital Signs: Vital Signs - 24 hr 08/28/24 15:14 08/28/24 19:41 08/29/24 05:45 Temperature 97.8 F 98 F 97.9 F Pulse Rate 73 66 56 L Respiratory Rate 18 18 20 Blood Pressure 99/55 L 106/50 L 118/64 Pulse Oximetry 96 96 94 Intake/Output Intake/Output: Intake & Output 08/26/24 08/27/24 08/29/24 08/29/24 23:59 23:59 00:59 23:59 Intake Total 1300 2880 1300 Balance 1300 2880 1300 Meds/Results Medications: Active Medications Generic Name Dose Route Start Last Admin Trade Name Freq PRN Reason Stop Dose Admin Acetaminophen 650 mg 08/27/24 16:29 08/27/24 20:47 Acetaminophen 325 Mg Tablet PO 650 mg Q4H PRN Administration Mild Pain (1-3) or Fever Albuterol/Ipratropium 3 ml 08/27/24 17:29 Ipratropium 0.5 Mg/Albuterol Sulfate 2.5 Mg Ampul.Neb 3 Ml INHALATION Q6HRT PRN Shortness Of Breath Or Wheezing Cyclobenzaprine HCl 5 mg 08/27/24 20:18 Cyclobenzaprine Hcl 5 Mg Tablet PO Q8H PRN Muscle Spasm Enoxaparin Sodium 40 mg 08/27/24 20:20 08/29/24 09:03 Enoxaparin 40 Mg/0.4 Ml Syringe SUB-Q 40 mg DAILY MARY Administration Guaifenesin/Dextromethorphan 10 ml 08/27/24 21:00 08/29/24 09:02 Guaifenesin/Dextromethorphan 10 Ml Udc PO 10 ml Q4HR MARY Administration Ceftriaxone Sodium 1 gm in 50 mls @ 100 mls/hr 08/28/24 17:00 08/28/24 18:27 Rocephin 1 Gm/Ns 50 Ml IVPB Infused Q24H MARY Infusion Azithromycin 500 mg in 250 mls @ 250 mls/hr 08/28/24 17:00 08/28/24 20:40 Zithromax IVPB Infused Q24H MARY Infusion Sodium Chloride 1,000 mls @ 125 mls/hr 08/27/24 16:30 08/29/24 04:37 Normal Saline Iv IV CONT 125 mls/hr .Q8H MARY Administration Prednisone 40 mg 08/28/24 08:00 08/29/24 09:02 Prednisone 20 Mg Tablet PO 09/02/24 07:59 40 mg DAILY@0800 MARY Administration Promethazine HCl 12.5 mg 08/27/24 16:29 Promethazine Hcl 25 Mg/Ml Ampul IV PUSH Q6H PRN Nausea Radiology Results: ITS Impressions Chest X-Ray 08/27/24 14:12 IMPRESSION: Right upper lobe pneumonia. Follow-up to resolution is advised. Chest CTA 08/28/24 06:30 Impression: No evidence of pulmonary embolus, aortic dissection, or aortic aneurysm. Right upper lobe pneumonia with minimal involvement in the left upper lobe. Labs Labs: Laboratory Results - last 24 hr 08/29/24 08:25 WBC 8.4 RBC 3.39 L Hgb 11.8 L Hct 35.5 L MCV 104.7 H MCH 34.8 H MCHC 33.2 RDW 11.5 Plt Count 263 MPV 8.4 Immature Gran % (Auto) 0.2 Neut % (Auto) 59.2 Lymph % (Auto) 34.0 [place] % (Auto) 6.2 Eos % (Auto) 0.0 Baso % (Auto) 0.4 Lymph # (Auto) 2.85 [place] # (Auto) 0.5 Eos # (Auto) 0.0 Baso # (Auto) 0.0 Abs Immat Gran (auto) 0.02 Absolute Neuts (auto) 5.0 Absolute Nucleated RBC 0.000 Nucleated RBC % 0.0 Sodium 141 Potassium 3.4 Chloride 113 H Carbon Dioxide 24 Anion Gap 4 BUN 9 Creatinine 0.67 L Estim Creat Clear Calc 53 Estimated GFR > 60 Glucose 85 Calcium 8.2 L Total Bilirubin < 0.1 L AST 16 ALT 10 Alkaline Phosphatase 66 Total Protein 6.0 L Albumin 2.8 L
[2024-08-29 14:00] VITALS: BP 119/52; PULSE 63; RESP 22; TEMP 36.4; O2SAT 97
[2024-08-29] MEDS: BENZONATATE 100 MG CAPSULE 200 MG PO (17:09)
[2024-08-29] MEDS: AZITHROMYCIN 500 MG/NS 250 ML 500 MG/250 ML BAG 250 MG IVPB (18:02)
[2024-08-29 20:49] VITALS: BP 120/68; PULSE 55; RESP 18; TEMP 36.5; O2SAT 94
[2024-08-30] MEDS: SODIUM CHLORIDE 0.9% IV 1,000 ML 125 ML IV CONT (04:14)
[2024-08-30 04:31] VITALS: BP 146/75; PULSE 50; RESP 18; TEMP 36.5; O2SAT 96
[2024-08-30] MEDS: predniSONE 20 MG TABLET 40 MG PO (10:02)
[2024-08-30] MEDS: BENZONATATE 100 MG CAPSULE 200 MG PO ×3 (10:02→17:18)
--- NOTE | 2024-08-30 11:00 | P.PNIM_ITS ---
Progress Note: A&P Assessment and Plan (1) COVID: Code(s): U07.1 - COVID-19 Status: Acute (2) COPD (chronic obstructive pulmonary disease): Qualifiers: COPD type: unspecified COPD Qualified Code(s): J44.9 - Chronic obstructive pulmonary disease, unspecified Code(s): J44.9 - Chronic obstructive pulmonary disease, unspecified Status: Chronic (3) Pneumonia: Code(s): J18.9 - Pneumonia, unspecified organism Status: Acute (4) Smoker: Code(s): F17.200 - Nicotine dependence, unspecified, uncomplicated Status: Acute Plan (1) COPD exacerbation (chronic obstructive pulmonary disease): Qualifiers: COPD type: unspecified COPD Qualified Code(s): J44.9 - Chronic obstructive pulmonary disease, unspecified Code(s): J44.9 - Chronic obstructive pulmonary disease, unspecified Status: Chronic Assessment and Plan: Likely exacerbation secondary to pneumonia CT shows No evidence of pulmonary embolus, aortic dissection, or aortic aneurysm.right upper lobe pneumonia with minimal involvement in the left upper lobe. IV steroids x1 now on prednisone DuoNebs p.r.n. Patient feels improving, but still has productive cough with thick phlegm. Shortness breath with mild exertion Symptoms improves but slowly Continue current treatment, add benzonatate for cough control (2) COVID: Code(s): U07.1 - COVID-19 Status: Acute Assessment and Plan: Of the window for remdesivir (3) Pneumonia: Code(s): J18.9 - Pneumonia, unspecified organism Status: Acute Assessment and Plan: Continue IV Rocephin and azithromycin that were started on August 28 (4) Tachypnea: Code(s): R06.82 - Tachypnea, not elsewhere classified Status: Acute Assessment and Plan: Patient's tachypnea and tachycardia resolves Subjective Date/time seen: 08/30/24 11:00 Interval history: Patient is afebrile, blood pressure stable on the lower side Patient still has a cough with thick phlegm. Dyspnea with exertion. Patient denies nausea vomiting diarrhea Patient feels better today Exam Narrative: GENERAL: Pleasant, in no acute distress. Well-nourished. - EYES: EOMI. Anicteric. - HENT: Moist mucous membranes. - LUNGS: Coarse breath sound bilaterall y, but improving - CARDIOVASCULAR: Regular rate and rhyth m. No murmur. No JVD. - ABDOMEN: Soft, non-tender and non-dist ended. No palpable masses. - EXTREMITIES: No edema. Peripheral puls es 2+. Non-tender. - NEUROLOGIC: No focal neurological defi cits. CN II-XII grossly intact. - PSYCHIATRIC: Awake, Alert and oriented x 3. Appropriate mood and affect. - SKIN: No rashes or lesions. Warm. - LYMPH: No cervical lymphadenopathy. Objective Data Vital Signs Vital Signs: Vital Signs - 24 hr 08/29/24 14:00 08/29/24 20:00 08/29/24 20:49 Temperature 97.5 F L 97.7 F Pulse Rate 63 55 L Respiratory Rate 22 H 18 Blood Pressure 119/52 L 120/68 Pulse Oximetry 97 94 Oxygen Delivery Room Air 08/30/24 04:31 08/30/24 10:18 Temperature 97.7 F Pulse Rate 50 L Respiratory Rate 18 Blood Pressure 146/75 H Pulse Oximetry 96 Oxygen Delivery Room Air Intake/Output Intake/Output: Intake & Output 08/27/24 08/29/24 08/29/24 08/30/24 23:59 00:59 23:59 23:59 Intake Total 1300 2880 3520 1630 Balance 1300 2880 3520 1630 Meds/Results Medications: Active Medications Generic Name Dose Route Start Last Admin Trade Name Freq PRN Reason Stop Dose Admin Acetaminophen 650 mg 08/27/24 16:29 08/27/24 20:47 Acetaminophen 325 Mg Tablet PO 650 mg Q4H PRN Administration Mild Pain (1-3) or Fever Albuterol/Ipratropium 3 ml 08/27/24 17:29 Ipratropium 0.5 Mg/Albuterol Sulfate 2.5 Mg Ampul.Neb 3 Ml INHALATION Q6HRT PRN Shortness Of Breath Or Wheezing Benzonatate 200 mg 08/29/24 17:00 08/30/24 10:02 Benzonatate 100 Mg Capsule PO 200 mg TID MARY Administration Cyclobenzaprine HCl 5 mg 08/27/24 20:18 Cyclobenzaprine Hcl 5 Mg Tablet PO Q8H PRN Muscle Spasm Enoxaparin Sodium 40 mg 08/27/24 20:20 08/30/24 10:02 Enoxaparin 40 Mg/0.4 Ml Syringe SUB-Q Not Given DAILY MARY Guaifenesin/Dextromethorphan 10 ml 08/27/24 21:00 08/30/24 10:02 Guaifenesin/Dextromethorphan 10 Ml Udc PO Not Given Q4HR MARY Ceftriaxone Sodium 1 gm in 50 mls @ 100 mls/hr 08/28/24 17:00 08/29/24 17:09 Rocephin 1 Gm/Ns 50 Ml IVPB 100 mls/hr Q24H MAYR Administration Azithromycin 500 mg in 250 mls @ 250 mls/hr 08/28/24 17:00 08/29/24 18:02 Zithromax IVPB 250 mls/hr Q24H MARY Administration Sodium Chloride 1,000 mls @ 125 mls/hr 08/27/24 16:30 08/30/24 04:14 Normal Saline Iv IV CONT 125 mls/hr .Q8H MARY Administration Prednisone 40 mg 08/28/24 08:00 08/30/24 10:02 Prednisone 20 Mg Tablet PO 09/02/24 07:59 40 mg DAILY@0800 MARY Administration Promethazine HCl 12.5 mg 08/27/24 16:29 Promethazine Hcl 25 Mg/Ml Ampul IV PUSH Q6H PRN Nausea Radiology Results: ITS Impressions Chest X-Ray 08/27/24 14:12 IMPRESSION: Right upper lobe pneumonia. Follow-up to resolution is advised. Chest CTA 08/28/24 06:30 Impression: No evidence of pulmonary embolus, aortic dissection, or aortic aneurysm. Right upper lobe pneumonia with minimal involvement in the left upper lobe.
[2024-08-30 14:00] VITALS: BP 118/55; PULSE 96; RESP 18; TEMP 36.5; O2SAT 98
[2024-08-30] MEDS: AZITHROMYCIN 500 MG/NS 250 ML 500 MG/250 ML BAG 250 MG IVPB (18:04)
[2024-08-30 20:00] VITALS: PULSE 85; RESP 18; O2SAT 97
[2024-08-30 20:09] VITALS: BP 121/63; PULSE 85; RESP 18; TEMP 36.5; O2SAT 97
[2024-08-30] MEDS: guaiFENesin/DEXTROMETHORPHAN 10 ML UDC PO (20:59)
[2024-08-31 03:59] VITALS: BP 153/71; PULSE 64; RESP 18; TEMP 36.9; O2SAT 96
--- NOTE | 2024-08-31 08:20 | P.PNIM_ITS ---
Progress Note: A&P Assessment and Plan (1) COVID: Code(s): U07.1 - COVID-19 Status: Acute (2) COPD (chronic obstructive pulmonary disease): Qualifiers: COPD type: unspecified COPD Qualified Code(s): J44.9 - Chronic obstructive pulmonary disease, unspecified Code(s): J44.9 - Chronic obstructive pulmonary disease, unspecified Status: Chronic (3) Pneumonia: Code(s): J18.9 - Pneumonia, unspecified organism Status: Acute (4) Smoker: Code(s): F17.200 - Nicotine dependence, unspecified, uncomplicated Status: Acute Plan (1) COPD exacerbation (chronic obstructive pulmonary disease): Qualifiers: COPD type: unspecified COPD Qualified Code(s): J44.9 - Chronic obstructive pulmonary disease, unspecified Code(s): J44.9 - Chronic obstructive pulmonary disease, unspecified Status: Chronic Assessment and Plan: Likely exacerbation secondary to pneumonia CT shows No evidence of pulmonary embolus, aortic dissection, or aortic aneurysm.right upper lobe pneumonia with minimal involvement in the left upper lobe. IV steroids x1 now on prednisone DuoNebs p.r.n. Patient feels improving, but still has productive cough with thick phlegm. Shortness breath with mild exertion Symptoms improves but slowly Continue current treatment, add benzonatate for cough control Patient is on room air, resolved continue bronchodilators (2) COVID: Code(s): U07.1 - COVID-19 Status: Acute Assessment and Plan: Of the window for remdesivir (3) Pneumonia: Code(s): J18.9 - Pneumonia, unspecified organism Status: Acute Assessment and Plan: Received IV Rocephin and azithromycin that were started on August 28 Transition to Augmentin today and continue 3 more days per ID pharmacist recommendation (4) Tachypnea: Code(s): R06.82 - Tachypnea, not elsewhere classified Status: Acute Assessment and Plan: Patient's tachypnea and tachycardia resolves Subjective Date/time seen: 08/31/24 08:20 Interval history: Patient feels comfortable, denies chest pain shortness breast, nausea vomiting abdomen pain, nausea vomiting Exam Narrative: GENERAL: Pleasant, in no acute distress. Well-nourished. - EYES: EOMI. Anicteric. - HENT: Moist mucous membranes. - LUNGS: Clear to auscultation bilateral ly, no wheezing, rhonchi, or rales. - CARDIOVASCULAR: Regular rate and rhyth m. No murmur. No JVD. - ABDOMEN: Soft, non-tender and non-dist ended. No palpable masses. - EXTREMITIES: No edema. Peripheral puls es 2+. Non-tender. - NEUROLOGIC: No focal neurological defi cits. CN II-XII grossly intact. - PSYCHIATRIC: Awake, Alert and oriented x 3. Appropriate mood and affect. - SKIN: No rashes or lesions. Warm. - LYMPH: No cervical lymphadenopathy. Objective Data Vital Signs Vital Signs: Vital Signs - 24 hr 08/30/24 10:18 08/30/24 14:00 08/30/24 20:00 Temperature 97.7 F Pulse Rate 96 85 Respiratory Rate 18 18 Blood Pressure 118/55 L Pulse Oximetry 98 97 Oxygen Delivery Room Air Room Air 08/30/24 20:09 08/31/24 03:59 Temperature 97.7 F 98.4 F Pulse Rate 85 64 Respiratory Rate 18 18 Blood Pressure 121/63 153/71 H Pulse Oximetry 97 96 Oxygen Delivery Intake/Output Intake/Output: Intake & Output 08/29/24 08/29/24 08/30/24 08/31/24 00:59 23:59 23:59 23:59 Intake Total 2880 3820 3410 490 Balance 2880 3820 3410 490 Meds/Results Medications: Active Medications Generic Name Dose Route Start Last Admin Trade Name Freq PRN Reason Stop Dose Admin Acetaminophen 650 mg 08/27/24 16:29 08/27/24 20:47 Acetaminophen 325 Mg Tablet PO 650 mg Q4H PRN Administration Mild Pain (1-3) or Fever Albuterol/Ipratropium 3 ml 08/27/24 17:29 Ipratropium 0.5 Mg/Albuterol Sulfate 2.5 Mg Ampul.Neb 3 Ml INHALATION Q6HRT PRN Shortness Of Breath Or Wheezing Benzonatate 200 mg 08/29/24 17:00 08/30/24 17:18 Benzonatate 100 Mg Capsule PO 200 mg TID MARY Administration Cyclobenzaprine HCl 5 mg 08/27/24 20:18 Cyclobenzaprine Hcl 5 Mg Tablet PO Q8H PRN Muscle Spasm Enoxaparin Sodium 40 mg 08/27/24 20:20 08/30/24 10:02 Enoxaparin 40 Mg/0.4 Ml Syringe SUB-Q Not Given DAILY MARY Guaifenesin/Dextromethorphan 10 ml 08/27/24 21:00 08/31/24 04:39 Guaifenesin/Dextromethorphan 10 Ml Udc PO Not Given Q4HR MARY Ceftriaxone Sodium 1 gm in 50 mls @ 100 mls/hr 08/28/24 17:00 08/30/24 17:17 Rocephin 1 Gm/Ns 50 Ml IVPB 100 mls/hr Q24H MARY Administration Azithromycin 500 mg in 250 mls @ 250 mls/hr 08/28/24 17:00 08/30/24 19:04 Zithromax IVPB Infused Q24H MARY Infusion Prednisone 40 mg 08/28/24 08:00 08/30/24 10:02 Prednisone 20 Mg Tablet PO 09/02/24 07:59 40 mg DAILY@0800 MARY Administration Promethazine HCl 12.5 mg 08/27/24 16:29 Promethazine Hcl 25 Mg/Ml Ampul IV PUSH Q6H PRN Nausea Radiology Results: ITS Impressions Chest X-Ray 08/27/24 14:12 IMPRESSION: Right upper lobe pneumonia. Follow-up to resolution is advised. Chest CTA 08/28/24 06:30 Impression: No evidence of pulmonary embolus, aortic dissection, or aortic aneurysm. Right upper lobe pneumonia with minimal involvement in the left upper lobe.
[2024-08-31] MEDS: predniSONE 20 MG TABLET 40 MG PO (09:40)
[2024-08-31] MEDS: BENZONATATE 100 MG CAPSULE 200 MG PO (09:41)
[2024-08-31] MEDS: guaiFENesin/DEXTROMETHORPHAN 10 ML UDC PO (09:41)
[2024-08-31] MEDS: ENOXAPARIN 40 MG/0.4 ML SYRINGE SUB-Q (09:41)
--- NOTE | 2024-08-31 11:39 | P.DS_ITS ---
DS: Admitting Diagnosis Discharge Date 08/31/24 Admitting Diagnosis (1) COVID: Code(s): U07.1 - COVID-19 Status: Acute (2) COPD (chronic obstructive pulmonary disease): Qualifiers: COPD type: unspecified COPD Qualified Code(s): J44.9 - Chronic obstructive pulmonary disease, unspecified Code(s): J44.9 - Chronic obstructive pulmonary disease, unspecified Status: Chronic (3) Pneumonia: Code(s): J18.9 - Pneumonia, unspecified organism Status: Acute (4) Smoker: Code(s): F17.200 - Nicotine dependence, unspecified, uncomplicated Status: Acute DS: Discharge Diagnosis Discharge Diagnosis (1) COVID: Code(s): U07.1 - COVID-19 Status: Acute (2) COPD (chronic obstructive pulmonary disease): Qualifiers: COPD type: unspecified COPD Qualified Code(s): J44.9 - Chronic obstructive pulmonary disease, unspecified Code(s): J44.9 - Chronic obstructive pulmonary disease, unspecified Status: Chronic (3) Pneumonia: Code(s): J18.9 - Pneumonia, unspecified organism Status: Acute (4) Smoker: Code(s): F17.200 - Nicotine dependence, unspecified, uncomplicated Status: Acute DS: Summary Hospital Course Hospital Course: Per H&P, 64-year-old female presents the hospital with shortness of breath. Said her symptoms have been going on for about 3 weeks. Patient states that she has progressively gotten weaker over the last 3 weeks. She states that she has severe cough is causing chest pain. She states that she has been unable to sleep due to having respiratory symptoms. Patient found to have COVID and chest x-ray shows right upper lobe pneumonia. Patient was hypertensive in the ED years been able to fluid bolus. Patient was started on IV antibiotics azithromycin and Rocephin. Patient still tachycardic and tachypneic out of proportion to the x-ray. The following med issues have been addressed during hospitalization (1) COPD exacerbation (chronic obstructive pulmonary disease): Qualifiers: COPD type: unspecified COPD Qualified Code(s): J44.9 - Chronic obstructive pulmonary disease, unspecified Code(s): J44.9 - Chronic obstructive pulmonary disease, unspecified Status: Chronic Assessment and Plan: Likely exacerbation secondary to pneumonia CT shows No evidence of pulmonary embolus, aortic dissection, or aortic aneurysm.right upper lobe pneumonia with minimal involvement in the left upper lobe. IV steroids x1 now on prednisone DuoNebs p.r.n. Patient feels improving, but still has productive cough with thick phlegm. Shortness breath with mild exertion Symptoms improves but slowly Continue current treatment, add benzonatate for cough control Patient is on room air, resolved continue bronchodilators (2) COVID: Code(s): U07.1 - COVID-19 Status: Acute Assessment and Plan: Of the window for remdesivir (3) Pneumonia: Code(s): J18.9 - Pneumonia, unspecified organism Status: Acute Assessment and Plan: Received IV Rocephin and azithromycin that were started on August 28 Transition to Augmentin today and continue 3 more days per ID pharmacist recommendation (4) Tachypnea: Code(s): R06.82 - Tachypnea, not elsewhere classified Status: Acute Assessment and Plan: Patient's tachypnea and tachycardia resolves Time Spent with Patient Time attestation: Total time spent providing and/or coordinating discharge services: Exam Narrative: GENERAL: Pleasant, in no acute distress. Well-nourished. - EYES: EOMI. Anicteric. - HENT: Moist mucous membranes. - LUNGS: Clear to auscultation bilateral ly, no wheezing, rhonchi, or rales. - CARDIOVASCULAR: Regular rate and rhyth m. No murmur. No JVD. - ABDOMEN: Soft, non-tender and non-dist ended. No palpable masses. - EXTREMITIES: No edema. Peripheral puls es 2+. Non-tender. - NEUROLOGIC: No focal neurological defi cits. CN II-XII grossly intact. - PSYCHIATRIC: Awake, Alert and oriented x 3. Appropriate mood and affect. - SKIN: No rashes or lesions. Warm. - LYMPH: No cervical lymphadenopathy. DS: Data Data Completed and Pending Labs on day of discharge: Preliminary micro results at discharge 08/27/24 15:11 Blood Culture - Preliminary Blood 08/27/24 15:24 Blood Culture - Preliminary Blood Discharge Plan Discharge Attending physician on discharge: Isai Dunaway Consulting providers: Mya Lawson Discharging Clinician: Isai Dunaway Anticipated Discharge Date/Time: 08/31/24 11:30 Patient Disposition: Home, Self-Care Activity: as tolerated Diet: as tolerated and heart healthy Discharge Instructions: Return back to work on Thursday Patient Instructions: Antibiotic Form Patient Language: Finnish Stand Alone Forms: General Discharge Information, Work/School Release IP Follow-up/Referrals: Yaneth Wolf, DO [Primary Care Provider] - (See PCP in 1 week) Discharge Medications: New benzonatate 100 mg Capsule 200 mg PO TID PRN (Reason: Cough) Qty: 60 0RF amoxicillin-pot clavulanate [Augmentin] 500-125 mg tablet 1 tablet PO Q12H 3 Days Qty: 6 0RF Continued diphenhydramine HCl 2 % gel 1 applic topical TID PRN (Reason: skin irritation) Qty: 103 0RF varenicline tartrate 0.5 mg (11)- 1 mg (42) tablets,dose pack See Rx Instructions PO PER PKG DIR Qty: 53 0RF Rx Instructions: PO PER PKG DIR acetaminophen [Tylenol] 325 mg tablet 325 mg PO Q4-6H PRN (Reason: fever or pain) ibuprofen 600 mg tablet 600 mg PO TID PRN (Reason: fever or pain) acetaminophen 500 mg capsule 1,000 mg PO Q6H PRN (Reason: pain) Qty: 30 0RF methocarbamol 750 mg tablet 750 mg PO Q8H PRN (Reason: muscle spasm) diclofenac sodium 1 % gel 2 g topical QID PRN (Reason: pain) Rx Instructions: apply to hand No Action albuterol sulfate 90 mcg/actuation HFA aerosol inhaler 1 puff inhalation Q4H PRN (Reason: shortness of breath or wheezing) Qty: 6.7 0RF Date of admission: 08/28/24 11:01 Primary Care Provider: Yaneth Wolf Admitting Provider: Shubham Atkins Attending physician on admission: Isai Dunaway Condition: Stable
== END 2024-08-31 12:07 | disposition home or self-care (01) | DRG 177 ==
LOC: ANHED 14:24 → ANH2MED 17:57
PROVIDERS: Emergency Medicine; Nurse Practitioner Gerontology; Admitting Provider Internal Medicine; Emergency Provider General Practice; PCP Family Medicine; Visit Provider Hospitalist
DX: U07.1 COVID-19 (principal); J18.9 Pneumonia, unspecified organism; J44.1 Chronic obstructive pulmonary disease with (acute) exacerbation; J44.0 Chronic obstructive pulmonary disease with (acute) lower respiratory infection; I67.1 Cerebral aneurysm, nonruptured; F41.9 Anxiety disorder, unspecified; F17.210 Nicotine dependence, cigarettes, uncomplicated; Z87.442 Personal history of urinary calculi
CPT/HCPCS: 36415; 71046; 71275; 80053; 83605; 85025; 85380; 87040; 87637; 93005; 96361; 96365; 96368; 96375; 99285; A9270; G0378; J0456; J0696; J1650; J2405; J2919; J7030; J7512; Q9967

== ENCOUNTER 2024-12-09 13:41 | Emergency (ER) | payer MEDICARE, MEDICAID, SELFPAY ==
[2024-12-09] VITALS (8 sets, daily range): BP systolic 99–128; BP diastolic 67–85; PULSE 77–101; RESP 14–23; TEMP 36.4; O2SAT 96–100
--- NOTE | ~2024-12-09 | CT_ITS ---
CTA chest PE protocol Ordering provider: Radha Strickland MD History: 64 years Female with . L chest pain/SETH . Comparison: August 27, 2024 Technique: CT angiogram chest was performed following timed intravenous injection of contrast. Thin s lice axial images and reformatted coronal images were obtained. Three dimensional reformatted images of the chest were also obtained using a [employer] workstation. . Automated exposure control and iterati ve reconstruction technique were employed. The dose-length product was 134.56 mGy-cm. 100 mL Omnipaqu e 350 was given IV. Findings: PULMONARY ARTERIES: No pulmonary embolus. VISUALIZED THORACIC INLET: Normal. MEDIASTINUM: Aorta/coronary arteries: Mild atheromatous disease. Heart/other: The heart is not enlarged. Lymph nodes: No mediastinal or hilar adenopathy. LUNGS: No pulmonary nodules or masses. No infiltrates or effusions. No pneumothorax. VISUALIZED UPPER ABDOMEN: the visualized upper abdomen is normal. MUSCULOSKELETAL: Soft tissues: The superficial soft tissues are normal. Bones: Age appropriate degenerative changes of the spine. IMPRESSION: 1. No pulmonary embolism. 2. No acute cardiopulmonary pathology. Reviewed, dictated and finalized at location A.
--- NOTE | ~2024-12-09 | XR_ITS ---
XR chest 1V portable Ordering provider: Radha Strickland MD History: 64 years Female with . L chest pain/SETH, strep throat . Comparison: August 27, 2024 FINDINGS: MEDIASTINUM: The cardiac silhouette is not enlarged. LUNGS: No infiltrates, effusions or pneumothorax. OTHER: No free air under the diaphragm. IMPRESSION: No acute cardiopulmonary pathology. Reviewed, dictated and finalized at location A.
--- NOTE | 2024-12-09 13:53 | ECG_ITS ---
Test Date: 2024-12-09 13:59:37 Measurements Intervals [place] Rate: 89 P: 63 VT: 119 QRS: 71 QRSD: 81 T: 58 QT: 348 QTc: 425 Interpretive Statements SINUS RHYTHM WITH SHORT VT INTERVAL CONSIDER RIGHT VENTRICULAR CONDUCTION DELAY BORDERLINE ECG Compared to ECG 08/27/2024 13:58:33 HEART RATE HAS DECREASED Electronically Signed On 12-09-2024 14:56:20 CDT by Sam Caicedo D.O.
[2024-12-09] MEDS: IPRATROPIUM 0.5 MG/ALBUTEROL SULFATE 2.5 MG AMPUL.NEB 3 ML INHALATION (13:59)
[2024-12-09 14:04] LABS: Basophils Absolute Auto 0.1 K/mm3 (0.0-0.1); Basophils Percent Auto 1.1 % (0.2-1.2); Eosinophils Absolute Auto 0.1 K/mm3 (0-0.3); Eosinophils Percent Auto 1.6 % (0-4.4); Hematocrit 47.6 % (37.0-47.0); Hemoglobin 16.5 g/dL (12.0-15.0); Immature Granulocyte Absolute 0.01 K/mm3 (0.00-0.031); Immature Granulocyte Percent A 0.2 % (0-0.5); Lymphocytes Absolute Auto 1.83 K/mm3 (0.9-3.2); Lymphocytes Percent Auto 29.2 % (18.3-44.2); Mean Corpuscular HGB Conc 34.7 g/dl (32-36); Mean Corpuscular Hemoglobin 34.7 pg (26-34); Mean Corpuscular Volume 100.2 fl (80-100); Mean Platelet Volume 8.3 fl (7.4-10.4); Monocytes Absolute Auto 0.3 K/mm3 (0.1-0.6); Monocytes Percent Auto 4.5 % (2.6-8.5); Neutrophils Percent Auto 63.4 % (45.5-73.1); Platelet Count Result 198 k/mm3 (150-375); Red Blood Count 4.75 M/mm3 (4.2-5.4); Red Cell Distribution Width 11.9 % (11.5-14.5); White Blood Count 6.3 K/mm3 (4.5-10.0)
[2024-12-09 14:14] LABS: Albumin Level 4.3 g/dL (3.5-5.1); Alkaline Phosphatase 128 U/L (38-126); Anion Gap 9 mmol/L (4-12); Bilirubin,Total 0.7 mg/dL (0.2-1.3); Blood Urea Nitrogen 16 mg/dL (7-17); Carbon Dioxide 19 mmol/L (22-30); Chloride 105 mmol/L (98-107); Estimated CRCL calculation 45 ml/min; Estimated Glomerular Filt Rate > 60; Glucose 99 mg/dL (65-110); Magnesium 1.9 mg/dL (1.6-2.3); Sodium 133 mmol/L (137-145); Total Protein 7.1 g/dL (6.3-8.2)
[2024-12-09 14:20] LABS: D Dimer 1.82 ug/mL (<0.48)
[2024-12-09] MEDS: LORazepam INJ (*CRX) 2 MG/ML VIAL 0.5 MG IV PUSH (14:21)
[2024-12-09] MEDS: SODIUM CHLORIDE 0.9% IV 1,000 ML 999 ML IV CONT (14:22)
[2024-12-09] MEDS: ONDANSETRON INJ 4 MG/2 ML VIAL IV PUSH (14:24)
[2024-12-09 14:25] LABS: NT Pro B Type Natriuretic Pept 89 pg/mL (19.9-100); Troponin I < 0.012 ng/mL (0.000-0.034)
[2024-12-09 14:55] LABS: Lactic Acid Reflex 1.5 mmol/L (0.7-2.0)
--- NOTE | 2024-12-09 15:01 | ED_ITS ---
HPI - SOB/Dyspnea General Chief Complaint: Shortness of Breath/Dyspnea Stated Complaint: SOB Time Seen by Provider: 12/09/24 13:48 History of Present Illness HPI Narrative: Patient presents here with congestion, nausea, cough, some left-sided chest discomfort has been ongoing for last few days, her doctor diagnosed her with strep without any lab tests and she has been feeling worse so came in. Related Data Home Medications ?Medication ?Instructions ?Recorded ?Confirmed ?Last Taken ?Type diclofenac sodium 1 % topical gel 2 g topical QID PRN pain 08/27/24 12/08/24 Unknown History methocarbamol 750 mg tablet 750 mg PO Q8H PRN muscle spasm 08/27/24 12/08/24 Unknown History Allergies Allergy/AdvReac Type Severity Reaction Status Date / Time morphine Allergy Intermediate Hives Verified 08/27/24 13:28 tramadol Allergy Intermediate Hives Verified 12/09/24 13:44 Review of Systems 2 Review of Systems: All systems reviewed & are unremarkable except as noted in HPI and below PMFSH Past Medical History Medical History BMI 20.0-20.9, adult Muscle contraction headache Intracranial aneurysm Left hand pain Right ankle pain Diffuse abdominal pain Abnormal MRI of abdomen RUQ abdominal mass Vaginal discharge Pelvic pain in female Anxiety disorder, unspecified Sore throat LLQ abdominal pain History of kidney stones Surgical History Surgical History H/O hernia repair 04/21/23 Open left sided trocar incisional hernia repair, no mesh. Dr. Salazar Walker [facility] Hx of hernia repair 03/31/23 Robotic assisted right Spigelian hernia repair. Dr. Salazar Walker, [facility] H/O hernia repair 12/13/21 Left lower quadrant incisional hernia and repair of left femoral and obturator hernia repair. Dr. Salazar Walker [facility] of cholecystectomy H/O section Family History Family History (Updated 12/08/24 @ 09:18 by SILVER Spraks) Father Cancer Mother Dementia Family history of Alzheimer's disease Sibling Dementia Sibling Other Family history of malignant neoplasm of ovary Social History Social History (Updated 12/08/24 @ 09:19 by Mariza Hamilton [facility]) Smoking packs per day: 0.5 Smoking cigarettes per day: 10.0 Years smoked: 40 Smoking pack-years: 20.00 Smoking status: Current every day smoker Tobacco type: cigarettes Second hand tobacco smoke exposure: Yes Alcohol intake: current Drinks per week: 5 Alcohol use details: beer socially Substance use: never Substance use type: does not use Do You Feel Safe in your Home?: Yes Lack of Transportation: No Lack of Food: Never True Current Housing: I Have Housing Concerned About Future Housing: No Difficulty Paying Gas/Electric Bills: No Difficulty Paying for Meds: No Currently Unemployed: No Education: Associate Degree Difficulty w/ Childcare or Family Care: No Living arrangements: with family Occupation/Education: occupation 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 EYES: EOMI, conjunctiva normal ENT: Nasal congestion LUNGS: Nonlabored breathing. Clear to auscultation bilaterally HEART: [Regular rate and rhythm] ABD: [Soft], [nontender to palpation] EXT: Normal range of motion SKIN: [No rashes or lesions.] NEURO: [Alert and oriented x 3. No gross focal sensory or strength deficits.] PSYCH: Normal affect Course Vital Signs Vital signs: Vital Signs Temperature 97.6 F 12/09/24 13:51 Pulse Rate 92 12/09/24 13:51 Respiratory Rate 20 12/09/24 13:51 Blood Pressure 113/85 12/09/24 13:51 Pulse Oximetry 98 12/09/24 13:51 Oxygen Delivery Room Air 12/09/24 13:51 Temperature 97.6 F 12/09/24 13:51 Pulse Rate 77 12/09/24 16:20 Respiratory Rate 15 12/09/24 16:20 Blood Pressure 128/67 12/09/24 16:20 Pulse Oximetry 96 12/09/24 16:20 Oxygen Delivery Room Air 12/09/24 14:01 MDM - SOB/Dyspnea MDM Narrative Medical decision making narrative: ED COURSE AND MEDICAL DECISION MAKIN-year-old female presenting with chest pain. EKG done in triage negative for acute ischemic changes. Cardiac workup is initiated. EKG: Performed in triage and interpreted by me. Normal sinus rhythm. Rate 89. Normal axis. OH normal. QRS duration normal. QTc normal. No pathologic Q waves. No ST segment elevation or depression to suggest acute ischemia. No RV strain pattern. HEART score is 2 with no acute ischemic changes on EKG and negative troponin making ACS unlikely. CT PE obtained after positive D-dimer which does not show any acute abnormality. After several rounds of nausea medications, she feels much better and is agreeable to outpatient management. On repeat evaluation just prior to discharge, the patient is no acute distress. I had a long discussion with the patient and with shared decision making, she is comfortable with outpatient management. She was given clear return instructions by myself in person as well as on discharge paperwork. // After discharge, I realized patient's LFTs were quite elevated. She did not have any abdominal pain and her VS were stable; upper lobes of liver captured on CT chest were unremarkable. I have called patient's phone and left VM instructing her to have close followup with PCP for recheck or to return to the ER. I did also try calling both other contacts listed and left VMs. Lab Data 12/09/24 13:59 12/09/24 13:59 Labs: Lab Results 12/09/24 12/09/24 12/09/24 Range/Units 13:59 14:33 14:35 WBC 6.3 (4.5-10.0) K/mm3 RBC 4.75 (4.2-5.4) M/mm3 Hgb 16.5 H D (12.0-15.0) g/dL Hct 47.6 H (37.0-47.0) % MCV 100.2 H (80-100) fl MCH 34.7 H (26-34) pg MCHC 34.7 (32-36) g/dl RDW 11.9 (11.5-14.5) % Plt Count 198 (150-375) k/mm3 MPV 8.3 (7.4-10.4) fl Immature Gran % (Auto) 0.2 (0-0.5) % Neut % (Auto) 63.4 (45.5-73.1) % Lymph % (Auto) 29.2 (18.3-44.2) % Worth % (Auto) 4.5 (2.6-8.5) % Eos % (Auto) 1.6 (0-4.4) % Baso % (Auto) 1.1 (0.2-1.2) % Lymph # (Auto) 1.83 (0.9-3.2) K/mm3 Worth # (Auto) 0.3 (0.1-0.6) K/mm3 Eos # (Auto) 0.1 (0-0.3) K/mm3 Baso # (Auto) 0.1 (0.0-0.1) K/mm3 Abs Immat Gran (auto) 0.01 (0.00-0.031) K/mm3 Absolute Neuts (auto) 4.0 (1.3-6.7) K/mm3 Absolute Nucleated RBC 0.000 (0.0-0.012) K/mm3 Nucleated RBC % 0.0 (0.0-0.2) % D-Dimer 1.82 H (<0.48) ug/mL Sodium 133 L (137-145) mmol/L Potassium 4.0 (3.4-5.0) mmol/L Chloride 105 (98-107) mmol/L Carbon Dioxide 19 L (22-30) mmol/L Anion Gap 9 (4-12) mmol/L BUN 16 (7-17) mg/dL Creatinine 0.81 (0.7-1.0) mg/dL Estim Creat Clear Calc 45 ml/min Estimated GFR > 60 (59 - ) Glucose 99 (65-110) mg/dL Lactic Acid 1.5 (0.7-2.0) mmol/L Calcium 9.0 (8.4-10.2) mg/dL Magnesium 1.9 (1.6-2.3) mg/dL Total Bilirubin 0.7 (0.2-1.3) mg/dL AST 1832 H (14-36) U/L ALT 1625 H (6-35) U/L Alkaline Phosphatase 128 H (38-126) U/L Troponin I < 0.012 (0.000-0.034) ng/mL NT-Pro-B Natriuret Pep 89 (19.9-100) pg/mL Total Protein 7.1 (6.3-8.2) g/dL Albumin 4.3 (3.5-5.1) g/dL Influenza A (RT-PCR) Negative (Negative) Influenza B (RT-PCR) Negative (Negative) RSV (RT-PCR) Negative (Negative) SARS-CoV-2 RNA (RT-PCR) Negative (Negative) Group A Strep (PCR) Not detected (Negative) Discharge Plan Discharge Clinical Impression: Acute viral syndrome Patient Disposition: Home Condition: Stable Instructions: Viral Syndrome (ED) Additional Instructions: Please follow up with your doctor; try the medications as prescribed. You can always return for any further issues. Patient Language: Omani Prescriptions: New famotidine 20 mg tablet 20 mg PO DAILY Qty: 30 0RF ondansetron 4 mg tablet,disintegrating 4 mg PO Q8H PRN (Reason: nausea and vomiting) Qty: 14 0RF fluticasone propionate [Allergy Relief (fluticasone)] 50 mcg/actuation spray,suspension 1 spray intranasal DAILY Qty: 16 0RF Rx Instructions: administer into each nostril No Action amoxicillin-pot clavulanate 875-125 mg tablet 1 tablet PO BID 5 Days Qty: 10 0RF budesonide-formoterol [Symbicort] 80-4.5 mcg/actuation HFA aerosol inhaler 1 inh inhalation .q4 PRN (Reason: shortness of breath) Qty: 10.2 1RF Rx Instructions: 1 inhalation as needed every 4 hours. methocarbamol 750 mg tablet 750 mg PO Q8H PRN (Reason: muscle spasm) diclofenac sodium 1 % gel 2 g topical QID PRN (Reason: pain) Rx Instructions: apply to hand Follow-up/Referrals: Yaneth Wolf, [Primary Care Provider] -
[2024-12-09 15:08] LABS: Strep Group A RT-PCR NOT DETECTED (Negative)
[2024-12-09 15:19] LABS: Influenza A QL RT-PCR Negative (Negative); Influenza B QL RT-PCR Negative (Negative); RSV RNA, RT-PCR Negative (Negative); SARS-CoV-2 RNA PCR Negative (Negative)
[2024-12-09 15:46] LABS: Alanine Aminotransferase 1625 U/L (6-35); Aspartate Amino Transferase 1832 U/L (14-36)
[2024-12-09] MEDS: METOCLOPRAMIDE HCL INJ 10 MG/2 ML VIAL IV PUSH (16:24)
[2024-12-09] MEDS: diphenhydrAMINE HCl INJ 50 MG/ML VIAL 25 MG IV PUSH (16:24)
== END 2024-12-09 16:35 | disposition home or self-care (01) ==
PROVIDERS: Emergency Provider Emergency Medicine; PCP Family Medicine
DX: B34.9 Viral infection, unspecified (principal); F17.210 Nicotine dependence, cigarettes, uncomplicated; Z20.822 Contact with and (suspected) exposure to COVID-19
CPT/HCPCS: 36415; 71045; 71275; 80053; 83605; 83735; 83880; 84484; 85025; 85380; 87040; 87637; 87651; 93005; 94640; 96361; 96374; 96375; 99284; J1200; J2060; J2405; J2765; J7030; Q9967